=== PATIENT | female | born 1955 | race Caucasian/White ===

== ENCOUNTER → 2017-03-03 | Outpatient (CLI) | payer OTHER | LOC: BMCIMAGING 13:41 | PROVIDERS: ATTEND Family Medicine | DX: S22.41XA Multiple fractures of ribs, right side, initial encounter for closed fracture (principal) | CPT/HCPCS: 71101-PO ==

== ENCOUNTER → 2017-03-11 | Outpatient (CLI) | payer OTHER | LOC: FIMAGING 15:06 | PROVIDERS: ATTEND Physician Assistant | DX: M79.89 Other specified soft tissue disorders (principal) ==

== ENCOUNTER → 2017-11-10 | Outpatient (CLI) | payer OTHER ==
[~2017-11-10] MED LIST: GADOBUTROL 10 ML VIAL IVP ONE
== END ==
LOC: FIMAGING 15:07
PROVIDERS: ATTEND Psychiatry & Neurology Neurology
DX: D32.9 Benign neoplasm of meninges, unspecified (principal); G93.89 Other specified disorders of brain
CPT/HCPCS: A9585

== ENCOUNTER → 2017-12-03 | Outpatient (CLI) | payer OTHER | LOC: FIMAGING 07:10 | PROVIDERS: ATTEND Psychiatry & Neurology Neurology | DX: D32.9 Benign neoplasm of meninges, unspecified (principal); H57.12 Ocular pain, left eye; H53.8 Other visual disturbances; H05.20 Unspecified exophthalmos | CPT/HCPCS: A9585 ==

== ENCOUNTER 2017-12-15 08:48 | Inpatient (IN) | payer OTHER ==
--- NOTE | 2017-12-15 08:54 | EDPHY ---
HPI/HX/ROS/PE/MDM Narrative: CHIEF COMPLAINT: Right-sided weakness, stroke alert HPI: The patient is a 62 y/o female with a history of a hemorrhagic stroke in 2013 and complex migraines arriving via EMS as a stroke alert for worsened right -sided contractures and slurred speech. After her previous stroke, she was left with right-sided deficits but had some mobility and sensation and is continent. SHe has been experiencing stomach pain and abdominal weight gain (about 25 pounds) for a few weeks. She saw her PCP earlier this week and an abdominal ultrasound was schedules for Thursday. This morning, around 4:00 AM, 5 hours ago , she awoke with stomach pain. At that time it was noted that her right arm had reduced function. This had happened before and usually resolves. After about 20 minutes, her reports she fell asleep. Around 5:00 AM, the reduced right arm movement hadn't resolved and she had developed slurred speech and a slight facial droop. These symptoms are consistent with her complex migraines. She requested to go to the bathroom and her attempted to help her. He was unable to bend her right leg, a new symptom for her. She was incontinent of urine in bed. Her had her go back to sleep, which usually helps with her complex migraines. Around 8:00 AM, when she awoke, she still hadn't improved. At that time, her decided to call EMS for evaluation of her symptoms. REVIEW OF SYSTEMS: Aside from elements discussed in the HPI, a comprehensive 10-point review of systems was reviewed and is negative. PMH: Hemorrhagic stroke in 2013 with resulting right sided deficits, complex migraines with symptoms mimicking strokes SOCIAL HISTORY: Lives in [place], , retired PHYSICAL EXAM: General: Patient is alert, in no acute distress. ENT: Eyes are normal to inspection. Right-sided facial droop noted. Neck: Normal inspection. Full range of motion. Respiratory: No respiratory distress. Breath sounds normal bilaterally. Cardiovascular: Regular rate and rhythm. Strong peripheral pulses. Normal cap refill. Abdomen: The abdomen is nontender to palpation. There are no peritoneal signs. There are normal bowel sounds. Back: Normal to inspection. No tenderness to palpation. Skin: Normal color. No rash. Warm and dry. Extremities: Normal appearance. Full range of motion. Neuro: Right arm contracture, left had pill rolling tremor. Alert and responsive to commands. Slurred speech. ED Course: Study: CT of the head and neck Indication: Worsened right-sided weakness Results: CT scan of the head and neck was obtained. The results of the study are : negative for acute process The study was read by the radiologist, Dr. Trujillo. I viewed the images myself on the PACS system. Study: CTA of the head and neck Indication: Worsened right-sided weakness, normal CT Results: CTA scan of the head and neck was obtained. The results of the study are: negative for acute process The study was read by the radiologist, Dr. Trujillo. I viewed the images myself on the PACS system. Study: X-ray of the chest Indication: Abdominal pain, weight gain Results: X-ray of the chest was obtained. The results of the study are: possible fluid overload or bronchitis The study was read by the radiologist, Dr. Rueda. I viewed the images myself on the PACS system. Study: Ultrasound of the abdomen Indication: Abdominal pain and weight gain Results: Ultrasound of the abdomen was obtained. The results of the study are: negative for acute findings The study was read by the radiologist, Dr. Rueda. I viewed the images myself on the PACS system. The patient presents with worsened right-sided weakness, facial droop, and slurred speech. I met her in the [facility] on EMS arrival at 8:52. After EMS report I sent her straight to CT. 9:01 AM- I evaluated her non-contrast CT and did not find evidence of a bleed. I will contact [facility]. 9:06 AM- [facility] was reached. They advised a CTA for further imaging. Since this patient is not a candidate for TPA they will not evaluate this patient at this time. 9:32 AM- The patient has had her CTA. At this time her is at the bedside. I performed a complete evaluation and was informed of the history of complex migraines that mimic stroke symptoms and the abdominal weight gain and pain. If her CTA is not indicative of a clot, imaging for a stroke will be discontinued as the patient has a history of complex migraines with similar symptoms. If she does not return to near baseline, plan for admission for observation. 10:24 AM- I spoke with the hospitalist service regarding admission for this patient. Dr. Black will admit this patient. I paged neurology. Dr. Parham, neurology agrees to consult. 11:52 AM- Patient reports that "everything hurts." I have ordered Toradol. MDM: This patient presents as a stroke alert given acute onset of worsening of chronic weakness. Thankfully CTH and CTA are negative. We have been unable to obtain a urine specimen so far. The patient will need to be admitted for further observation and workup. Etiology of symptoms is currently unknown. I see no evidence of ACS, hyponatremia, hemorrhagic CVA, concussion or ARF. Her PCP has apparently been working her up for abdominal pain and her has requested an US of her abdomen which was ordered. - Data Points Imaging Results: Imaging Impressions Chest X-Ray 12/15/17 08:50 Impression: Hypoventilatory chest with mild peribronchial thickening that could be related to fluid overload or bronchitis. Head CT 12/15/17 08:50 Impression: 1. No acute intracranial hemorrhage or evidence of acute ischemia. 2. Extensive encephalomalacia and atrophy involving bilateral parietal, left frontal, and posterior left temporal lobes have not significantly changed. Findings discussed with Emergency Department physician, Ankush Dallas MD on at 9:10 a.m. Head CTA 12/15/17 09:08 Impression: 1. Normal intracranial arterial circulation. No evidence of embolic disease or aneurysm. 2. Small caliber sagittal sinus and numerous enlarged cortical draining veins are unchanged since 2012. Findings discussed with Emergency Department physician, Ankush Dallas MD, on 12/15/2017 at 9:50 a.m. Neck CTA 12/15/17 09:08 Impression: Widely patent carotid and vertebral arteries. No occlusion or dissection. Measurement of carotid stenosis is based on the residual internal carotid diameter with [place] Symptomatic Carotid Endarterectomy Trial (NASCET) based stenosis levels. Findings discussed with Emergency Department physician, Ankush Dallas MD on 12/15/2017 at 9:50 a.m. Abdomen Ultrasound 12/15/17 09:39 Impression: Limited abdominal ultrasound with no definite acute findings, with limited visibility of the gallbladder and liver and nonvisualization of the spleen. Findings discussed with Ankush Dallas MD on 12/15/2017 at 10:36 a.m. e:[id number] Laboratory Results: Laboratory Results 12/15/17 08:45 12/15/17 08:45 12/15/17 12/15/17 12/15/17 09:14 08:46 08:45 WBC RBC Hgb POC Hgb 14.6 gm/dL gm/dL (12.6-16.3) Hct POC Hct 43 % % (38-47) MCV MCH MCHC RDW Plt Count MPV Neut % (Auto) Lymph % (Auto) Gilchrist % (Auto) Eos % (Auto) Baso % (Auto) Nucleat RBC Rel Count Absolute Neuts (auto) Absolute Lymphs (auto) Absolute Monos (auto) Absolute Eos (auto) Absolute Basos (auto) Absolute Nucleated RBC Immature Gran % Immature Gran # PT 13.2 SEC SEC (12.0-15.0) INR 0.98 (0.83-1.16) POC Sodium 139 mEq/L mEq/L (135-145) Sodium 138 mEq/L mEq/L (135-145) POC Potassium 4.2 mEq/L mEq/L (3.3-5.0) Potassium 4.7 mEq/L mEq/L (3.5-5.2) POC Chloride 102 mEq/L mEq/L (97-110) Chloride 104 mEq/L mEq/L (97-110) Carbon Dioxide 23 mEq/l mEq/l (22-31) Anion Gap 11 mEq/L mEq/L (8-16) POC BUN 20 mg/dL mg/dL (7-23) BUN 19 mg/dL mg/dL (7-23) Creatinine 0.7 mg/dL mg/dL (0.6-1.0) POC Creatinine 0.8 mg/dL mg/dL (0.6-1.0) Estimated GFR > 60 Glucose 80 mg/dL mg/dL (70-100) POC Glucose 84 mg/dL mg/dL (70-100) Calcium 9.9 mg/dL mg/dL (8.5-10.4) 12/15/17 12/15/17 08:45 08:45 WBC 3.17 10^3/uL L 10^3/uL (3.80-9.50) RBC 4.52 10^6/uL 10^6/uL (4.18-5.33) Hgb 14.6 g/dL g/dL (12.6-16.3) POC Hgb Hct 42.9 % % (38.0-47.0) POC Hct MCV 94.9 fL fL (81.5-99.8) MCH 32.3 pg pg (27.9-34.1) MCHC 34.0 g/dL g/dL (32.4-36.7) RDW 13.0 % % (11.5-15.2) Plt Count 234 10^3/uL 10^3/uL (150-400) MPV 9.9 fL fL (8.7-11.7) Neut % (Auto) 52.4 % % (39.3-74.2) Lymph % (Auto) 34.1 % % (15.0-45.0) Gilchrist % (Auto) 11.0 % % (4.5-13.0) Eos % (Auto) 1.6 % % (0.6-7.6) Baso % (Auto) 0.6 % % (0.3-1.7) Nucleat RBC Rel Count 0.0 % % (0.0-0.2) Absolute Neuts (auto) 1.66 10^3/uL L 10^3/uL (1.70-6.50) Absolute Lymphs (auto) 1.08 10^3/uL 10^3/uL (1.00-3.00) Absolute Monos (auto) 0.35 10^3/uL 10^3/uL (0.30-0.80) Absolute Eos (auto) 0.05 10^3/uL 10^3/uL (0.03-0.40) Absolute Basos (auto) 0.02 10^3/uL 10^3/uL (0.02-0.10) Absolute Nucleated RBC 0.00 10^3/uL 10^3/uL (0-0.01) Immature Gran % 0.3 % % (0.0-1.1) Immature Gran # 0.01 10^3/uL 10^3/uL (0.00-0.10) PT REJ INR REJ POC Sodium Sodium POC Potassium Potassium POC Chloride Chloride Carbon Dioxide Anion Gap POC BUN BUN Creatinine POC Creatinine Estimated GFR Glucose POC Glucose Calcium Medications Given: Discontinued Medications Ketorolac Tromethamine (Toradol) 15 mg IVP EDNOW ONE Stop: 12/15/17 11:53 Last Admin: 12/15/17 11:56 Dose: 15 mg Point of Care Test Results: 12/15/17 08:46 POC Sodium 139 POC Potassium 4.2 POC Chloride 102 POC BUN 20 POC Creatinine 0.8 POC Glucose 84 General Initial Vital Signs: Initial Vital Signs Temperature (C) 37 C 12/15/17 08:48 Heart Rate 65 12/15/17 08:48 Respiratory Rate 16 12/15/17 08:48 Blood Pressure 131/86 H 12/15/17 08:48 O2 Sat (%) 92 12/15/17 08:48 O2 Delivery Mode Room Air Allergies/Adverse Reactions: No Allergies [NKA] Allergy (Verified 12/15/17 09:07) Home Medications: Medication Instructions Recorded Sertraline HCl [Zoloft 50mg (*)] 50 mg PO DAILY #30 tab 01/05/15 Baclofen [Baclofen 10 mg (*)] 15 mg PO BID@08,16 02/01/16 Baclofen [Baclofen 10 mg (*)] 20 mg PO HS 02/01/16 Carbidopa/Levodopa 25/100Mg 1 tab PO BID@,21 02/01/16 [Sinemet 25/100 MG (*)] Carbidopa/Levodopa 0.5 tab PO DAILY@16 02/01/16 [Carbidopa-Levodopa 25-100 Tab] levETIRAcetam [Keppra 500 mg (*)] 1,000 mg PO DAILY 02/01/16 levETIRAcetam [Keppra 500 mg (*)] 500 mg PO HS 02/01/16 Diazepam [Valium 5 MG (*)] 5 mg PO BID PRN 12/15/17 levETIRAcetam [Keppra 250 mg (*)] 250 mg PO DAILY 12/16/17 Departure - Departure Disposition: [facility] Inpatient Acute Clinical Impression: Altered mental status Qualifiers: Altered mental status type: unspecified Qualified Code(s): R41.82 - Altered mental status, unspecified Condition: Fair Report Scribed for: Ankush Dallas Report Scribed by: Daysi Li Date of Report: 12/15/17 Time of Report: 08:55 Physician Review and Approval Statement: Portions of this note were transcribed by an ED scribe. I personally performed the history, physical exam, and medical decision making; and confirm the accuracy of the information in the transcribed note.
[2017-12-15 09:04] LABS: PLATELET COUNT 234 10^3/uL (150-400)
--- NOTE | 2017-12-15 09:08 | CPEKG ---
Heart Rate: 63 RR Interval: 952 P-R Interval: 204 QRSD Interval: 92 QT Interval: 460 QTC Interval: 471 P [place]: 39 QRS [place]: -36 T Wave [place]: 54 EKG Severity - OTHERWISE NORMAL ECG - EKG Impression: SINUS RHYTHM EKG Impression: LEFT AXIS DEVIATION Electronically Signed By: Ankush Dallas 15-Dec-2017 13:34:30
[2017-12-15] MEDS ORDERED: IOPAMIDOL (ISOVUE 370) 100 ML BTL IV ONE (09:15)
[2017-12-15 09:30] LABS: INR 0.98 (0.83-1.16); PROTIME(PATIENT) 13.2 SEC (12.0-15.0)
[2017-12-15] MEDS ORDERED: KETOROLAC 15 MG/1 ML SDV IVP ONE (11:52)
[2017-12-15] MEDS ORDERED: ONDANSETRON DISINTEGRATING 4 MG TAB PO PRN (15:27)
[2017-12-15] MEDS ORDERED: ACETAMINOPHEN 325 MG TAB PO PRN (15:27)
[2017-12-15] MEDS ORDERED: oxyCODONE IR 5 MG TAB PO PRN (15:27)
[2017-12-15] MEDS ORDERED: ONDANSETRON 4 MG/2 ML VIAL IVP PRN (15:27)
[2017-12-15] MEDS ORDERED: NS 1,000 ML IV SCH (15:30)
[2017-12-15] MEDS: BACLOFEN 10 MG TAB PO SCH ×3 (15:49→22:07)
--- NOTE | 2017-12-15 15:59 | GHP ---
[f rep st] HISTORY AND PHYSICAL DATE OF ADMISSION: 12/15/2017 CHIEF COMPLAINT: Right-sided weakness. HISTORY OF PRESENT ILLNESS: This is a 62-year-old female with a history of meningioma that has been resected 4 times, as well as a hemorrhagic stroke resulting in chronic right-sided deficits and what appears to be complex migraines with worsening of those deficits, mimicking stroke symptoms in the [address]. These episodes usually cluster around every 6 months and occur several times within the month. They usually manifest as right-sided facial droop, some aphasia, stiffness in her right arm. Patient has not been feeling well for the last week and has had abdominal pain as well as weight gain , which has all been in her abdomen. She was actually scheduled for an abdominal ultrasound for this . This morning she woke again with the stomach pain and then had essentially symptoms similar to her complex migraine syndrome. However, symptoms seem to be worse in severity, and they are not clearin g as quickly as before. Currently, she is somewhat responsive to questions but somnolent and mildly aphasic. History is obtained from her . She has not been having any fevers or chills. She i s not having a headache now. Again, these symptoms are similar in nature to her previous complex jimenez luis miguel but are worse than normal. REVIEW OF SYSTEMS: Limited review of systems obtained secondary to patient's somnolence. PAST MEDICAL HISTORY: 1. Meningiomas with multiple resections. 2. Hemorrhagic stroke, which left her with the right arm and the right leg weakness. 3. 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 4. Complex migraines as above, mimicking stroke. 5. History of focal seizure disorder. 6. History of occipital condylar fracture. 7. Multiple orthopedic injuries. SOCIAL HISTORY: No smoking. Lives with her . FAMILY HISTORY: Reviewed, noncontributory. PHYSICAL EXAM: VITAL SIGNS: Afebrile. Blood pressure is 128/81, heart rate 63, oxygen saturation 9 7% on 2 L. GENERAL: Patient is well developed. No apparent distress. HEENT: Nonicteric sclerae. Moist mucous membranes. NECK: Supple. No thyromegaly. LUNGS: Good effort. Clear to auscultatio n bilaterally. CARDIOVASCULAR: Regular rate and rhythm. No murmurs or gallops. ABDOMEN: It is so mewhat distended but soft, nontender. EXTREMITIES: No clubbing, cyanosis, or edema. SKIN: Without rash. Warm, dry, intact. NEUROLOGIC: Mild right facial droop. Some expressive aphasia and somnol ence. Right arm is spastically contracted. LABORATORY DATA: White count is 3, hemoglobin 14. Chemistries normal. LFTs a few days ago showed j ust a minimal elevation of AST. IMAGING: CT scans of the head and CT scans of the neck showed extensive encephalomalacia, which is u nchanged. No evidence of any embolism or clot. Abdominal ultrasound was unable to really assess the gallbladder. ASSESSMENT: A 62-year-old female presenting with what seems to be complex migraine symptoms along wi th abdominal pain and abdominal distention. PLAN: 1. Probable complex migraine syndrome. The patient does have baseline deficits in the right side, a nd these seem to be worse and are exacerbated with what have been called complex migraines. She has presented with basically the same symptomatology, although it has been worse. Neurology has been con sulted and will see if there is any indication for some preventative medications. 2. Abdominal pain, weight gain, and abdominal distention. Will get a CAT scan of her abdomen and pe lvis. Would like to give her contrast, although she has received a lot of contrast with her CTAs. W ill hold off and get that in the morning. 3. History of encephalomalacia, meningiomas, previous bleed, with chronic right-sided weakness. 4. History of partial seizures. 5. History of spasms. Will continue the baclofen. /[id number]/MODL
--- NOTE | 2017-12-15 16:21 | NEUROPROG ---
Assessment: Pt seen and examined, note to come later today. Will obtain brain MRI w/o con as next step in evaluation. Objective: Vital Signs Temp Pulse Resp BP Pulse Ox 36.4 C 63 16 128/81 H 97 12/15/17 12:59 12/15/17 12:59 12/15/17 12:59 12/15/17 12:59 12/15/17 12:59 PT 13.2 SEC (12.0-15.0) 12/15/17 09:14 INR 0.98 (0.83-1.16) 12/15/17 09:14 Allergies/Adverse Reactions: No Allergies [NKA] Allergy (Verified 12/15/17 09:07)
--- NOTE | 2017-12-15 19:22 | NEUROPROG ---
Assessment: [id number] - Neurology Consult: - CC: Worsening right sided weakness - HPI: The patient was brought to [facility] ER on 12/15/17 for right sided weakness. She had a history of multiple brain surgeries to remove meningiomas, a hemorrhagic stroke in 2013, as well as complex migraines. After her 2013 stroke she was left with right sided weakness. She has been working with her PCM for stomach pain in the last week. This morning she awoke with stomach pain at 4 am but also noted worsened right-sided weakness. This had occurred before and usually resolves but by 5am the right arm was still weak and she was also noting some right facial droop and slurred speech. She has had complex migraines in the past with these symptoms. Her also noted right leg weakness and urinary incontinence. She fell back asleep but awoke at 8 am w/o improvement of symptoms so EMS was called. Head CT and CTA head/neck showed no new acute changes. Pt was admitted for further evaluation and neurology was consulted. I initially saw the patient on 12/15/17. Her neurologic exam showed right arm/ leg weakness with spasticity and she was somnolent and in pain (recently received narcotics). I was not sure what was causing her symptoms so I ordered a brain MRI w/o con. - PMHx: hemorrhagic stroke 2013 w/resulting right sided deficits, complex migraines, multiple meningiomas with surgical revision - SHx: lives in [place] FHx: grandparents - ROS: Pt denied acute fever, total vision loss, active severe chest pain, respiratory failure, total body severe rash, total bowel/bladder incontinence, psychosis, active seizures, or active bleeding - O: VS reviewed General: Somnolent Eyes: Fundoscopic exam not able to visualize optic disks CV: Heart RRR, no murmur, no carotid bruit Lungs: Clear to auscultation bilaterally, no rhonchi or rales Neuro: - Mental: . Oriented x person/place but not date . concentration appears reduced . speech fluency/comprehension reduced . memory appears reduced . fund of knowledge appear reduced - Cranial Nerves: . II: PERRL, VFFTC . III/IV/: EOMI, no nystagmus, normal smooth pursuits, no Ptosis . V: facial sensation intact to LT . VII: face symmetry difficult as patient in pain and will not relax . VIII: hearing intact to conversation . IX/X: pt will not participate in testing . XI: pt will not participate in testing . XII: pt will not participate in testing - Motor: . Tone: increased in right arm/leg . Strength: right arm and right leg appear weak and spastic but pt will not relax to allow full strength testing - Reflexes: left bic 2/4 - Sensory: all 4 extremity intact to light touch - Coord: pt will not participate in testing - Gait: deferred - Labs: 12/15/17- CBC WBC 3.17L, Chem wnl - Rads: 12/15/17- Head CT: no acute changes, Extensive encephalomalacia and atrophy involving bilateral parietal, left frontal, and posterior left temporal lobes have not significantly changed (I personally visualized the images on 12/15/17) 12/15/17- Head/neck CTA: no significant findings - Assessment: 1. Worsening right sided weakness in patient with previous hemorrhagic stroke in 2013 and multiple meningioma resections with residual right sided weakness: Her neurologic exam showed on 12/15/17 showed right arm/leg weakness with spasticity and she was somnolent and in pain (recently received narcotics). I suspect her recent stomach pain and associated stress has liked stressed her body and caused recrudescence of right sided weakness from previous stroke in 2013. She has been symptomatic for > 12 hours so I will obtain a brain MRI and if no acute stroke is seen I will conclude she is having recurrence of old stroke weakness. Treatment would then be supportive. - Plan: - Brain MRI w/o con to evaluate for new ischemic stroke - PT/OT/Speech consult - F/u 1-[address] Keenan (neurology) after discharge Objective: Vital Signs Temp Pulse Resp BP Pulse Ox 36.4 C 63 16 128/81 H 97 12/15/17 12:59 12/15/17 12:59 12/15/17 12:59 12/15/17 12:59 12/15/17 12:59 12/14/17 12/15/17 12/16/17 05:59 05:59 05:59 Intake Total 250 Balance 250 PT 13.2 SEC (12.0-15.0) 12/15/17 09:14 INR 0.98 (0.83-1.16) 12/15/17 09:14 Allergies/Adverse Reactions: No Allergies [NKA] Allergy (Verified 12/15/17 09:07)
[2017-12-15] MEDS: levETIRAcetam 500 MG TAB PO SCH (22:05)
[2017-12-16] MEDS: DIAZEPAM 5 MG TAB PO PRN (00:07)
[2017-12-16 05:46] LABS: PLATELET COUNT 197 10^3/uL (150-400)
[2017-12-16] MEDS: levETIRAcetam 500 MG TAB PO SCH ×2 (09:11→20:39)
[2017-12-16] MEDS: SERTRALINE HCL 50 MG TAB PO SCH (09:12)
[2017-12-16] MEDS: BACLOFEN 10 MG TAB PO SCH ×3 (09:22→20:39)
--- NOTE | 2017-12-16 09:46 | NEUROPROG ---
Assessment: [id number] - Neurology Consult: - CC: Worsening right sided weakness - Narrative Summary: The patient was brought to [facility] ER on 12/15/17 for right sided weakness. She had a history of multiple brain surgeries to remove meningiomas, a hemorrhagic stroke in 2013, as well as complex migraines. After her 2013 stroke she was left with right sided weakness. She has been working with her PCM for stomach pain in the last week. This morning she awoke with stomach pain at 4 am but also noted worsened right-sided weakness. This had occurred before and usually resolves but by 5am the right arm was still weak and she was also noting some right facial droop and slurred speech. She has had complex migraines in the past with these symptoms. Her also noted right leg weakness and urinary incontinence. She fell back asleep but awoke at 8 am w/o improvement of symptoms so EMS was called. Head CT and CTA head/neck showed no new acute changes. Pt was admitted for further evaluation and neurology was consulted. I initially saw the patient on 12/15/17. Her neurologic exam showed right arm/ leg weakness with spasticity and she was somnolent and in pain (recently received narcotics). I was not sure what was causing her symptoms so I ordered a brain MRI w/o con. - HPI: Inpatient f/u 12/16/17. Brain MRI pending. Pt more alert today. She denied new problems. - PMHx: hemorrhagic stroke 2013 w/resulting right sided deficits, complex migraines, multiple meningiomas with surgical revision - SHx: lives in [place] FHx: grandparents - ROS: Pt denied acute fever, total vision loss, active severe chest pain, respiratory failure, total body severe rash, total bowel/bladder incontinence, psychosis, active seizures, or active bleeding - Labs: 12/15/17- CBC WBC 3.17L, Chem wnl - Rads: 12/15/17- Head CT: no acute changes, Extensive encephalomalacia and atrophy involving bilateral parietal, left frontal, and posterior left temporal lobes have not significantly changed (I personally visualized the images on 12/15/17) 12/15/17- Head/neck CTA: no significant findings - Assessment: 1. Worsening right sided weakness in patient with previous hemorrhagic stroke in 2013 and multiple meningioma resections with residual right sided weakness: Her neurologic exam showed on 12/15/17 showed right arm/leg weakness with spasticity and she was somnolent and in pain (recently received narcotics). I suspect her recent stomach pain and associated stress has liked stressed her body and caused recrudescence of right sided weakness from previous stroke in 2013. She has been symptomatic for > 12 hours so I will obtain a brain MRI and if no acute stroke is seen I will conclude she is having recurrence of old stroke weakness. Treatment would then be supportive. - Plan: - Brain MRI w/o con to evaluate for new ischemic stroke - PT/OT/Speech consult - F/u 1-[address] Keenan (neurology) after discharge - 35 min spent with patient, her nurse, and the patients outpatient neurologist ( Dr. Keenan) counseling and coordinating care. Objective: Vital Signs Temp Pulse Resp BP Pulse Ox 36.4 C 66 12 97/75 L 93 12/16/17 08:00 12/16/17 08:00 12/16/17 08:00 12/16/17 08:00 12/16/17 08:00 Laboratory Results 12/16/17 05:36 12/16/17 05:36 12/15/17 12/16/17 12/17/17 05:59 05:59 05:59 Intake Total 250 620 Output Total 700 Balance -450 620 PT 13.2 SEC (12.0-15.0) 12/15/17 09:14 INR 0.98 (0.83-1.16) 12/15/17 09:14 Allergies/Adverse Reactions: No Allergies [NKA] Allergy (Verified 12/15/17 09:07)
--- NOTE | 2017-12-16 09:55 | PDMN ---
Medical Necessity Medical necessity: M185 Headache- complex migraine vs. Neuro consult pending pt with weakness R side, with hx of encephalomalacia, meningiomas, previous bleed chronic R sided wekness, Hx of partial SZ, spasms, Pt also presenting with abd pain, wt gain, distention. further eval, monitoring and tx needed
--- NOTE | 2017-12-16 10:13 | ASMTCASEMG ---
Living Arrangements What is your living Answers: With Spouse arrangement? Who do you live with? Type Of Residence What kind of residence do Answers: House you live in? Discharge Plan Comments Coordination Status Comments Notes: Pt is a 62 y/o female admitted for altered mental status and right sided weakness. Needs are TBD at this time. PT, OT, [employer] has been ordered and awaiting recommendations. Neurology has been consulted. CM to follow. Plan: TBD Date Signed: 12/16/2017 10:12 AM Electronically Signed By:SHAHID Haro
[2017-12-16] MEDS ORDERED: IOPAMIDOL (ISOVUE-300) 100 ML BTL ONE (10:47)
[2017-12-16] MEDS ORDERED: MAGNESIUM HYDROXIDE 30 ML UDCUP PO ONE (14:13)
--- NOTE | 2017-12-16 14:13 | HOSPPROG ---
Hospitalist Progress Note Assessment/Plan: * probable complex migraine * MRI does not show any new CVA * Is getting better but not strong enough to go home * Probably home tomorrow * abdominal pain and distention * CT scan shows only constipation * Will start laxatives * Follow up primary care * history of meningiomas * history of intracranial hemorrhage * history of seizure Subjective: Feels a lot better but not at baseline Objective: Vital Signs Temp Pulse Resp BP Pulse Ox 35.7 C L 66 14 128/84 H 94 12/16/17 12:00 12/16/17 12:00 12/16/17 12:00 12/16/17 12:00 12/16/17 12:00 Laboratory Results 12/16/17 05:36 12/16/17 05:36 12/15/17 12/16/17 12/17/17 05:59 05:59 05:59 Intake Total 250 620 Output Total 700 350 Balance -450 270 PT 13.2 SEC (12.0-15.0) 12/15/17 09:14 INR 0.98 (0.83-1.16) 12/15/17 09:14 - Physical Exam Constitutional: no apparent distress, appears nourished, not in pain Cardiovascular: regular rate and rhythym, no murmur, rub, or gallop Respiratory: no respiratory distress Gastrointestinal: normoactive bowel sounds, soft, non-tender abdomen Neurologic: AAOx3, weakness (Right-sided weakness with less spasticity), facial droop (Right), other (Slight aphasia) Psychiatric: interacting appropriately, not anxious, not encephalopathic ICD10 Worksheet Patient Problems: Problems Problem Status Onset Altered mental status Acute Concussion injury of brain Active Intracranial meningioma Active Migraine with aura Active Seizure disorder Active flatfoot Active Acute encephalopathy Acute Intracerebral hematoma Acute
[2017-12-16] MEDS: POLYETHYLENE GLYCOL 3350 17 GM PKT PO SCH ×2 (15:45→15:52)
[2017-12-16] MEDS: CARBIDOPA/LEVODOPA 25 MG/100 MG TAB PO SCH ×2 (15:46→20:38)
[2017-12-17] MEDS: DIAZEPAM 5 MG TAB PO PRN ×2 (00:09→21:00)
[2017-12-17] MEDS: BACLOFEN 10 MG TAB PO SCH ×3 (08:48→20:40)
[2017-12-17] MEDS: levETIRAcetam 500 MG TAB PO SCH ×2 (08:49→20:40)
[2017-12-17] MEDS: CARBIDOPA/LEVODOPA 25 MG/100 MG TAB PO SCH ×3 (08:49→20:40)
[2017-12-17] MEDS: SERTRALINE HCL 50 MG TAB PO SCH (08:49)
[2017-12-17] MEDS: POLYETHYLENE GLYCOL 3350 17 GM PKT PO SCH (08:50)
--- NOTE | 2017-12-17 09:51 | NEUROPROG ---
Assessment: [id number] - Neurology Consult: - CC: Worsening right sided weakness - Narrative Summary: The patient was brought to [facility] ER on 12/15/17 for right sided weakness. She had a history of multiple brain surgeries to remove meningiomas, a hemorrhagic stroke in 2013, as well as complex migraines. After her 2013 stroke she was left with right sided weakness. She has been working with her PCM for stomach pain in the last week. This morning she awoke with stomach pain at 4 am but also noted worsened right-sided weakness. This had occurred before and usually resolves but by 5am the right arm was still weak and she was also noting some right facial droop and slurred speech. She has had complex migraines in the past with these symptoms. Her also noted right leg weakness and urinary incontinence. She fell back asleep but awoke at 8 am w/o improvement of symptoms so EMS was called. Head CT and CTA head/neck showed no new acute changes. Pt was admitted for further evaluation and neurology was consulted. I initially saw the patient on 12/15/17. Her neurologic exam showed right arm/ leg weakness with spasticity and she was somnolent and in pain (recently received narcotics). I was not sure what was causing her symptoms so I ordered a brain MRI w/o con. - Inpatient f/u 12/16/17. Brain MRI pending. Pt more alert today. She denied new problems. - HPI: F/U 12/17/17. Brain MRI showed no acute stroke (results below) and pt doing much better today. I expect her worsening right sided weakness was recrudescence of old stroke symptoms. Treatment is supportive. No further inpatient w/u needed. - PMHx: hemorrhagic stroke 2014 w/resulting right sided deficits, complex migraines, multiple meningiomas with surgical revision - SHx: lives in [place] FHx: grandparents - ROS: Pt denied acute fever, total vision loss, active severe chest pain, respiratory failure, total body severe rash, total bowel/bladder incontinence, psychosis, active seizures, or active bleeding - Labs: 12/15/17- CBC WBC 3.17L, Chem wnl - Rads: 12/15/17- Head CT: no acute changes, Extensive encephalomalacia and atrophy involving bilateral parietal, left frontal, and posterior left temporal lobes have not significantly changed (I personally visualized the images on 12/15/17) 12/15/17- Head/neck CTA: no significant findings 12/16/17- Brain MRI w/o con: No acute ischemia or hemorrhage. Numerous meningiomas are unchanged since 2 weeks prior. The aggressive nature of the left frontal meningioma involving the left frontal bone and left frontal sinus is unchanged. No mass effect or shift. Extensive encephalomalacia and gliosis involving bilateral parietal lobes and left frontal and left temporal lobes is unchanged. - Assessment: 1. Worsening right sided weakness in patient with previous hemorrhagic stroke in 2014 and multiple meningioma resections with residual right sided weakness: Her neurologic exam showed on 12/15/17 showed right arm/leg weakness with spasticity and she was somnolent and in pain (recently received narcotics). I suspect her recent stomach pain and associated stress has liked stressed her body and caused recrudescence of right sided weakness from previous stroke in 2013. Brain MRI on 12/16/17 showed no acute changes. Treatment would then be supportive. - 2. Multiple meningiomas, Left frontal is invasive: Dr. Keenan is aware and is setting up outpatient treatment to address. - Plan: - No further inpatient w/u needed - F/u 1-[address] Keenan (neurology) or Santy Brennan after discharge - 35 min spent with patient and the patients outpatient neurologist (Dr. Keenan ) counseling and coordinating care to include discussing prognosis and treatment options. Objective: Vital Signs Temp Pulse Resp BP Pulse Ox 36.3 C 60 12 105/65 91 L 12/17/17 07:37 12/17/17 07:37 12/17/17 07:37 12/17/17 07:37 12/17/17 07:37 Laboratory Results 12/16/17 05:36 12/16/17 05:36 12/16/17 12/17/17 12/18/17 05:59 05:59 05:59 Intake Total 250 1160 Output Total 700 550 Balance -450 610 PT 13.2 SEC (12.0-15.0) 12/15/17 09:14 INR 0.98 (0.83-1.16) 12/15/17 09:14 Allergies/Adverse Reactions: No Allergies [NKA] Allergy (Verified 12/15/17 09:07)
--- NOTE | 2017-12-17 12:12 | PDIAF ---
- Diagnosis Diagnosis: migraine Code Status: Full Code - Medication Management Discharge Medications: Medications to Continue on Transfer Sertraline HCl [Zoloft 50mg (*)] 50 mg PO DAILY #30 tab 01/05/15 [Last Taken ] Baclofen [Baclofen 10 mg (*)] 15 mg PO BID@08,16 02/01/16 [Last Taken 12/14/17] Baclofen [Baclofen 10 mg (*)] 20 mg PO HS 02/01/16 [Last Taken 12/14/17] Carbidopa/Levodopa 25/100Mg [Sinemet 25/100 MG (*)] 1 tab PO BID@,02/01/16 [Last Taken 12/14/17] Carbidopa/Levodopa [Carbidopa-Levodopa 25-100 Tab] 0.5 tab PO DAILY@02/01/16 [Last Taken 12/14/17] levETIRAcetam [Keppra 500 mg (*)] 1,000 mg PO DAILY 02/01/16 [Last Taken ] levETIRAcetam [Keppra 500 mg (*)] 500 mg PO HS 02/01/16 [Last Taken 12/14/17] Diazepam [Valium 5 MG (*)] 5 mg PO BID PRN 12/15/17 [Last Taken Unknown] Acetaminophen [Tylenol 325mg (*)] 650 mg PO Q4HRS PRN tab 12/17/17 [Last Taken Unknown] Discharge Medications: Refer to the Discharge Home Medication list for PRN reason. PICC Care - Routine: N/A - Orders Services needed: Home Care, Physical Therapy, Occupational Therapy Home Care Face to Face: I certify that this patient was under my care and that I had the required [id number] encounter meeting the encounter requirements on the discharge day. My findings support the fact that the patient is homebound as defined in Home Care Face to Face Continued: CMS Chapter 7 Medicare Benefits Manual 30.1.1 , The condition of the patient is such that there exists a normal inability to leave home and consequently, leaving home would require a considerable and taxing effort. Isolation Type: None Diet Recommendation: no restrictions on diet Diet Texture: Regular Texture Diet, Thin Liquids, Meds Whole w/Liquids - Follow Up Care Current Providers and Referrals: Patient,NotPresent [Unknown] - As per Instructions
--- NOTE | 2017-12-17 14:22 | HOSPPROG ---
Hospitalist Progress Note Assessment/Plan: * probable complex migraine d/t other etiol w/ R hemiplegia * MRI does not show any new CVA * Is getting better but not strong enough to go home * Probably home tomorrow * abdominal pain and distention * CT scan shows only constipation * Will start laxatives * Follow up primary care * history of meningiomas * treatment per neurology * history of intracranial hemorrhage * none currently * history of seizure * no SZ during hospital stay * Dispo * unclear * will need 24 hour care * inpt rehab eval ordered * D/W CM Subjective: Up in chair. Feels well. Wants to go home. Objective: Vital Signs Temp Pulse Resp BP Pulse Ox 36.3 C 62 12 114/77 98 12/17/17 07:37 12/17/17 11:54 12/17/17 11:54 12/17/17 11:54 12/17/17 11:54 Laboratory Results 12/16/17 05:36 12/16/17 05:36 12/16/17 12/17/17 12/18/17 05:59 05:59 05:59 Intake Total 250 1160 Output Total 700 550 Balance -450 610 PT 13.2 SEC (12.0-15.0) 12/15/17 09:14 INR 0.98 (0.83-1.16) 12/15/17 09:14 - Physical Exam Constitutional: appears nourished, not in pain, chronically ill appearing Eyes: PERRL, anicteric sclera, EOMI Ears, Nose, Mouth, Throat: moist mucous membranes, hearing normal, ears appear normal Cardiovascular: regular rate and rhythym, No JVD, No edema Respiratory: no respiratory distress, no rales or rhonchi, reduced air movement Gastrointestinal: normoactive bowel sounds, No tenderness, No ascites Skin: warm, normal color, No erythema Musculoskeletal: no joint effusions, generalized weakness, No normal joint ROM Neurologic: AAOx3, weakness Psychiatric: interacting appropriately, not anxious, not encephalopathic, poor judgement, poor memory ICD10 Worksheet Patient Problems: Problems Problem Status Onset Altered mental status Acute Concussion injury of brain Active Intracranial meningioma Active Migraine with aura Active Seizure disorder Active flatfoot Active Acute encephalopathy Acute Intracerebral hematoma Acute
--- NOTE | 2017-12-17 15:46 | ASMTCMCOM ---
CM Note CM Note Notes: PT recommomding Inpt rehab vs home w/24hr supervision; OT recommending home w/24 hr supervision vs SNF. Pt was going to dc home with today with close to 24 hr care (she has caregiver from 9:30-4:30 and is home in evenings. ([phone]) and pt report there are a few hrs she is alone but she has friends she can call for help if she needs it. Pt required a 2 person assist today from PT/OT together and they did not feel it was safe for her to return home today with only 1 person assisting her to ambulate. I discussed this with who said this is not her baseline and that she is normally able to ambulate with one person assist. He was concerned about taking her home alone with these needs. Order for Inpt rehab put in by hospitalist and discussed w/Pilar. at inpt rehab who is evaluating and will submit for insurance auth. Pt's first choice is to dc home but she did not rule out inpt rehab if necessary. would like to consider inpt rehab but SNF is not an option. He will be here in AM to walk w/pt to see how far from baseline she is. Discussed w/hospitalist and RN. Pt will likely be ready for dc tomorrow whether home or inpt rehab. If home, pt will need HHC and would like to use [facility] (I notified them today). Current dc plan: home w/ and caregiver and [facility] vs. Inpt Rehab Date Signed: 12/17/2017 03:45 PM Electronically Signed By:Abbie Meyer RN
[2017-12-18 00:10] VITALS: RESP 16
[2017-12-18 07:47] VITALS: PULSE 63; TEMP 97.4
[2017-12-18 07:48] VITALS: BP 114/67
[2017-12-18] MEDS: CARBIDOPA/LEVODOPA 25 MG/100 MG TAB PO SCH ×2 (09:08→15:58)
[2017-12-18] MEDS: levETIRAcetam 500 MG TAB PO SCH (09:08)
[2017-12-18] MEDS: SERTRALINE HCL 50 MG TAB PO SCH (09:09)
[2017-12-18] MEDS: POLYETHYLENE GLYCOL 3350 17 GM PKT PO SCH (09:09)
[2017-12-18] MEDS: BACLOFEN 10 MG TAB PO SCH ×2 (09:09→15:58)
--- NOTE | 2017-12-18 14:57 | HOSPPROG ---
Hospitalist Progress Note Assessment/Plan: 62y female with weakness. * probable complex migraine d/t other etiol w/ R hemiplegia * MRI does not show any new CVA * is getting better but not strong enough to go home * needs further therapy * not at baseline * abdominal pain and distention * CT scan shows only constipation * resolved * Follow up primary care * history of meningiomas * treatment per neurology * fu outpt * history of intracranial hemorrhage * none currently * history of seizure * no SZ during hospital stay * Dispo * unclear * will need 24 hour care * inpt rehab eval ordered * D/W CM Subjective: Up in chair. Feels ok but still weak. Objective: Vital Signs Temp Pulse Resp BP Pulse Ox 36.3 C 63 16 114/67 92 12/18/17 07:44 12/18/17 07:44 12/18/17 07:44 12/18/17 07:44 12/18/17 07:44 Laboratory Results 12/16/17 05:36 12/16/17 05:36 12/17/17 12/18/17 12/19/17 05:59 05:59 05:59 Intake Total 1160 600 Output Total 550 1500 Balance 610 -900 PT 13.2 SEC (12.0-15.0) 12/15/17 09:14 INR 0.98 (0.83-1.16) 12/15/17 09:14 - Physical Exam Constitutional: appears nourished, not in pain, chronically ill appearing Eyes: PERRL, anicteric sclera, EOMI Ears, Nose, Mouth, Throat: moist mucous membranes, hearing normal, ears appear normal Cardiovascular: No JVD, No tachycardia, No edema Respiratory: no respiratory distress, no rales or rhonchi, reduced air movement Gastrointestinal: normoactive bowel sounds, No tenderness, No ascites Skin: warm, normal color, No erythema Musculoskeletal: no joint effusions, muscular tenderness, abnormal gait, generalized weakness, No normal joint ROM Neurologic: AAOx3, weakness Psychiatric: interacting appropriately, not anxious, not encephalopathic, poor judgement ICD10 Worksheet Patient Problems: Problems Problem Status Onset Migraine with aura Active Seizure disorder Active Concussion injury of brain Active Intracranial meningioma Active flatfoot Active Intracerebral hematoma Acute Acute encephalopathy Acute Altered mental status Acute
--- NOTE | 2017-12-18 15:35 | PDIAF ---
- Diagnosis Diagnosis: migraine Code Status: Full Code - Medication Management Discharge Medications: Medications to Continue on Transfer Sertraline HCl [Zoloft 50mg (*)] 50 mg PO DAILY #30 tab 01/05/15 [Last Taken ] Baclofen [Baclofen 10 mg (*)] 15 mg PO BID@08,16 02/01/16 [Last Taken 12/14/17] Baclofen [Baclofen 10 mg (*)] 20 mg PO HS 02/01/16 [Last Taken 12/14/17] Carbidopa/Levodopa 25/100Mg [Sinemet 25/100 MG (*)] 1 tab PO BID@,02/01/16 [Last Taken 12/14/17] Carbidopa/Levodopa [Carbidopa-Levodopa 25-100 Tab] 0.5 tab PO DAILY@16 02/01/16 [Last Taken 12/14/17] levETIRAcetam [Keppra 500 mg (*)] 1,000 mg PO DAILY 02/01/16 [Last Taken ] levETIRAcetam [Keppra 500 mg (*)] 500 mg PO HS 02/01/16 [Last Taken 12/14/17] Diazepam [Valium 5 MG (*)] 5 mg PO BID PRN 12/15/17 [Last Taken Unknown] Acetaminophen [Tylenol 325mg (*)] 650 mg PO Q4HRS PRN tab 12/17/17 [Last Taken Unknown] Discharge Medications: Refer to the Discharge Home Medication list for PRN reason. PICC Care - Routine: N/A - Orders Services needed: Home Care, Physical Therapy, Occupational Therapy Home Care Face to Face: I certify that this patient was under my care and that I had the required [id number] encounter meeting the encounter requirements on the discharge day. My findings support the fact that the patient is homebound as defined in Home Care Face to Face Continued: CMS Chapter 7 Medicare Benefits Manual 30.1.1 , The condition of the patient is such that there exists a normal inability to leave home and consequently, leaving home would require a considerable and taxing effort. Isolation Type: None Diet Recommendation: no restrictions on diet Diet Texture: Regular Texture Diet, Thin Liquids, Meds Whole w/Liquids - Follow Up Care Current Providers and Referrals: Lisa Lee MD [Primary Care Provider] - Patient,NotPresent [Unknown] - As per Instructions Yoandy Keenan MD [Medical Doctor] -
[2017-12-18 16:20] VITALS: O2SAT 93
--- NOTE | 2017-12-18 16:23 | ASMTCMCOM ---
CM Note CM Note Notes: Pt medically stable for d/c. Pt denied by [facility] for [facility] inpatient rehab today. Pt delfin Colton ([phone]) has worked w [facility] inpatient rehab staff and made calls to insurance himself to try to get denial reversed. Colton is adamant pt will not d/c to SNF. By the afternoon when it seems to Colton the insurance will not authorize inpatient rehab he decides pt will d/c home w [facility] OT/PT, private pay caregivers from 09:30a-04:30p and delfin supervision in pm. Date Signed: 12/18/2017 04:23 PM Electronically Signed By:EDDIE Sepulveda
--- NOTE | 2017-12-18 16:24 | ASDISCHSUM ---
Discharge Information Plan Status:Home with Home Health Medically Cleared to Leave: Discharge Date:12/18/2017 04:17 PM CM D/C Disposition:Home Health Service ADT D/C Disposition:Home Health Service Projected Discharge Date:12/18/2017 11:00 AM Transportation at D/C:Family Discharge Delay Reason: Follow-Up Date:12/18/2017 11:00 AM Discharge Slot: Final Diagnosis: Placement Information Referral Type:*Home Health Care Services Referral ID:[id number] Provider Name:[facility] Address 1:[address] Address 2: City:[place] Selection Factors: State:[place] Patient Contact Information Contact Name:RAZA Relationship: Address:[address] City:[place] Alternate Phone: State/Zip Code:[place] [address] Email: Financial Information Financial Class:[facility] Primary Plan Desc:[facility] Primary Plan Number:[id number] Secondary Plan Desc: Secondary Plan Number: Assessment Information [facility] Initial CM Assessment Living Arrangements What is your living Answers: With Spouse arrangement? Who do you live with? Type Of Residence What kind of residence do Answers: House you live in? Discharge Plan Comments Coordination Status Comments Notes: Pt is a 62 y/o female admitted for altered mental status and right sided weakness. Needs are TBD at this time. PT, OT, [employer] has been ordered and awaiting recommendations. Neurology has been consulted. CM to follow. Plan: TBD Date Signed: 12/16/2017 10:12 AM Electronically Signed By:SHAHID Haro [facility] CM Progress Note CM Note CM Note Notes: PT recommomding Inpt rehab vs home w/24hr supervision; OT recommending home w/24 hr supervision vs SNF. Pt was going to dc home with today with close to 24 hr care (she has caregiver from 9:30-4:30 and is home in evenings. ([phone]) and pt report there are a few hrs she is alone but she has friends she can call for help if she needs it. Pt required a 2 person assist today from PT/OT together and they did not feel it was safe for her to return home today with only 1 person assisting her to ambulate. I discussed this with who said this is not her baseline and that she is normally able to ambulate with one person assist. He was concerned about taking her home alone with these needs. Order for Inpt rehab put in by hospitalist and discussed w/Pilar. at inpt rehab who is evaluating and will submit for insurance auth. Pt's first choice is to dc home but she did not rule out inpt rehab if necessary. would like to consider inpt rehab but SNF is not an option. He will be here in AM to walk w/pt to see how far from baseline she is. Discussed w/hospitalist and RN. Pt will likely be ready for dc tomorrow whether home or inpt rehab. If home, pt will need HHC and would like to use [facility] (I notified them today). Current dc plan: home w/ and caregiver and [facility] vs. Inpt Rehab Date Signed: 12/17/2017 03:45 PM Electronically Signed By:Abbie Meyer RN [facility] CM Progress Note CM Note CM Note Notes: Pt medically stable for d/c. Pt denied by [facility] for [facility] inpatient rehab today. Pt delfin Colton ([phone]) has worked w [facility] inpatient rehab staff and made calls to insurance himself to try to get denial reversed. Colton is adamant pt will not d/c to SNF. By the afternoon when it seems to Colton the insurance will not authorize inpatient rehab he decides pt will d/c home w [facility] OT/PT, private pay caregivers from 09:30a-04:30p and delfin supervision in pm. Date Signed: 12/18/2017 04:23 PM Electronically Signed By:EDDIE Sepulveda Intervention Information Intervention Type:*Incorrect Registration Date of Service:12/16/2017 09:44 AM Patient Type:Observation Staff Member:SMITA Wolfe, Analia Hours: Discipline: Severity: Comment:
--- NOTE | 2017-12-18 17:12 | GDS ---
[f rep st] DISCHARGE SUMMARY DISCHARGE DIAGNOSES: 1. Acute onset of weakness. 2. Complex migraine with right hemiplegia. 3. Abdominal pain and distention. 4. History of meningiomas. 5. History of intracranial hemorrhage. 6. History of seizure. CONSULTATIONS: Neurology. STUDIES AND PROCEDURES DONE: 1. CT angio of the head and neck. 2. Abdominal ultrasound. 3. CT of the abdomen. 4. MRI of the brain. HOSPITAL COURSE: The patient is a 62-year-old female who presented to the emergency room with compla ints of weakness. She was evaluated and diagnosed with: 1. Acute onset of weakness. The etiology of this continues to remain unclear. Her weakness is impr oving. She does require continued physical therapy as well as occupational therapy. She has not ret urned to her baseline yet. The patient was evaluated for inpatient rehab, however, her insurance has denied. She has been offered [facility], but the patient and her have denied kvng t. She will go home with home health care. 2. Probable complex migraine with right hemiplegia. She did receive a consultation from Neurology d twylaing this hospital course. This condition has resolved and she will follow up with Neurology in the outpatient setting. 3. Abdominal pain and distention. A CT scan demonstrated constipation. The patient has had bowel t herapy during this hospitalization. This has resolved. 4. History of meningiomas. Treatment per Neurology. These appear to be stable. 5. History of intracranial hemorrhage. No evidence of this during this hospitalization. DISPOSITION: The patient will be discharged home with 24-hour care and home health care. [facility] and [facility] by the patient's insurance company. Skilled Nurs ing Facility has been offered, but the patient and her are refusing at this time. She will g o home with her and 24-hour care as well as home care including physical therapy and occupati onal therapy. DISCHARGE MEDICATIONS: Please refer to EMR form. I have not adjusted the patient's previously presc ribed home medications to the best of my knowledge. FOLLOWUP: Will be with her primary care physician, Dr. Lisa Lee, as well as Dr. Yoandy Keenan of Neurology. I have reviewed the patient's disposition with Case Management. I spent greater than 35 minutes in t he care, coordination, and management of the patient's disposition. /[id number]/MODL
== END 2017-12-18 16:17 | disposition home health service (06) | DRG 103 ==
LOC: EDBD → EDUNIT# → OBSVTOIN 10:25 → F3N 12:52
PROVIDERS: ADMIT Internal Medicine; ATTEND Internal Medicine
DX: G43.809 Other migraine, not intractable, without status migrainosus (principal); I69.351 Hemiplegia and hemiparesis following cerebral infarction affecting right dominant side; I69.398 Other sequelae of cerebral infarction; R26.1 Paralytic gait; R10.84 Generalized abdominal pain; R63.5 Abnormal weight gain; G93.89 Other specified disorders of brain; Z86.011 Personal history of benign neoplasm of the brain; Z87.81 Personal history of (healed) traumatic fracture
CPT/HCPCS: 82947-QW; 92523-GN; 92610-GN; 96374; 97112-GP; 97116-GP; 97162-GP; 97167-GO; 97530-GO; 97535-GO; J1885; Q9967

== ENCOUNTER 2018-01-04 11:59 | Emergency (ER) | payer OTHER ==
[2018-01-04 12:14] LABS: PLATELET COUNT 233 10^3/uL (150-400)
--- NOTE | 2018-01-04 12:14 | EDPHY ---
HPI/HX/ROS/PE/MDM Narrative: CHIEF COMPLAINT: Lethargy, AMS HISTORY OF PRESENT ILLNESS: The patient is a 62 y/o female arriving via EMS at the referral of her neurologist for head CT due to increasing lethargy and altered mentation this morning. She has a complex medical history including prior hemorrhagic CVA with right-sided deficits, meningioma with multiple resections status-post radiation that is currently inoperable and expanding, ataxia with frequent falls and multiple fractures, and frequent states of altered mental status. Her noticed significantly increasing lethargy and altered mentation this morning. She was last seen at baseline around 22:30 last night, about 13.5 hours ago. EMS reported left-sided weakness on their assessment. Patient is non-verbal and unable to contribute to history, but she is able to follow some commands. Per neurologist, she is generally quiet but is capable of conversing. Unknown if recent illness, trauma, or any other symptoms. Additional history from after his arrival: over the last 2-3 weeks she has had episodes of right arm contracture that is new for her. Left eye proptosis has also been worsening. REVIEW OF SYSTEMS: Limited by presentation. PAST MEDICAL HISTORY: 1. Meningioma with 4 resections and radiation and 2 subsequent left eye orbital reconstructions 2. Hemorrhagic CVA 2012 with baseline right-sided deficits 3. 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 4. Multiple TIAs and complex migraines mimicking stroke 5. L4/L5 spinal fusions 6. History of focal seizure disorder - Keppra 7. Occipital condylar fracture and multiple orthopedic injuries SOCIAL HISTORY: . Lives in [place]. Neurologist: Dr. Yoandy Keenan. Prior medical records reviewed including admission 12/15/17 for right-sided weakness and complex migraine. VITAL SIGNS: Reviewed by me GENERAL: Well-developed, well-nourished, right side tonic with hyperflexion of right arm, in no respiratory distress. HEENT: Atraumatic. Eyes: No icterus, left conjunctiva is injected. Proptosis left eye. Mouth: moist mucous membranes. No erythema or lesions. Neck: supple with no adenopathy. LUNGS: Clear to auscultation bilaterally, no wheezes, rhonchi or rales. CARDIAC: Regular rate and rhythm, no rubs, murmurs or gallops. ABDOMEN: Soft, nontender, nondistended, bowel sounds normal. BACK: No CVA tenderness. EXTREMITIES: No trauma. No edema. Range of motion is normal throughout. NEURO: Nonverbal, following commands. Contraction in right upper extremity, stiff in right lower extremity, left lower extremity with slight weakness, left upper extremity slightly weak. Possible left gaze preference. SKIN: Warm and dry, no rash. PSYCHIATRIC: Normal mentation, no agitation. Portions of this note were transcribed by a medical receptionist. I personally performed a history, physical exam, medical decision making, and confirmed accuracy of information the transcribed note. ED Course: This is a 62 y/o female with a complex neurologic history including hemorrhagic CVA with right-sided deficits and complex migraines mimicking stroke who presents with increasing lethargy and AMS this morning. She was last seen at baseline by her about 13.5 hours ago. She is nonverbal, but able follow some commands, has right-sided tonus, and baseline strength in her left extremities. Plan for IV, labs, EKG, and stat head CT. The 12 lead EKG was interpreted by myself. Sinus rhythm rate 60. See hard copy and/or "tracemaster" electronic copy for interpretation. Patient received Ativan as to the possible tonic seizure activity. Head CT is stable from previous; specifically no hemorrhage. Neurology paged. Long conversation held between myself and the . describes that the right side is typically week and has typical increased tone but not as stiff as today. In addition, the patient is typically verbal and in fact had gone to see a manager universal several days ago for concerns regarding glucose. On my examination is the significant change. Neurology was paged again. I believe the patient needs an EEG with potential continuous EEG monitoring. 1430: Consulted with Dr. Montalvo, neurology. He will evaluate patient in the ED. Dr. Montalvo recommends transfer to [facility] for ongoing evaluation and potential continuous EEG monitoring. This was discussed with [facility]. Patient will be transferred to the neuro ICU at [facility], accepting physician Dr. Yan. Patient received 1 g of Keppra prior to transfer. 4:45 p.m.: We are continuing to await ambulance arrival for transfer. Due to weather conditions transfer has been delayed. MDM: After the history was obtained and physical exam performed, the following differential for the patient's presenting complaint was considered included but was not limited to hypoglycemia, electrolyte disturbances, intracranial hemorrhage, seizure, status epilepticus, tumor, stroke, or TIA. - Data Points Imaging Results: Imaging Impressions Head CT 01/04/18 12:08 Impression: Stable x3 weeks. Message was left for Dr. Marr at 1:16 PM General information for patients regarding this examination can be found at [email or web address]. If you have questions or comments about this report, please contact me at (hospital) or [phone] ([facility]). Chest X-Ray 01/04/18 13:31 Impression: Diminished lung volumes, otherwise negative. Imaging: Discussed imaging studies w/ call center dispatcher Radiologist, I viewed and interpreted images myself Laboratory Results: Laboratory Results 01/04/18 11:59 01/04/18 11:59 01/04/18 01/04/18 01/04/18 14:37 11:59 11:59 WBC RBC Hgb Hct MCV MCH MCHC RDW Plt Count MPV Neut % (Auto) Lymph % (Auto) [place]he % (Auto) Eos % (Auto) Baso % (Auto) Nucleat RBC Rel Count Absolute Neuts (auto) Absolute Lymphs (auto) Absolute Monos (auto) Absolute Eos (auto) Absolute Basos (auto) Absolute Nucleated RBC Immature Gran % Immature Gran # Sodium 140 mEq/L mEq/L (135-145) Potassium 4.6 mEq/L mEq/L (3.5-5.2) Chloride 102 mEq/L mEq/L (97-110) Carbon Dioxide 27 mEq/l mEq/l (22-31) Anion Gap 11 mEq/L mEq/L (8-16) BUN 26 mg/dL H mg/dL (7-23) Creatinine 0.8 mg/dL mg/dL (0.6-1.0) Estimated GFR > 60 Glucose 83 mg/dL mg/dL (70-100) Calcium 10.1 mg/dL mg/dL (8.5-10.4) Troponin I < 0.012 ng/mL ng/mL (0.000-0.034) Urine Color YELLOW Urine Appearance HAZY Urine pH 6.0 (5.0-7.5) Ur Specific [place] 1.014 (1.002-1.030) Urine Protein NEGATIVE (NEGATIVE) Urine Ketones NEGATIVE (NEGATIVE) Urine Blood NEGATIVE (NEGATIVE) Urine Nitrate NEGATIVE (NEGATIVE) Urine Bilirubin NEGATIVE (NEGATIVE) Urine Urobilinogen NEGATIVE EU EU (0.2-1.0) Ur Leukocyte Esterase NEGATIVE (NEGATIVE) Urine RBC 1-3 /hpf /hpf (0-3) Urine WBC 1-3 /hpf /hpf (0-3) Ur Epithelial Cells NONE SEEN /lpf /lpf (NONE-1+) Urine Mucus TRACE /lpf /lpf (NONE-1+) Urine Glucose NEGATIVE (NEGATIVE) 01/04/18 11:59 WBC 2.96 10^3/uL L 10^3/uL (3.80-9.50) RBC 4.70 10^6/uL 10^6/uL (4.18-5.33) Hgb 14.9 g/dL g/dL (12.6-16.3) Hct 43.8 % % (38.0-47.0) MCV 93.2 fL fL (81.5-99.8) MCH 31.7 pg pg (27.9-34.1) MCHC 34.0 g/dL g/dL (32.4-36.7) RDW 13.0 % % (11.5-15.2) Plt Count 233 10^3/uL 10^3/uL (150-400) MPV 9.5 fL fL (8.7-11.7) Neut % (Auto) 56.8 % % (39.3-74.2) Lymph % (Auto) 31.4 % % (15.0-45.0) Ashe % (Auto) 10.1 % % (4.5-13.0) Eos % (Auto) 1.0 % % (0.6-7.6) Baso % (Auto) 0.7 % % (0.3-1.7) Nucleat RBC Rel Count 0.0 % % (0.0-0.2) Absolute Neuts (auto) 1.68 10^3/uL L 10^3/uL (1.70-6.50) Absolute Lymphs (auto) 0.93 10^3/uL L 10^3/uL (1.00-3.00) Absolute Monos (auto) 0.30 10^3/uL 10^3/uL (0.30-0.80) Absolute Eos (auto) 0.03 10^3/uL 10^3/uL (0.03-0.40) Absolute Basos (auto) 0.02 10^3/uL 10^3/uL (0.02-0.10) Absolute Nucleated RBC 0.00 10^3/uL 10^3/uL (0-0.01) Immature Gran % 0.0 % % (0.0-1.1) Immature Gran # 0.00 10^3/uL 10^3/uL (0.00-0.10) Sodium Potassium Chloride Carbon Dioxide Anion Gap BUN Creatinine Estimated GFR Glucose Calcium Troponin I Urine Color Urine Appearance Urine pH Ur Specific [place] Urine Protein Urine Ketones Urine Blood Urine Nitrate Urine Bilirubin Urine Urobilinogen Ur Leukocyte Esterase Urine RBC Urine WBC Ur Epithelial Cells Urine Mucus Urine Glucose Medications Given: Discontinued Medications Levetiracetam (Keppra (Premix)) 100 mls @ 400 mls/hr IV EDNOW ONE Stop: 01/04/18 15:38 Last Admin: 01/04/18 15:53 Dose: 100 mls Lorazepam (Ativan Injection) 1 mg IVP EDNOW ONE Stop: 01/04/18 12:28 Last Admin: 01/04/18 12:31 Dose: 1 mg Lorazepam (Ativan Injection) 1 mg IVP EDNOW ONE Stop: 01/04/18 13:31 Last Admin: 01/04/18 13:38 Dose: 1 mg General Initial Vital Signs: Initial Vital Signs Temperature (C) 36.5 C 01/04/18 11:59 Heart Rate 64 01/04/18 11:59 Respiratory Rate 12 01/04/18 11:59 Blood Pressure 127/80 H 01/04/18 11:59 O2 Sat (%) 96 01/04/18 11:59 O2 Delivery Mode Room Air O2 (L/minute) 2 Allergies/Adverse Reactions: No Allergies [NKA] Allergy (Verified 12/15/17 09:07) No Allergies Allergy (Unknown, Uncoded 12/17/17 15:28) Home Medications: Medication Instructions Recorded Sertraline HCl [Zoloft 50mg (*)] 50 mg PO DAILY #30 tab 01/05/15 Baclofen [Baclofen 10 mg (*)] 15 mg PO BID@08,16 02/01/16 Baclofen [Baclofen 10 mg (*)] 20 mg PO HS 02/01/16 Carbidopa/Levodopa 25/100Mg 1 tab PO BID@09,21 02/01/16 [Sinemet 25/100 MG (*)] Carbidopa/Levodopa 0.5 tab PO DAILY@16 02/01/16 [Carbidopa-Levodopa 25-100 Tab] levETIRAcetam [Keppra 500 mg (*)] 1,000 mg PO DAILY 02/01/16 levETIRAcetam [Keppra 500 mg (*)] 500 mg PO HS 02/01/16 Departure - Departure Disposition: [facility] Clinical Impression: Left arm weakness, potential status epilepticus Altered mental status Qualifiers: Altered mental status type: unspecified Qualified Code(s): R41.82 - Altered mental status, unspecified Condition: Fair Referrals: Lisa Lee MD [Primary Care Provider] - As per Instructions Report Scribed for: Fátima Marr Report Scribed by: Naa Christianson Date of Report: 01/04/18 Time of Report: 12:14
--- NOTE | 2018-01-04 12:23 | CPEKG ---
Heart Rate: 60 RR Interval: 1000 P-R Interval: 184 QRSD Interval: 98 QT Interval: 440 QTC Interval: 440 P Swink: 9 QRS Swink: -23 T Wave Swink: 69 EKG Severity - OTHERWISE NORMAL ECG - EKG Impression: SINUS RHYTHM EKG Impression: BORDERLINE LEFT AXIS DEVIATION Electronically Signed By: Fátima Marr 04-Jan-2018 17:19:13
[2018-01-04] MEDS ORDERED: LORazepam 2 MG/ML INJ IVP ONE ×2 (12:27→13:30)
[2018-01-04] MEDS ORDERED: levETIRAcetam 1000MG/NACL 100 ML IV ONE (15:24)
[2018-01-04 16:00] VITALS: TEMP 96.8
--- NOTE | 2018-01-04 16:28 | GCON ---
[f rep st] CONSULTATION REFERRING PHYSICIAN: Fátima Marr MD CHIEF COMPLAINT: Acute mental status change with hypermotor activity. HISTORY OF PRESENT ILLNESS: The patient is a very pleasant 62-year-old lady who has had an unfortunate history of multiple meningiomas necessitating resection and radiation with complications of hemorrhagic stroke, symptomatic migraines, and focal seizures potentially. The patient had been in her normal state yesterday in which she was awake and alert, ambulatory with a gait aid and verbal, when she had a sudden change in mental status last night at around 10:30, and it has worsened over the last 12- 15 hours with progressive unresponsiveness and increased right-sided motor activity with unusual eye movements, according to the team. PAST MEDICAL, SOCIAL HISTORY, FAMILY HISTORY, HOME MEDICATIONS: Please see the emergency department note. The patient is on Keppra 1000 mg twice daily at baseline. PHYSICAL EXAMINATION: VITAL SIGNS: She is vitally stable with a blood pressure 127/80, O2 saturations at 96%, temperature 36.5. GENERAL: The patient is unresponsive in terms of higher mental function. EYES: Closed, and she does not respond to voice, tactile stimulation or pain. When I retracted her eyelids she has intermittent nystagmoid eye movements, both to the left and right. She has severe spasticity or tonic type activity in the right leg and right arm. I was unable to passively relax her flexed arm and extend the right lower extremity. According to her , this is significantly a change in baseline. She does have baseline right-sided weakness with spasticity, but it is much less significant than the increased tone present today. She did not have any generalized convulsions in my presence. IMPRESSION AND PLAN: 1. Multiple meningiomas, previous resections. 2. Previous hemorrhagic infarct. 3. Symptomatic migraines. 4. Symptomatic seizures. This patient has had a sudden change in mental status characterized by lack of responsiveness and increased motor activity on the right side, manifested by increased tone. She also has some intermittent nystagmoid eye movements visible with retraction of the eyelids. She has been given benzodiazepine without response in the emergency department. The differential diagnosis includes nonconvulsive status epilepticus, some type of catatonic/freezing episode in the setting of vascular parkinsonism or other encephalopathy. I discussed the differential diagnosis at length with the patient's and the emergency department staff. Essentially, I recommend transfer to higher level care for continuous EEG monitoring to exclude ongoing nonconvulsive status epilepticus. The patient's and emergency department team are in agreement with the plan. We contacted [facility], and they requested we give her an additional loading dose of Keppra 1 g intravenously. This has been ordered and transfer is being arranged now. We will look forward to getting her records from [facility], as her outpatient provider is Dr. Keenan. He is aware that she came into the emergency department today. Thank you for this consultation. TIME: 60 total minutes of critical care time in the emergency department, acutely evaluating the patient and possible nonconvulsive status epilepticus, participating in treatment decisions, and coordination of care. /[id number]/MODL MTDD
--- NOTE | 2018-01-04 16:38 | GHP ---
[f rep st] HISTORY AND PHYSICAL DATE OF ADMISSION: 01/04/2018 CHIEF COMPLAINT: Unresponsiveness. HISTORY OF PRESENT ILLNESS: The patient is a 62-year-old female with a history of meningioma status post multiple attempts at resection as well as prior hemorrhagic stroke and history of seizures, who presents to the emergency department with her from home when he found her in a lethargic, non responsive state. She was admitted 3 weeks ago with a similar presentation, though her unresponsiven ess seems more dense in presentation today. During her last hospitalization it was thought she may b e having a complex migraine with right hemiplegia. She does have a chronic right hemiplegia related to her meningioma and prior hemorrhagic stroke. He states she normally ambulates with a walker and m inimal assist and talks and eats independently. She had a brief episode of unresponsiveness yesterda y which resolved. However, this morning he was unable to awaken her and she was brought to the emerg ency department. In the ER she was found to have increased flexion contractures of her right upper e xtremity, which is worse from her baseline which is more flaccid. She had previously not complained of any headaches, vision changes, nausea, vomiting, diarrhea, chest pain, shortness of breath, or abd ominal pain. In the emergency department there was concern for seizure and she was given 2 doses of 1 mg IV Ativan with no change in her status. Neurology consult was obtained due to concern for statu s epilepticus. Ultimately, it is decided she will transfer to [facility] for continuous EEG mo nitoring. PAST MEDICAL HISTORY: 1. History of meningioma, status post multiple attempts at resection. 2. History of hemorrhagic stroke with right-sided hemiplegia in 2013. 3. History of seizure. 4. Complex migraines. 5. Chronic spasticity with gait instability. 6. History of occipital condylar fracture. 7. Multiple orthopedic injuries. MEDICATIONS: Please see [facility] for completed outpatient medication list. ALLERGIES: She has no known drug allergies. SOCIAL HISTORY: Patient lives independently with her . She has home health services. There is no history of tobacco or alcohol use. FAMILY HISTORY: Reviewed and noncontributory. REVIEW OF SYSTEMS: A 10-point review of systems was performed and is negative as per HPI. OBJECTIVE: VITAL SIGNS: Temperature is 36.7, blood pressure 123/88, heart rate 59, respiratory rate 16, she is 95% on room air. GENERAL: The patient is unresponsive, though awakens to painful stimul i with firm sternal rub. HEENT: Head is atraumatic, normocephalic. Pupils are 3 mm and reactive. S he does not track. I note intermittent medial right eye gaze deviation. NECK: Supple. There is no JVD. HEART: Regular rate and rhythm. LUNGS: Clear to auscultation bilaterally. ABDOMEN: Soft, nondistended, nontender. Normoactive bowel sounds. EXTREMITIES: Without cyanosis, clubbing, or gerson a. NEUROLOGIC: Her right upper extremity is in a severe flexed contracture with no movement of her right lower extremity. She is unresponsive with gaze deviation as described above. LABORATORY DATA: 1. CBC reveals a white blood cell count of 2.96, is otherwise normal. Basic metabolic panel shows n ormal electrolytes. BUN slightly elevated at 26, creatinine 0.8. Troponin is negative. Urinalysis is negative. 2. CT of the brain shows encephalomalacia in the left hemisphere and bilateral posterior parietal lo be with stable left frontal meningioma. Overall, this is stable from her recent imaging 3 weeks ago. 3. Chest x-ray shows diminished lung volumes, otherwise clear. ASSESSMENT AND PLAN: The patient is a 62-year-old female with history of meningioma, a previous hemo rrhagic stroke and prior seizure presents to the emergency department in an unresponsive state with c oncern for subclinical status epilepticus. 1. Unresponsiveness. I discussed the case with Neurology. There is concern she may be in subclinic al status. She is loaded with Keppra. The emergency department is arranging for her to transfer to [facility] for continuing EEG monitoring and further management at their direction. /[id number]/MODL
[2018-01-04 18:21] VITALS: BP 129/88; PULSE 63; RESP 20; O2SAT 97
== END 2018-01-04 18:21 | disposition short-term general hospital (02) ==
LOC: EDUNIT# → UNDOADMIN 14:41
DX: R41.82 Altered mental status, unspecified (principal); G40.901 Epilepsy, unspecified, not intractable, with status epilepticus; M62.81 Muscle weakness (generalized); Z86.73 Personal history of transient ischemic attack (TIA), and cerebral infarction without residual deficits
CPT/HCPCS: 96365; J1953; J2060

== ENCOUNTER 2018-01-08 14:41 | Inpatient (IN) | payer OTHER ==
[2018-01-08] MEDS ORDERED: POLYETHYLENE GLYCOL 3350 17 GM PKT PO PRN (16:50)
[2018-01-08] MEDS ORDERED: BISACODYL 10 MG SUPP PR PRN (16:51)
--- NOTE | 2018-01-08 17:46 | GHP ---
[f rep st] HISTORY AND PHYSICAL POST ADMISSION PHYSICIAN EVALUATION AND REHABILITATION TREATMENT PLAN DATE OF ADMISSION: 01/08/2018 DATE OF EVALUATION: 01/08/2018. TIME OF EVALUATION: 1610. REFERRING FACILITY: [facility]. REFERRING PHYSICIAN: Dr. Sahni IMPAIRMENT GROUP: 3.9. DATE OF ONSET: 01/04/2018. CONSULTING PHYSICIAN: She was in the ICU and she was seen by Neurology. REHABILITATION DIAGNOSIS: Debility, status post nonconvulsive status epilepticus. ETIOLOGIC DIAGNOSIS: Other neurologic conditions. HISTORY OF PRESENT ILLNESS: This patient has had several weeks of declining function with intermittent altered mental status. She was seen in the emergency department at [facility] on 01/04/2018, and there was strong suspicion for nonconvulsive status epilepticus or recurrent subclinical seizures, so she was sent to [facility] for continuous EEG monitoring. Her levetiracetam was also increased. She had 2 days of continuous EEG monitoring, and no epileptiform activity was noted. However, her clinical history was consistent with recurrent, subclinical, nonconvulsive seizures, and it was thought that these were not detected due to the increase in her levetiracetam. She was otherwise medically stable and appropriate for admission to inpatient rehabilitation. One of her recent neurologic changes that prompted presentation was increased spasticity and contractures of the right upper extremity, and so her baclofen dose was increased while she was at [facility] ([place], [place]) as well. STUDIES AND LABS: She had MR imaging. I do not have the report, but there was no stroke and no other new neurologic abnormalities. She had lab studies with CBCs and basic metabolic profile drawn several times with no significant abnormalities other than developing mild anemia during her stay. PRECAUTIONS: She is a fall risk. She has aspiration precautions. She has seizure precautions. ACTIVE COMORBIDITIES: She has no active tier 1, tier 2 or tier 3 comorbidities. PAST MEDICAL HISTORY: 1. Recurrent meningiomas. 2. Hemorrhagic stroke October 2013 with right-sided deficits. 3. 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 4. Multiple TIAs and complex migraines in the past. 5. Seizure disorder. 6. Occipital condylar fracture. 7. Multiple orthopedic injuries. PAST SURGICAL HISTORY: 1. She has had 4 meningioma resections as well as radiation. 2. Subsequent left eye orbital reconstruction. 3. Multiple orthopedic surgeries. PRE-HOSPITAL MEDICATIONS: 1. Sertraline 15 mg p.o. q. day. 2. Baclofen 15 mg p.o. b.i.d. and 20 mg p.o. q.h.s. 3. Sinemet 25/100 one tablet p.o. b.i.d. 4. Sinemet 25/100, 1/2 tablet p.o. q. day at 4 p.m. 5. Levetiracetam 1500 mg p.o. q. day and 500 mg p.o. q.h.s. Admission medications: 1. Baclofen 25 mg p.o. b.i.d. and 20 mg q. day at noon. 2. Sinemet 25/100 one tablet p.o. b.i.d. 3. Levetiracetam 1500 mg p.o. b.i.d. 4. Sertraline 50 mg p.o. q. day. ALLERGIES: There are no known drug allergies. PSYCHOSOCIAL HISTORY: She is . She lives with her . She is disabled. She is a nonsmoker and nondrinker. FAMILY HISTORY: Noncontributory. REVIEW OF SYSTEMS: Limited. She denies pain. She has fatigue after her drive with her from [facility] to [place]. She needed assistance of her and nurses to get into his car and to get out of his car at the [place] end. She is not in pain. She sleeps well, and otherwise to the extent that it could be conducted a 10-point review of systems was negative. PHYSICAL EXAMINATION: VITAL SIGNS: Not yet available in the chart. GENERAL: This is an overweight-appearing woman, dressed in street clothes, lying in bed, alert, cooperative, and in no acute distress. HEENT: She has mild proptosis of the right eye. Extraocular movements are intact. Her right pupil is somewhat larger than her left pupil. Both pupils are round and reactive to light. Mucous membranes are moist. Dentition is in good condition. She has an uncrowded airway, Mallampati class 2. NECK: Supple. HEART: There is a regular rate and rhythm with no murmurs, rubs, or gallops. LUNGS: Clear to auscultation bilaterally. ABDOMEN: Soft, nontender, nondistended with normoactive bowel sounds, and no hepatosplenomegaly. EXTREMITIES: There is no cyanosis, clubbing, or edema. There is a well-healed surgical scar on the right medial foot. Radial and dorsalis pedis pulses are 2+ bilaterally. NEUROLOGIC: She is alert. Orientation was not checked. She can follow simple commands. She is unable to answer open-ended questions. She can initiate an answer, but loses track before she completes a sentence. Cranial nerves 2-12 are grossly intact. She has good strength in the left upper extremity and bilaterally in the lower extremities. She has flexion contractures of the right upper extremity. She is able to lift her arm against gravity. She is able to extend and contract at the right elbow. There is a flexion contracture of the right wrist and the right fingers. Plantar reflexes are upgoing on the left and downgoing on the right. Deep tendon reflexes are 2+ bilaterally at the biceps, patella, and left Achilles tendon, and plantar reflex is absent at the right Achilles tendon. Sensation is intact to light touch. CURRENT LEVEL OF FUNCTION: Per the pre-admission screen. Regarding diet, feeding, and swallowing, she was on a regular texture with thin liquids. She required supervision and head of bed at 90 degrees, and she had aspiration precautions. Grooming required maximal assistance. Bathing required maximal assistance. Dressing required maximal assistance. She was dependent for toileting. Bed mobility required moderate assistance, though today she can arise to seated from supine independently, though she was not asked to swing her legs over the bed and sit up on the edge of the bed. [id number] required moderate assistance, and [id number] required maximal assistance. For transfers she needed assistance. Her endurance was poor. Regarding gait, she needed assistance. There are no significant changes in her current level of function from the pre- admission screen. IMPRESSION: This is a 62-year-old woman with a complex neurologic history, including meningioma surgeries x4 and radiation, need for orbital reconstruction , a hemorrhagic stroke in 2013 with right-sided deficits, seizure disorder with likely recent subclinical seizures versus nonconvulsive status epilepticus, and history of transient ischemic attacks and migraines that mimic seizures. She had an acute decline in her level of function related to these seizures. Her levetiracetam has been increased. She additionally has developed flexion contractures for which baclofen has been increased. At baseline, she was able to ambulate with assistance with a front-wheeled walker and a gait belt, and was home with a caregiver while her worked. She is appropriate for inpatient rehabilitation with a goal of achieving minimal assist to contact guard level with functional needs. She will need to be seizure free. A new medication management regimen may need to be established, and there will be education for the patient and her . Her goal is to go home with her and home health care as well as private pay assistance. She will have therapy with physical therapy, occupational therapy, and speech and language pathology for 60 minutes per day for each discipline on 5-7 days of the week. Her expected duration of stay is 12 days. It is anticipated that upon discharge she will continue to benefit from home health services, including speech and language pathology, occupational therapy, and physical therapy. PLAN: 1. Debility, status post nonconvulsive status epilepticus versus subclinical seizures with new flexion contractures. PT and OT to optimize mobility and activities of daily living towards home at the minimal assist to contact guard assist level. 2. Aspiration risk and cognitive impairment to be assessed and treated per Speech and Language Pathology. 3. Flexion contractures with increased dose of baclofen. She will be evaluated regarding whether these contractures interfere with her mobility and activities of daily living, and she will have specific attention by PT and OT. If she has spasticity that interferes, consideration will be given to increasing her dose of baclofen. 4. Movement disorder consistent with parkinsonism. reports that she has been evaluated at the Movement Disorder Clinic at [facility] in [place], and there she was started on Sinemet. Sinemet will be continued, and her gait and movements will be evaluated further regarding whether dose needs to be adjusted. 5. History of depression. Continue sertraline. 6. DVT prophylaxis. Given her immobility, she will be treated with prophylactic dose of enoxaparin. As her mobility improves, it is hoped that the enoxaparin can be discontinued. /[id number]/MODL MTDD
--- NOTE | 2018-01-08 17:57 | PDOREHIP ---
Admission [facility] - Admission - 3 Day Assessment Period Admission Date/Day 1: 01/08/18 Day 2: 01/09/18 Day 3: 01/10/18 - Active Diagnoses Comorbidities and Co-existing Conditions at Admission: 57477. None of the Above - Skin Conditions Unhealed Pressure Ulcer (1 or more/Stage 1 or >)-Admission: 1. Yes # Unstageable Pressure Ulcers (Deep Tissue Injury)-Admission: 1 (Left heel)
[2018-01-08] MEDS: BACLOFEN 10 MG TAB PO SCH (20:44)
[2018-01-08] MEDS: levETIRAcetam 500 MG TAB PO SCH (20:45)
[2018-01-08] MEDS: ACETAMINOPHEN 325 MG TAB PO PRN (21:30)
[2018-01-08] MEDS ORDERED: CARBIDOPA/LEVODOPA 25 MG/100 MG TAB PO ONE (22:00)
[2018-01-08] MEDS: CARBIDOPA/LEVODOPA 25 MG/100 MG TAB PO SCH (22:15)
[2018-01-09] MEDS: levETIRAcetam 500 MG TAB PO SCH ×2 (09:03→20:29)
[2018-01-09] MEDS: ENOXAPARIN 40 MG/0.4 ML SYR SC SCH (09:04)
[2018-01-09] MEDS: SERTRALINE HCL 50 MG TAB PO SCH (09:04)
[2018-01-09] MEDS: CARBIDOPA/LEVODOPA 25 MG/100 MG TAB PO SCH ×2 (09:04→20:29)
[2018-01-09] MEDS: BACLOFEN 10 MG TAB PO SCH ×3 (09:11→20:29)
--- NOTE | 2018-01-09 11:03 | SOAPPROG ---
SOAP Progress Note Assessment/Plan: A/P: Ms. Alamo is a 62 y/o female admitted to the acute rehab floor for worsening weakness. 1. Debility, status post nonconvulsive status epilepticus versus subclinical seizures with new flexion contractures. PT and OT to optimize mobility and activities of daily living towards home at the minimal assist to contact guard assist level. 2. Aspiration risk and cognitive impairment to be assessed and treated per Speech and Language Pathology. 3. Flexion contractures with increased dose of baclofen. She will be evaluated regarding whether these contractures interfere with her mobility and activities of daily living, and she will have specific attention by PT and OT. If she has spasticity that interferes, consideration will be given to increasing her dose of baclofen. 4. Movement disorder consistent with parkinsonism. reports that she has been evaluated at the Movement Disorder Clinic at [facility] in [place], and there she was started on Sinemet. Sinemet will be continued, and her gait and movements will be evaluated further regarding whether dose needs to be adjusted. 5. History of depression. Continue sertraline. 6. DVT prophylaxis. Given her immobility, she will be treated with prophylactic dose of enoxaparin. As her mobility improves, it is hoped that the enoxaparin can be discontinued. Today's Plan Pt will trial taking her full dose of sinemet (25/100) and then monitor the effects. Had said one time when at [facility] it made her a littler "spacey". They have also increased her baclofen. Will trial and if continues to make her a little spacey will trial a decrease of baclofen and monitor tone. Her was providing great support and information. Will place order for PVR's to evaluate her bladder management. Also will add brace order for the right wrist- RN's to watch skin closely . 01/09/18 10:59 Subjective: Feels pretty good this mornign. Feeling happy to be in rehab. present with us in the room. Feeling rested this morning. Having some trouble with voiding/timing urgency. NO fevers/chills reporting that seeing improvement - no new concerns. Objective: Vital Signs Temp Pulse Resp BP Pulse Ox 34.3 C L 50 L 14 121/74 H 93 01/09/18 05:46 01/09/18 05:46 01/09/18 05:46 01/09/18 05:46 01/09/18 05:46 01/08/18 01/09/18 01/10/18 05:59 05:59 05:59 Intake Total 240 Balance 240 Physical Exam - Physical Exam General Appearance: WD/WN, alert Respiratory: lungs clear Cardiac/Chest: other (Regular rythm. Slightly bradycardic) Abdomen: non-tender, soft Neuro/Psych: alert, other (Aphasic- Has tone more affecting the right UE/LE. Some contractures associated) ICD10 Worksheet Patient Problems: Problems Problem Status Onset Concussion injury of brain Active Intracranial meningioma Active Migraine with aura Active Seizure disorder Active flatfoot Active Acute encephalopathy Acute Intracerebral hematoma Acute
[2018-01-09] MEDS: ACETAMINOPHEN 325 MG TAB PO PRN (14:30)
[2018-01-10] MEDS: CARBIDOPA/LEVODOPA 25 MG/100 MG TAB PO SCH ×2 (08:13→20:02)
[2018-01-10] MEDS: SERTRALINE HCL 50 MG TAB PO SCH (08:13)
[2018-01-10] MEDS: BACLOFEN 10 MG TAB PO SCH ×3 (08:13→20:28)
[2018-01-10] MEDS: levETIRAcetam 500 MG TAB PO SCH ×2 (08:13→20:03)
[2018-01-10] MEDS: ENOXAPARIN 40 MG/0.4 ML SYR SC SCH (08:14)
--- NOTE | 2018-01-10 10:00 | SOAPPROG ---
KRIS Progress Note Assessment/Plan: A/P: Ms. Alamo is a 62 y/o female admitted to the acute rehab floor for worsening weakness. 1. Debility, status post nonconvulsive status epilepticus versus subclinical seizures with new flexion contractures. PT and OT to optimize mobility and activities of daily living towards home at the minimal assist to contact guard assist level. 2. Aspiration risk and cognitive impairment to be assessed and treated per Speech and Language Pathology. 3. Flexion contractures- Increased dose of baclofen. She will be evaluated regarding whether these contractures interfere with her mobility and activities of daily living, and she will have specific attention by PT and OT. If she has spasticity that interferes, consideration will be given to increasing her dose of baclofen vs more focal support such as botox injections 4. Movement disorder consistent with parkinsonism. reports that she has been evaluated at the Movement Disorder Clinic at [facility] in [place], and there she was started on Sinemet. Sinemet will be continued, and her gait and movements will be evaluated further regarding whether dose needs to be adjusted. 5. History of depression. Continue sertraline. 6. DVT prophylaxis. Given her immobility, she will be treated with prophylactic dose of enoxaparin. As her mobility improves, it is hoped that the enoxaparin can be discontinued. Today's Plan Pt did well with her dosing yesterday of sinemet and recently increased baclofen - didn't feel as "spacey" as had. Would have caution about continual increase of the baclofen. Pt will benefit from focal management with botox in the wrist/finger flexors to help improve motion to be able to use a walker. Have ordered a brace and OT will be managing - Needs to also be assess by PT for a Right foot brace. Slept well 01/10/18 09:57 Subjective: Feels pretty well this morning. Tolerating her medications better now that she has slept well. Still having trouble with the right wrist and the ankle with regards to tone management. improved bladder incontinence Objective: Vital Signs Temp Pulse Resp BP Pulse Ox 34.3 C L 50 L 16 118/76 93 01/09/18 05:46 01/10/18 07:36 01/10/18 07:36 01/10/18 07:36 01/10/18 07:36 01/09/18 01/10/18 01/11/18 05:59 05:59 05:59 Intake Total 1100 Balance 1100 Physical Exam - Physical Exam General Appearance: no apparent distress Respiratory: normal breath sounds Cardiac/Chest: regular rate, rhythm Abdomen: non-tender, soft Neuro/Psych: alert, normal mood/affect ICD10 Worksheet Patient Problems: Problems Problem Status Onset Concussion injury of brain Active Intracranial meningioma Active Migraine with aura Active Seizure disorder Active flatfoot Active Acute encephalopathy Acute Intracerebral hematoma Acute
[2018-01-11] MEDS: ENOXAPARIN 40 MG/0.4 ML SYR SC SCH (09:07)
[2018-01-11] MEDS: levETIRAcetam 500 MG TAB PO SCH ×2 (09:09→20:35)
[2018-01-11] MEDS: CARBIDOPA/LEVODOPA 25 MG/100 MG TAB PO SCH ×2 (09:09→20:35)
[2018-01-11] MEDS: SERTRALINE HCL 50 MG TAB PO SCH (09:10)
--- NOTE | 2018-01-11 09:11 | SOAPPROG ---
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 * Needs 2-person assist for walking. * PT and OT to optimize mobility and activities of daily living towards home at the minimal assist to contact guard assist level. * Aspiration risk and cognitive impairment to be assessed and treated per Speech and Language Pathology. * Flexion contractures with increased dose of baclofen. * Unlikely to benefit from further increase in baclofen. * Continue efforts of PT and OT. * May need Botox injections. * Insomnia. Consider trazodone at HS; consider melatonin; will discuss with . * Urinary incontinence. * Postvoid residual was not significant. * Initiate rehabilitation bladder program with scheduled toileting q.2 hours while awake. * Check UA. * Movement disorder consistent with parkinsonism. reports that she has been evaluated at the Movement Disorder Clinic at [facility] in [place], and there she was started on Sinemet. Sinemet will be continued, and her gait and movements will be evaluated further regarding whether dose needs to be adjusted. * History of depression. Continue sertraline. * DVT prophylaxis. Given her immobility, she will be treated with prophylactic dose of enoxaparin. As her mobility improves, it is hoped that the enoxaparin can be discontinued. 01/11/18 12:39 Subjective: Complains of pain all over. Reports urinary incontinence overnight or this morning. Had poor sleep; reports it is difficult to attain sleep and when she wakens at night it is difficult to retain sleep. Objective: Vital Signs Temp Pulse Resp BP Pulse Ox 36.4 C 51 L 12 120/73 92 01/10/18 20:40 01/11/18 08:00 01/11/18 08:00 01/11/18 08:00 01/11/18 08:00 01/10/18 01/11/18 01/12/18 05:59 05:59 05:59 Intake Total 1100 200 Output Total 125 Balance 1100 75 Physical Exam - Physical Exam General Appearance: WD/WN, alert, no apparent distress Respiratory: normal breath sounds, No crackles, No rhonchi, No wheezing Cardiac/Chest: regular rate, rhythm, No edema Skin: normal color, warm/dry Neuro/Psych: alert, normal mood/affect, aphasia (Limited expansion, word- finding difficulties, unable to respond open-ended questions. Respond consistently to yes or no questions.), motor weakness (Right upper extremity flexion contracture) ICD10 Worksheet Patient Problems: Problems Problem Status Onset Concussion injury of brain Active Intracranial meningioma Active Migraine with aura Active Seizure disorder Active flatfoot Active Acute encephalopathy Acute Intracerebral hematoma Acute
[2018-01-11] MEDS: BACLOFEN 10 MG TAB PO SCH ×3 (09:31→20:36)
[2018-01-11] MEDS ORDERED: CARBOXYMETHYLCELLULOSE 0.5% 0.4 ML DROPERETTE EACHEYE PRN (16:12)
[2018-01-11] MEDS: NITROFURANTOIN MACROBID 100 MG CAP PO SCH (20:35)
[2018-01-11] MEDS ORDERED: MELATONIN 3 MG TAB PO SCH (21:00)
[2018-01-12] MEDS: ENOXAPARIN 40 MG/0.4 ML SYR SC SCH (07:37)
[2018-01-12] MEDS: BACLOFEN 10 MG TAB PO SCH ×3 (08:38→20:36)
[2018-01-12] MEDS: CARBIDOPA/LEVODOPA 25 MG/100 MG TAB PO SCH ×2 (08:39→20:36)
[2018-01-12] MEDS: NITROFURANTOIN MACROBID 100 MG CAP PO SCH ×2 (08:40→20:36)
[2018-01-12] MEDS: SERTRALINE HCL 50 MG TAB PO SCH (08:41)
[2018-01-12] MEDS: levETIRAcetam 500 MG TAB PO SCH ×2 (08:41→20:36)
[2018-01-12] MEDS: CARBOXYMETHYLCELLULOSE 0.5% 0.4 ML DROPERETTE EACHEYE PRN ×2 (10:15→20:37)
--- NOTE | 2018-01-12 13:55 | SOAPPROG ---
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 * Needs 2-person assist for walking; improving. * PT and OT to optimize mobility and activities of daily living towards home at the minimal assist to contact guard assist level. * Aspiration risk and cognitive impairment to be assessed and treated per Speech and Language Pathology. * Flexion contractures with increased dose of baclofen. * Unlikely to benefit from further increase in baclofen. * Continue efforts of PT and OT. * May need Botox injections. * Freezing episodes vs reduced function due to fatigue. Has parkinsonism and was stared on carbidopa/levodopa at the Movement Disorder Clinic at [facility] in [place]. * Add mid-day carbidopa/levodopa 1/2 tab. reports she had a mid-day dose at home. * Insomnia. * Continue PRN melatonin. Advised patient that she needs to ask for it. Husbands impression is that she's sleeping well. * Urinary incontinence. * Postvoid residual was not significant. * Initiate rehabilitation bladder program with scheduled toileting q.2 hours while awake. UTI, likely, with positive UA * Initiated nitrofurantoin 01/11/2018. * Initial culture with 2 colony types E. coli. Await sensitivities. * History of depression. Continue sertraline. * DVT prophylaxis. Given her immobility, she will be treated with prophylactic dose of enoxaparin. As her mobility improves, it is hoped that the enoxaparin can be discontinued. 01/12/18 13:43 Subjective: Burning with urination has resolved. She had difficulty attaining sleep again last night. PT notes episodes of freezing where she is unable to initiate a step. Happened yesterday afternoon and again today in the afternoon. Objective: Vital Signs Temp Pulse Resp BP Pulse Ox 36.4 C 52 L 14 118/77 95 01/12/18 07:45 01/12/18 07:45 01/12/18 07:45 01/12/18 07:45 01/12/18 07:45 0201/12/18 01/13/18 05:59 05:59 05:59 Intake Total 200 600 851 Output Total 125 300 500 Balance 75 300 351 Physical Exam - Physical Exam General Appearance: WD/WN, alert, no apparent distress Respiratory: normal breath sounds, No crackles, No rhonchi, No wheezing Cardiac/Chest: No edema, No diastolic murmur, No systolic murmur Skin: normal color, warm/dry Neuro/Psych: alert, normal mood/affect, abnormal gait (With front wheeled walker and contact guard assist per PT. Right upper extremity spasticity; therapist helps to open hand and place on walker. Has scissoring gait left leg in front of right leg. Gait is slow and ataxic. No tremor.) ICD10 Worksheet Patient Problems: Problems Problem Status Onset Concussion injury of brain Active Intracranial meningioma Active Migraine with aura Active Seizure disorder Active flatfoot Active Acute encephalopathy Acute Intracerebral hematoma Acute
--- NOTE | 2018-01-12 15:05 | WOCRNPDOC ---
WOCRN Advanced Assessment Note - Skin Integrity Problem, Advanced Assess Left Heel Dressing Type: Abdominal Pads Dressing Description: Clean/Dry, Intact Exudate Amount: None Exudate Characteristic(s): None Integumentary Issue Intervention: Visualized Under Dressing Katrina Wound Tissue: Blanching, Intact, Calloused Katrina Wound Swelling: None Wound Bed Color: Red Wound Bed Constitution: Red/[place] - Non Granular Tissue Wound Edges: Epithelizing Site Odor: None Site Measurement - Head-to-Toe Length X Width X Depth (cm): 0.2cmx0.3cmx0.1cm Pressure Injury Stage: Stage 2 Pressure Injury Present on Admit: Yes (Physician notified) Skin Integrity Problem Comment: Pinpoint area of partial-thickness tissue loss noted to L posterior heel, appearance and location consistent w/ stage 2 pressure injury. There is calloused tissue periwound, and the wound may have been deeper at one point. No significant scar tissue observed. Will have nursing continue w/ bordered foam dressing q2 days, and off-loading heel boot at night. Right Heel Dressing Type: [place] Life Dressing Description: Intact Exudate Amount: None Exudate Characteristic(s): None Integumentary Issue Intervention: Visualized Under Dressing Katrina Wound Tissue: Calloused Katrina Wound Swelling: None Skin Integrity Problem Comment: Calloused tissue and loose scab noted over R posterior heel. I lifted the latter and found epithelialized tissue underneath. Potentially a healed pressure injury, though uncertain of staging due to epithelialization. Lack of scar tissue indicative of partial-thickness injury only. Will have nursing continue w/ bordered foam dressing to protect. Patient has AFO brace and contracture boot for this foot; latter does not apply direct pressure over the heel, and poses no problem for ongoing healing/protection of site.
[2018-01-12] MEDS: MELATONIN 3 MG TAB PO PRN (20:36)
[2018-01-13] MEDS: levETIRAcetam 500 MG TAB PO SCH ×2 (08:01→20:42)
[2018-01-13] MEDS: CARBIDOPA/LEVODOPA 25 MG/100 MG TAB PO SCH ×2 (08:02→12:18)
[2018-01-13] MEDS: SERTRALINE HCL 50 MG TAB PO SCH (08:02)
[2018-01-13] MEDS: NITROFURANTOIN MACROBID 100 MG CAP PO SCH ×2 (08:03→20:42)
[2018-01-13] MEDS: BACLOFEN 10 MG TAB PO SCH ×3 (08:03→20:41)
[2018-01-13] MEDS: ENOXAPARIN 40 MG/0.4 ML SYR SC SCH (08:06)
--- NOTE | 2018-01-13 09:49 | SOAPPROG ---
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 * Initial functional independence measure 57. Minimal to moderate assistance required for [id number] transfer. Minimal assist for bed mobility. Ambulated 25 to 40 ft front wheeled walker, right AFO, wheelchair following bed minimal assistance for upper body dressing, moderate assistance for lower body dressing. Bathing required minimal assist, bath transfer required maximal assist. * PT and OT to optimize mobility and activities of daily living towards home at the minimal assist to contact guard assist level. * Cognitive impairment . * Expressive aphasia; able to express needs if given extra time. * Continue Speech and Language Pathology. * right upper extremity spasticity status post increased dose of baclofen. * Unlikely to benefit from further increase in baclofen. * Continue efforts of PT and OT. * May need Botox injections. * Freezing episodes vs reduced function due to fatigue. Has parkinsonism and was stared on carbidopa/levodopa at the [facility] Clinic at [facility] in [place]. * Add mid-day carbidopa/levodopa 1/2 tab. reports she had a mid-day dose at home. * Insomnia. * Slept well after p.r.n. melatonin at [facility] 01/12/2018. * Urinary incontinence. * Postvoid residual was not significant. * Initiate rehabilitation bladder program with scheduled toileting q.2 hours while awake. UTI, likely, with positive UA * Initiated nitrofurantoin 01/11/2018. * Initial culture with 2 colony types E. coli. Continue nitrofurantoin. Not resistant. * Decubitus ulcers on heels. * Continue offloading at night; continue foam dressings. * History of depression. Continue sertraline. * DVT prophylaxis. Given her immobility, she will be treated with prophylactic dose of enoxaparin. As her mobility improves, it is hoped that the enoxaparin can be discontinued. Attended staffing, 15 min. Discussed with case management, dietitian, to, PT, OT, QUALITATIVE RESEARCHER. 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 To 4:30 p.m. 5 days a week; leaves work is 7:30 a.m. And returns at 6. Needs to achieve 1 person minimal to moderate assist level for discharge home. Set discharge date for 01/22/2018. 01/13/18 11:43 01/13/18 11:48 Subjective: Complains of left heel pain. Otherwise without complaints. Sleeping well. Urinary symptoms have resolved. Objective: Vital Signs Temp Pulse Resp BP Pulse Ox 36.6 C 54 L 14 117/79 90 L 01/13/18 08:00 01/13/18 08:00 01/13/18 08:00 01/13/18 08:00 01/12/18 20:00 Microbiology 01/11/18 13:21 Urine Culture - Final Urine,Clean Catch Escherichia Coli Two Rogers Types 01/12/18 01/13/18 01/14/18 05:59 05:59 05:59 Intake Total 600 1201 Output Total 300 1050 400 Balance 300 151 -400 - Time Spent With Patient Time Spent With Patient: Greater than 35 min floor time today, including more than 50% of time in coordination of care during staffing meeting, and counseling patient. Physical Exam - Physical Exam General Appearance: WD/WN, alert, no apparent distress Respiratory: No respiratory distress, No accessory muscle use Skin: normal color, warm/dry, decubitus (Left heel with small stage II ulcer, epithelializing. Right heel with callus, the skin around callus is blanchable.) Neuro/Psych: alert, normal mood/affect, abnormal gait (In hernández working with PT standing at 4 wheeled walker. Able to advance left leg independently; needs cues and some physical assistance to advance right leg.) ICD10 Worksheet Patient Problems: Problems Problem Status Onset Concussion injury of brain Active Intracranial meningioma Active Migraine with aura Active Seizure disorder Active flatfoot Active Acute encephalopathy Acute Intracerebral hematoma Acute
[2018-01-13] MEDS ORDERED: ONDANSETRON DISINTEGRATING 4 MG TAB PO PRN (12:00)
[2018-01-14] MEDS: MELATONIN 3 MG TAB PO PRN (01:08)
[2018-01-14] MEDS: levETIRAcetam 500 MG TAB PO SCH ×2 (08:39→20:40)
[2018-01-14] MEDS: BACLOFEN 10 MG TAB PO SCH ×3 (08:41→20:39)
[2018-01-14] MEDS: NITROFURANTOIN MACROBID 100 MG CAP PO SCH ×2 (08:42→20:40)
[2018-01-14] MEDS: SERTRALINE HCL 50 MG TAB PO SCH (08:42)
[2018-01-14] MEDS: ENOXAPARIN 40 MG/0.4 ML SYR SC SCH (09:08)
[2018-01-14] MEDS: CARBIDOPA/LEVODOPA 25 MG/100 MG TAB PO SCH (12:13)
--- NOTE | 2018-01-14 13:28 | SOAPPROG ---
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 * Initial functional independence measure 57. Minimal to moderate assistance required for [id number] transfer. Minimal assist for bed mobility. Ambulated 25 to 40 ft front wheeled walker, right AFO, wheelchair following bed minimal assistance for upper body dressing, moderate assistance for lower body dressing. Bathing required minimal assist, bath transfer required maximal assist. * PT and OT to optimize mobility and activities of daily living towards home at the minimal assist to contact guard assist level. * Cognitive impairment . * Expressive aphasia; able to express needs if given extra time. * Continue Speech and Language Pathology. * Right upper extremity spasticity status post increased dose of baclofen. * Consider increasing baclofen; currently at 65 mg total per day. * Continue efforts of PT and OT. * May need Botox injections. * Freezing episodes vs reduced function due to fatigue. Has parkinsonism and was staretd on carbidopa/levodopa at the [facility] at [facility] in [place]. * Add mid-day carbidopa/levodopa / tab starting 01/13/2018. reports she had a mid-day dose at home. * Insomnia. * Sleeping well with p.r.n. melatonin. * Urinary incontinence. * Postvoid residual was not significant. * Improved with rehabilitation bladder program with scheduled toileting q.2 hours while awake. UTI, likely, with positive UA * Initiated nitrofurantoin 01/11/2018. * Initial culture with 2 colony types E. coli. Continue nitrofurantoin. Not resistant. * Decubitus ulcers on heels. * Continue offloading at night; continue foam dressings. * History of depression. Continue sertraline. * DVT prophylaxis. Given her immobility, she will be treated with prophylactic dose of enoxaparin. As her mobility improves, it is hoped that the enoxaparin can be discontinued. Has relationship consultant care from 9:00 a.m. To 4:30 p.m. 5 days a week; leaves work is 7:30 a.m. And returns at 6. Needs to achieve 1 person minimal to moderate assist level for discharge home. Set discharge date for 01/22/2018. 01/14/18 13:30 Subjective: No complaints. Sleeping well. She thinks she had more freezing episodes yesterday afternoon even after initiating mid day levodopa/carbidopa. Discussed with therapy staff who did not note freezing episodes yesterday afternoon but physical therapist is concerned about right upper extremity spasticity and tendency to towards lateral truncal flexion. She is able to voluntarily straighten her trunk but then flexion returns with activities. Objective: Vital Signs Temp Pulse Resp BP Pulse Ox 36.6 C 49 L 16 106/65 94 01/13/18 08:00 01/14/18 06:25 01/14/18 06:25 01/14/18 06:25 01/14/18 06:25 Microbiology 01/11/18 13:21 Urine Culture - Final Urine,Clean Catch Escherichia Coli Two Dahlgren Types 01/13/18 01/14/18 01/15/18 05:59 05:59 05:59 Intake Total 1201 250 360 Output Total 1050 400 250 Balance 151 -150 110 Physical Exam - Physical Exam General Appearance: WD/WN, alert, no apparent distress Respiratory: normal breath sounds, No crackles, No rhonchi, No wheezing Cardiac/Chest: regular rate, rhythm, No diastolic murmur, No systolic murmur Skin: normal color, warm/dry Neuro/Psych: alert, normal mood/affect, oriented x 3, motor weakness (Hyper tonicity to right upper extremity flexion and extension at elbow, wrist, fingers. No cogwheeling.) ICD10 Worksheet Patient Problems: Problems Problem Status Onset Concussion injury of brain Active Intracranial meningioma Active Migraine with aura Active Seizure disorder Active flatfoot Active Acute encephalopathy Acute Intracerebral hematoma Acute
[2018-01-14] MEDS: CARBOXYMETHYLCELLULOSE 0.5% 0.4 ML DROPERETTE EACHEYE PRN (15:53)
[2018-01-15] MEDS: MELATONIN 3 MG TAB PO PRN ×2 (01:27→20:27)
[2018-01-15] MEDS: BACLOFEN 10 MG TAB PO SCH ×3 (08:15→20:27)
[2018-01-15] MEDS: NITROFURANTOIN MACROBID 100 MG CAP PO SCH ×2 (08:16→20:27)
[2018-01-15] MEDS: levETIRAcetam 500 MG TAB PO SCH ×2 (08:16→20:27)
[2018-01-15] MEDS: ENOXAPARIN 40 MG/0.4 ML SYR SC SCH (08:17)
[2018-01-15] MEDS: SERTRALINE HCL 50 MG TAB PO SCH (08:17)
[2018-01-15] MEDS: CARBIDOPA/LEVODOPA 25 MG/100 MG TAB PO SCH (11:49)
--- NOTE | 2018-01-15 14:11 | SOAPPROG ---
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 * Initial functional independence measure 57. Minimal to moderate assistance required for [id number] transfer. Minimal assist for bed mobility. Ambulated 25 to 40 ft front wheeled walker, right AFO, wheelchair following bed minimal assistance for upper body dressing, moderate assistance for lower body dressing. Bathing required minimal assist, bath transfer required maximal assist. * PT and OT to optimize mobility and activities of daily living towards home at the minimal assist to contact guard assist level. * Cognitive impairment . * Expressive aphasia; able to express needs if given extra time. * Continue Speech and Language Pathology. * Right upper extremity spasticity status post increased dose of baclofen. * MM WILL CHANGE BACLOFEN TO FOUR TIMES DAILY DOSAGE FOLLOWS 25 MG, 20 MG, 25 MG, 20 MG * Continue efforts of PT and OT. * May need Botox injections. DISCUSSED WITH PATIENT AND HER TODAY THAT BOTOX INJECTIONS TO ADDRESS RIGHT WRIST AND FINGER FLEXOR SPASTICITY MAY BE BEST OPTION * Freezing episodes vs reduced function due to fatigue. Has parkinsonism and was started on carbidopa/levodopa at the Movement Disorder Clinic at [facility] in [place]. * Add mid-day carbidopa/levodopa / tab starting 01/13/2018. reports she had a mid-day dose at home. * Insomnia. * Sleeping well with p.r.n. melatonin. * Urinary incontinence. * Postvoid residual was not significant. * Improved with rehabilitation bladder program with scheduled toileting q.2 hours while awake. * Decubitus ulcers on heels. * Continue offloading at night; continue foam dressings. * History of depression. Continue sertraline. * DVT prophylaxis. Given her immobility, she will be treated with prophylactic dose of enoxaparin. As her mobility improves, it is hoped that the enoxaparin can be discontinued. 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 To 4:30 p.m. 5 days a week; leaves work is 7:30 a.m. And returns at 6. Needs to achieve 1 person minimal to moderate assist level for discharge home. Set discharge date for 01/22/2018. Plan: 01/15/18 14:13 Subjective: HER VERBALIZES SHE HAS DIFFICULTY GRASPING WALKER DUE TO INCREASED RIGHT UPPER EXTREMITY TONE ESPECIALLY INCREASED TONE OF THE RIGHT WRIST AND FINGER FLEXORS. SHE DENIES HEADACHE OR DIPLOPIA. SHE DOES REPORT SOME BLURRED VISION BEHIND THE LEFT EYE. Objective: Vital Signs Temp Pulse Resp BP Pulse Ox 36.6 C 52 L 16 116/71 96 01/13/18 08:00 01/15/18 06:34 01/15/18 06:34 01/15/18 06:34 01/15/18 06:34 01/14/18 01/15/18 01/16/18 05:59 05:59 05:59 Intake Total 250 828 690 Output Total 400 450 Balance -150 378 690 Physical Exam - Physical Exam General Appearance: WD/WN, alert, no apparent distress EENT: other (LEFT EYE SLIGHTLY MORE PROTUBERANT THAN RIGHT. TRACKS ACROSS ALL VISUAL BRAUN. NO NYSTAGMUS.) Neck: supple Respiratory: lungs clear, normal breath sounds Abdomen: non-tender, soft Extremities: No normal range of motion (PRONOUNCED AND RIGHT UPPER EXTREMITY SPASTICITY WITH ELBOW FLEXED 45, PRONOUNCED RIGHT WRIST AND FINGER FLEXION. INCREASED RIGHT LOWER EXTREMITY TONE.) Neuro/Psych: motor weakness, cognition abnormalities, speech abnormalities ICD10 Worksheet Patient Problems: Problems Problem Status Onset Concussion injury of brain Active Intracranial meningioma Active Migraine with aura Active Seizure disorder Active flatfoot Active Acute encephalopathy Acute Intracerebral hematoma Acute
[2018-01-15] MEDS: BACLOFEN 20 MG TAB PO SCH ×2 (15:29→20:27)
[2018-01-16] MEDS: BACLOFEN 20 MG TAB PO SCH ×4 (06:11→20:00)
[2018-01-16] MEDS: SERTRALINE HCL 50 MG TAB PO SCH (08:37)
[2018-01-16] MEDS: NITROFURANTOIN MACROBID 100 MG CAP PO SCH ×2 (08:37→20:00)
[2018-01-16] MEDS: levETIRAcetam 500 MG TAB PO SCH ×2 (08:37→20:00)
[2018-01-16] MEDS: ENOXAPARIN 40 MG/0.4 ML SYR SC SCH (08:38)
[2018-01-16] MEDS ORDERED: MAGNESIUM CITRATE 300 ML BOTTLE PO PRN (11:21)
--- NOTE | 2018-01-16 11:53 | SOAPPROG ---
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 * Initial functional independence measure 57. Minimal to moderate assistance required for [id number] transfer. Minimal assist for bed mobility. Ambulated 25 to 40 ft front wheeled walker, right AFO, wheelchair following bed minimal assistance for upper body dressing, moderate assistance for lower body dressing. Bathing required minimal assist, bath transfer required maximal assist. * PT and OT to optimize mobility and activities of daily living towards home at the minimal assist to contact guard assist level. * Cognitive impairment . * Expressive aphasia; able to express needs if given extra time. * Continue Speech and Language Pathology. * Right upper extremity spasticity status post increased dose of baclofen. * MM WILL CHANGE BACLOFEN TO FOUR TIMES DAILY DOSAGE FOLLOWS 25 MG, 20 MG, 25 MG, 20 MG * Continue efforts of PT and OT. * May need Botox injections. DISCUSSED WITH PATIENT AND HER TODAY THAT BOTOX INJECTIONS TO ADDRESS RIGHT WRIST AND FINGER FLEXOR SPASTICITY MAY BE BEST OPTION * Freezing episodes vs reduced function due to fatigue. Has parkinsonism and was started on carbidopa/levodopa at the Movement Disorder Clinic at [facility] in [place]. * Add mid-day carbidopa/levodopa / tab starting 01/13/2018. reports she had a mid-day dose at home. * Insomnia. * Sleeping well with p.r.n. melatonin. * Urinary incontinence. * Postvoid residual was not significant. * Improved with rehabilitation bladder program with scheduled toileting q.2 hours while awake. * Decubitus ulcers on heels. * Continue offloading at night; continue foam dressings. * History of depression. Continue sertraline. * DVT prophylaxis. Given her immobility, she will be treated with prophylactic dose of enoxaparin. As her mobility improves, it is hoped that the enoxaparin can be discontinued. Has soda drier feeder care from 9:00 a.m. To 4:30 p.m. 5 days a week; leaves work is 7:30 a.m. And returns at 6. Needs to achieve 1 person minimal to moderate assist level for discharge home. Set discharge date for 01/22/2018. Plan: 01/16/18 11:53 Subjective: feeling a little more tired. some dysuria but not like before Objective: Vital Signs Temp Pulse Resp BP Pulse Ox 36.3 C 52 L 15 123/52 H 93 01/16/18 08:00 01/16/18 08:00 01/16/18 08:00 01/16/18 08:00 01/16/18 08:00 01/15/18 01/16/18 01/17/18 05:59 05:59 05:59 Intake Total 828 990 60 Output Total 450 Balance 378 990 60 Physical Exam - Physical Exam General Appearance: WD/WN, alert, no apparent distress Neck: supple Respiratory: lungs clear, No respiratory distress Cardiac/Chest: regular rate, rhythm Abdomen: normal bowel sounds, non-tender, soft Skin: normal color Neuro/Psych: alert, normal mood/affect, oriented x 3 ICD10 Worksheet Patient Problems: Problems Problem Status Onset Concussion injury of brain Active Intracranial meningioma Active Migraine with aura Active Seizure disorder Active flatfoot Active Acute encephalopathy Acute Intracerebral hematoma Acute
[2018-01-16] MEDS: CARBIDOPA/LEVODOPA 25 MG/100 MG TAB PO SCH (12:11)
[2018-01-16] MEDS: BACLOFEN 10 MG TAB PO SCH ×2 (12:12→20:00)
[2018-01-16] MEDS: MELATONIN 3 MG TAB PO PRN (20:00)
[2018-01-17] MEDS: BACLOFEN 20 MG TAB PO SCH ×4 (05:15→20:32)
[2018-01-17] MEDS: NITROFURANTOIN MACROBID 100 MG CAP PO SCH (08:44)
[2018-01-17] MEDS: levETIRAcetam 500 MG TAB PO SCH ×2 (08:44→20:31)
[2018-01-17] MEDS: ENOXAPARIN 40 MG/0.4 ML SYR SC SCH (08:44)
[2018-01-17] MEDS: SERTRALINE HCL 50 MG TAB PO SCH (08:44)
[2018-01-17] MEDS: CARBIDOPA/LEVODOPA 25 MG/100 MG TAB PO SCH (12:39)
[2018-01-17] MEDS: BACLOFEN 10 MG TAB PO SCH ×2 (12:39→20:32)
--- NOTE | 2018-01-17 19:28 | SOAPPROG ---
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 * Initial functional independence measure 57. Minimal to moderate assistance required for [id number]-[id number] transfer. Minimal assist for bed mobility. Ambulated 25 to 40 ft front wheeled walker, right AFO, wheelchair following bed minimal assistance for upper body dressing, moderate assistance for lower body dressing. Bathing required minimal assist, bath transfer required maximal assist. * PT and OT to optimize mobility and activities of daily living towards home at the minimal assist to contact guard assist level. * fatigue * Uncertain cause. Could be medications. No sign of infection * urinary tract infection * Macrobid * Cognitive impairment . * Expressive aphasia; able to express needs if given extra time. * Continue Speech and Language Pathology. * Right upper extremity spasticity status post increased dose of baclofen. * MM WILL CHANGE BACLOFEN TO FOUR TIMES DAILY DOSAGE FOLLOWS 25 MG, 20 MG, 25 MG, 20 MG * Continue efforts of PT and OT. * May need Botox injections. DISCUSSED WITH PATIENT AND HER TODAY THAT BOTOX INJECTIONS TO ADDRESS RIGHT WRIST AND FINGER FLEXOR SPASTICITY MAY BE BEST OPTION * Freezing episodes vs reduced function due to fatigue. Has parkinsonism and was started on carbidopa/levodopa at the Movement Disorder Clinic at [facility] in [place]. * Add mid-day carbidopa/levodopa / tab starting 01/13/2018. reports she had a mid-day dose at home. * Insomnia. * Sleeping well with p.r.n. melatonin. * Urinary incontinence. * Postvoid residual was not significant. * Improved with rehabilitation bladder program with scheduled toileting q.2 hours while awake. * Decubitus ulcers on heels. * Continue offloading at night; continue foam dressings. * History of depression. Continue sertraline. * DVT prophylaxis. Given her immobility, she will be treated with prophylactic dose of enoxaparin. As her mobility improves, it is hoped that the enoxaparin can be discontinued. Has mexican food machine tender care from 9:00 a.m. To 4:30 p.m. 5 days a week; leaves work is 7:30 a.m. And returns at 6. Needs to achieve 1 person minimal to moderate assist level for discharge home. Set discharge date for 01/22/2018. Plan: 01/16/18 11:53 01/17/18 19:27 Subjective: Feeling a little bit better today. Still tired Objective: Vital Signs Temp Pulse Resp BP Pulse Ox 36.5 C 59 L 16 125/72 H 92 01/17/18 06:32 01/17/18 06:32 01/17/18 06:32 01/17/18 06:32 01/17/18 06:32 01/16/18 01/17/18 01/18/18 05:59 05:59 05:59 Intake Total 990 1450 540 Output Total 550 Balance 990 900 540 Physical Exam - Physical Exam General Appearance: WD/WN, alert, no apparent distress Respiratory: lungs clear, normal breath sounds Abdomen: non-tender, soft Skin: warm/dry Neuro/Psych: alert, normal mood/affect ICD10 Worksheet Patient Problems: Problems Problem Status Onset Concussion injury of brain Active Intracranial meningioma Active Migraine with aura Active Seizure disorder Active flatfoot Active Acute encephalopathy Acute Intracerebral hematoma Acute
[2018-01-18] MEDS: BACLOFEN 20 MG TAB PO SCH ×4 (05:40→20:13)
[2018-01-18] MEDS: ENOXAPARIN 40 MG/0.4 ML SYR SC SCH (08:32)
[2018-01-18] MEDS: SERTRALINE HCL 50 MG TAB PO SCH (09:24)
[2018-01-18] MEDS: levETIRAcetam 500 MG TAB PO SCH ×2 (09:24→20:12)
--- NOTE | 2018-01-18 11:39 | SOAPPROG ---
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 * Initial functional independence measure 57. Minimal to moderate assistance required for [id number] transfer. Minimal assist for bed mobility. Ambulated 25 to 40 ft front wheeled walker, right AFO, wheelchair following bed minimal assistance for upper body dressing, moderate assistance for lower body dressing. Bathing required minimal assist, bath transfer required maximal assist. * PT and OT to optimize mobility and activities of daily living towards home at the minimal assist to contact guard assist level. WILL CHECK WITH PHYSICAL THERAPY TO SEE IF PATIENT IS AMBULATING ENOUGH TO DISCONTINUE THE ENOXAPARIN. * Cognitive impairment . INTERMITTENT CONFUSION NOTED YESTERDAY EVENING AND EARLIER THIS MORNING WHICH IS SUBSEQUENTLY CLEARED. HOWEVER, WILL OBTAIN URINE FOR UA AND CASH ROOM CLERK TO RULE OUT URINARY TRACT INFECTION WHICH MAY CAUSE ALTERED MENTAL STATUS. * Expressive aphasia; able to express needs if given extra time. * Continue Speech and Language Pathology. * Right upper extremity spasticity status post increased dose of baclofen. * MM WILL CHANGE BACLOFEN TO FOUR TIMES DAILY DOSAGE FOLLOWS 25 MG, 20 MG, 25 MG, 20 MG * Continue efforts of PT and OT. * May need Botox injections. DISCUSSED WITH PATIENT AND HER TODAY THAT BOTOX INJECTIONS TO ADDRESS RIGHT WRIST AND FINGER FLEXOR SPASTICITY MAY BE BEST OPTION * Freezing episodes vs reduced function due to fatigue. Has parkinsonism and was started on carbidopa/levodopa at the Movement Disorder Clinic at [facility] in [place]. * Add mid-day carbidopa/levodopa /2 tab starting 01/13/2018. reports she had a mid-day dose at home. * Insomnia. * Sleeping well with p.r.n. melatonin. * Urinary incontinence. * Postvoid residual was not significant. * Improved with rehabilitation bladder program with scheduled toileting q.2 hours while awake. * Decubitus ulcers on heels. * Continue offloading at night; continue foam dressings. * History of depression. Continue sertraline. * DVT prophylaxis. Given her immobility, she will be treated with prophylactic dose of enoxaparin. As her mobility improves, it is hoped that the enoxaparin can be discontinued. AGAIN, WE WILL CHECK WITH HER PHYSICAL THERAPIST TO SEE IF SHE IS AMBULATING ENOUGH THAT THE ENOXAPARIN CAN BE DISCONTINUED. 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 To 4:30 p.m. 5 days a week; leaves work is 7:30 a.m. And returns at 6. Needs to achieve 1 person minimal to moderate assist level for discharge home. Set discharge date for 01/22/2018. Plan: 01/15/18 14:13 01/18/18 11:39 Subjective: Nursing report that she was little confused yesterday evening and then again earlier this morning but this has cleared according to the morning nurse. She does not have any complaints of back pain or dysuria. Objective: Vital Signs Temp Pulse Resp BP Pulse Ox 36.3 C 56 L 14 111/68 96 01/18/18 06:15 01/18/18 06:15 01/18/18 06:15 01/18/18 06:15 01/18/18 06:15 01/17/18 01/18/18 01/19/18 05:59 05:59 05:59 Intake Total 1450 840 450 Output Total 550 500 Balance 900 840 -50 Physical Exam - Physical Exam General Appearance: WD/WN, alert, no apparent distress Respiratory: lungs clear, normal breath sounds Cardiac/Chest: No edema Abdomen: non-tender, soft, other (No suprapubic tenderness) Back: No CVA tenderness Skin: normal color, warm/dry Neuro/Psych: alert, cognition abnormalities (Expressive aphasia) ICD10 Worksheet Patient Problems: Problems Problem Status Onset Concussion injury of brain Active Intracranial meningioma Active Migraine with aura Active Seizure disorder Active flatfoot Active Acute encephalopathy Acute Intracerebral hematoma Acute
[2018-01-18] MEDS: CARBIDOPA/LEVODOPA 25 MG/100 MG TAB PO SCH (12:01)
[2018-01-18] MEDS: BACLOFEN 10 MG TAB PO SCH ×2 (12:02→20:13)
[2018-01-18 17:59] LABS: PLATELET COUNT 238 10^3/uL (150-400)
[2018-01-18] MEDS: MELATONIN 3 MG TAB PO PRN (20:13)
[2018-01-19] MEDS: BACLOFEN 20 MG TAB PO SCH ×5 (05:58→20:01)
[2018-01-19] MEDS: ENOXAPARIN 40 MG/0.4 ML SYR SC SCH (10:00)
[2018-01-19] MEDS: levETIRAcetam 500 MG TAB PO SCH ×2 (10:00→20:01)
[2018-01-19] MEDS: SERTRALINE HCL 50 MG TAB PO SCH (10:00)
--- NOTE | 2018-01-19 12:02 | SOAPPROG ---
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 * Initial functional independence measure 57. Minimal to moderate assistance required for [id number] transfer. Minimal assist for bed mobility. Ambulated 25 to 40 ft front wheeled walker, right AFO, wheelchair following bed minimal assistance for upper body dressing, moderate assistance for lower body dressing. Bathing required minimal assist, bath transfer required maximal assist. * PT and OT to optimize mobility and activities of daily living towards home at the minimal assist to contact guard assist level. * Cognitive impairment . She had another episode of possible altered mental status where she was difficult to arouse early this morning. Because of at least 2 episodes yesterday where nurses reported that she did not seem her normal self, she was sent to the ER for head CT in further workup. Head CT did not show any acute changes and therefore she was returned back to inpatient rehab. Altered mental status may be due to subclinical seizures. Will check Keppra level. Order placed as lab still has red top available to draw sample. Will also ask pharmacy to review medications to make sure that I have been missed a medication interaction that could cause altered mental status. * Right upper extremity spasticity status post increased dose of baclofen. * On BACLOFEN TO FOUR TIMES DAILY DOSAGE FOLLOWS 25 MG, 20 MG, 25 MG, 20 MG * Continue efforts of PT and OT. * Freezing episodes vs reduced function due to fatigue. Has parkinsonism and was started on carbidopa/levodopa at the [facility] at [facility] in [place]. * Add mid-day carbidopa/levodopa 1/2 tab starting 01/13/2018. reports she had a mid-day dose at home. * Insomnia. * Sleeping well with p.r.n. melatonin. * Urinary incontinence. * Postvoid residual was not significant. * Improved with rehabilitation bladder program with scheduled toileting q.2 hours while awake. * Decubitus ulcers on heels. * Continue offloading at night; continue foam dressings. * History of depression. Continue sertraline. * DVT prophylaxis. Given her immobility, she will be treated with prophylactic dose of enoxaparin. As her mobility improves, it is hoped that the enoxaparin can be discontinued. AGAIN, WE WILL CHECK WITH HER PHYSICAL THERAPIST TO SEE IF SHE IS AMBULATING ENOUGH THAT THE ENOXAPARIN CAN BE DISCONTINUED. 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 To 4:30 p.m. 5 days a week; leaves work is 7:30 a.m. And returns at 6. Needs to achieve 1 person minimal to moderate assist level for discharge home. Set discharge date for 01/22/2018. Plan: 01/15/18 14:13 01/18/18 11:39 01/19/18 12:04 Subjective: Called by nursing at 12:06 a.m. 2 1 this morning with reports that patient was hard to arouse. Therefore decided to send patient by ambulance to [facility] for emergent head CT. Results of head CT and workup were discussed with emergency department physician who stated that there was no evidence of acute bleed or hydrocephalus. The patient had returned back to baseline, according to her who had accompanied her to the emergency department therefore was decided to return patient back to inpatient rehab. On morning rounds, the patient does not verbalize complaints of headache or visual disturbance. When asked, she describes some possible intermittent right upper extremity disassociation, however it is difficult to ascertain whether there is re- relationship between this and episodes where she is less responsive. Objective: Vital Signs Temp Pulse Resp BP Pulse Ox 36.0 C 52 L 16 110/71 96 01/19/18 08:00 01/19/18 08:00 01/19/18 08:00 01/19/18 08:00 01/19/18 08:00 Laboratory Results 01/18/18 16:45 01/18/18 01/19/18 01/20/18 05:59 05:59 05:59 Intake Total 840 1255 Output Total 950 Balance 840 305 Physical Exam - Physical Exam General Appearance: WD/WN, alert, no apparent distress EENT: other (Mild exophthalmos left eye.) Neck: full range of motion, supple Respiratory: lungs clear, normal breath sounds Abdomen: non-tender Skin: normal color, warm/dry Neuro/Psych: oriented x 3, speech abnormalities (Expressive aphasia.), other ( Increased tone right upper extremity unchanged from previous exam) ICD10 Worksheet Patient Problems: Problems Problem Status Onset Concussion injury of brain Active Migraine with aura Active Seizure disorder Active flatfoot Active Acute encephalopathy Acute Altered mental status Acute Intracerebral hematoma Acute Intracranial meningioma Acute
[2018-01-19] MEDS: BACLOFEN 10 MG TAB PO SCH ×2 (12:11→20:01)
[2018-01-19] MEDS: CARBIDOPA/LEVODOPA 25 MG/100 MG TAB PO SCH (12:11)
[2018-01-19] MEDS: MELATONIN 3 MG TAB PO PRN (20:01)
[2018-01-20] MEDS: BACLOFEN 20 MG TAB PO SCH ×4 (05:40→21:20)
[2018-01-20 06:50] VITALS: TEMP 97.3
[2018-01-20] MEDS: SERTRALINE HCL 50 MG TAB PO SCH (08:16)
[2018-01-20] MEDS: ENOXAPARIN 40 MG/0.4 ML SYR SC SCH (08:16)
[2018-01-20] MEDS: levETIRAcetam 500 MG TAB PO SCH ×2 (08:16→21:19)
--- NOTE | 2018-01-20 12:16 | SOAPPROG ---
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 * Initial functional independence measure 57. PHYSICAL THERAPY REPORTS BED MOBILITY MINUTE ASSIST WITH RIGHT LOWER EXTREMITY. INCONSISTENT PERFORMANCE THROUGHOUT DAY. MIN TO MODERATE ASSIST SIT TO STAND WITH FWB W. PATIENT"FREEZES "DURING PIVOT TRANSFERS. SHE IS AMBULATING 15-20 FEET WITH EF WD WM MIN TO MOD ASSIST. ON LEFT LOWER EXTREMITY SCISSORS OVER RIGHT LOWER EXTREMITY AND PATIENT TENDS TO HOLD RIGHT LOWER EXTREMITY IN EXTENSION. OCCUPATIONAL THERAPY REPORTS SUPERVISION WITH ADLS WHEN SEATED AT SINK. UPPER EXTREMITY DRESSING MIN ASSIST LOWER EXTREMITY DRESSING MAX TO MODERATE ASSIST BATHING MID TO MODERATE ASSIST WITH DROPPED DOWN SLIDING BOARD. TOILETING REQUIRES MODERATE ASSIST X1. SHE HAS POSTURAL SCOLIOSIS SECONDARY TO INCREASED TONE. SPEECH THERAPY REPORTS NO CHANGE FROM PREVIOUS ADMISSION AND WITH THERAPIST IS FOCUSING ON HOME PROGRAM. * Cognitive impairment . She had another episode of possible altered mental status where she was difficult to arouse early this morning. Because of at least 2 episodes yesterday where nurses reported that she did not seem her normal self, she was sent to the ER for head CT in further workup. Head CT did not show any acute changes and therefore she was returned back to inpatient rehab. Altered mental status may be due to subclinical seizures. Will check Keppra level. Order placed as lab still has red top available to draw sample. Will also ask pharmacy to review medications to make sure that I have been missed a medication interaction that could cause altered mental status. * Right upper extremity spasticity status post increased dose of baclofen. * On BACLOFEN TO FOUR TIMES DAILY DOSAGE FOLLOWS 25 MG, 20 MG, 25 MG, 20 MG * Continue efforts of PT and OT. * Freezing episodes vs reduced function due to fatigue. Has parkinsonism and was started on carbidopa/levodopa at the [facility] at [facility] in [place]. * Add mid-day carbidopa/levodopa / tab starting 01/13/2018. reports she had a mid-day dose at home. * Insomnia. * Sleeping well with p.r.n. melatonin. * Urinary incontinence. * Postvoid residual was not significant. * Improved with rehabilitation bladder program with scheduled toileting q.2 hours while awake. * SPASTICITY-WILL ASK IF HE IS IN AGREEMENT WITH INCREASING HER NIGHTTIME DOSE OF BACLOFEN TO 20 MG. * Decubitus ulcers on heels. * Continue offloading at night; continue foam dressings. * History of depression. Continue sertraline. * DVT prophylaxis. Given her immobility, she will be treated with prophylactic dose of enoxaparin. 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 To 4:30 p.m. 5 days a week; leaves work is 7:30 a.m. And returns at 6. Needs to achieve 1 person minimal to moderate assist level for discharge home. Set discharge date for 01/22/2018. Plan: 01/15/18 14:13 01/18/18 11:39 01/19/18 12:04 01/20/18 12:16 Subjective: SHE HAS NO COMPLAINTS THIS MORNING. SHE DENIES HEADACHE, RIGHT UPPER OR LOWER EXTREMITY PAIN. NURSING REPORTS EPISODE OF BOWEL INCONTINENCE ON 01/19, BLADDER INCONTINENCE ON 01/17. NO OTHER PROBLEMS REPORTED BY NURSING REHAB STAFF. Objective: Vital Signs Temp Pulse Resp BP Pulse Ox 36.3 C 53 L 16 107/64 94 01/20/18 06:47 01/20/18 06:47 01/20/18 06:47 01/20/18 06:47 01/20/18 06:47 Laboratory Results 01/18/18 16:45 01/19/18 01/20/18 01/21/18 05:59 05:59 05:59 Intake Total 1255 450 Output Total 950 300 Balance 305 150 Physical Exam - Physical Exam General Appearance: WD/WN, alert, no apparent distress Respiratory: lungs clear, normal breath sounds Extremities: No swelling, No Soraida's sign Neuro/Psych: alert, speech abnormalities (EXPRESSIVE APHASIA. INCREASED TONE RIGHT UPPER EXTREMITY PREDOMINANTLY IN WRIST AND FINGER FLEXORS. PASSIVELY SHE CAN BE EXTENDED TO NEUTRAL POSITION WITHOUT MUCH DIFFICULTY. SHE HAS LESS THAN 1 GRADE OF ACTIVE WRIST DORSIFLEXION. SLIGHT INCREASED TONE OF THE RIGHT LOWER EXTREMITY. INCREASED TRUNK TONE RESULTING IN RIGHT LATERAL TRUNK FLEXION.) ICD10 Worksheet Patient Problems: Problems Problem Status Onset Concussion injury of brain Active Migraine with aura Active Seizure disorder Active flatfoot Active Acute encephalopathy Acute Intracerebral hematoma Acute
[2018-01-20] MEDS: CARBIDOPA/LEVODOPA 25 MG/100 MG TAB PO SCH (13:48)
[2018-01-20] MEDS: BACLOFEN 10 MG TAB PO SCH ×2 (13:49→21:20)
[2018-01-20] MEDS: MELATONIN 3 MG TAB PO PRN (21:20)
[2018-01-21] MEDS: BACLOFEN 20 MG TAB PO SCH ×4 (04:56→20:07)
[2018-01-21] MEDS: levETIRAcetam 500 MG TAB PO SCH (08:31)
[2018-01-21] MEDS: SERTRALINE HCL 50 MG TAB PO SCH (08:31)
[2018-01-21] MEDS: ENOXAPARIN 40 MG/0.4 ML SYR SC SCH (10:03)
--- NOTE | 2018-01-21 10:47 | SOAPPROG ---
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 * Initial functional independence measure 57. TEAM MEETING YESTERDAY. PHYSICAL THERAPY REPORTS BED MOBILITY MINUTE ASSIST WITH RIGHT LOWER EXTREMITY. INCONSISTENT PERFORMANCE THROUGHOUT DAY. MIN TO MODERATE ASSIST SIT TO STAND WITH FWB W. PATIENT"FREEZES"DURING PIVOT TRANSFERS. SHE IS AMBULATING 15-20 FEET WITH EF WD WM MIN TO MOD ASSIST. ON LEFT LOWER EXTREMITY SCISSORS OVER RIGHT LOWER EXTREMITY AND PATIENT TENDS TO HOLD RIGHT LOWER EXTREMITY IN EXTENSION. OCCUPATIONAL THERAPY REPORTS SUPERVISION WITH ADLS WHEN SEATED AT SINK. UPPER EXTREMITY DRESSING MIN ASSIST LOWER EXTREMITY DRESSING MAX TO MODERATE ASSIST BATHING MID TO MODERATE ASSIST WITH DROPPED DOWN SLIDING BOARD. TOILETING REQUIRES MODERATE ASSIST X1. SHE HAS POSTURAL SCOLIOSIS SECONDARY TO INCREASED TONE. SPEECH THERAPY REPORTS NO CHANGE FROM PREVIOUS ADMISSION AND WITH THERAPIST IS FOCUSING ON HOME PROGRAM. * Cognitive impairment . KEPPRA LEVEL FROM YESTERDAY 49.5 CONSIDERED HIGH ABOVE 46. THEREFORE WILL HOLD AT LEAST 1 DOSE OF KEPPRA AND WILL DISCUSS WITH PHARMACY THEIR RECOMMENDATION FOR HAVE ANY DOSES NEED TO BE HELD. She had another episode of possible altered mental status where she was difficult to arouse early this morning. Because of at least 2 episodes yesterday where nurses reported that she did not seem her normal self, she was sent to the ER for head CT in further workup. Head CT did not show any acute changes and therefore she was returned back to inpatient rehab. Altered mental status may be due to subclinical seizures. Will check Keppra level. Order placed as lab still has red top available to draw sample. Will also ask pharmacy to review medications to make sure that I have been missed a medication interaction that could cause altered mental status. * Right upper extremity spasticity status post increased dose of baclofen. * On BACLOFEN TO FOUR TIMES DAILY DOSAGE FOLLOWS 25 MG, 20 MG, 25 MG, 20 MG * Continue efforts of PT and OT. * Freezing episodes vs reduced function due to fatigue. Has parkinsonism and was started on carbidopa/levodopa at the [facility] at [facility] in [place]. * Add mid-day carbidopa/levodopa / tab starting 01/13/2018. reports she had a mid-day dose at home. * Insomnia. * Sleeping well with p.r.n. melatonin. * Urinary incontinence. * Postvoid residual was not significant. * Improved with rehabilitation bladder program with scheduled toileting q.2 hours while awake. * SPASTICITY-WILL ASK IF HE IS IN AGREEMENT WITH INCREASING HER NIGHTTIME DOSE OF BACLOFEN TO 20 MG. * Decubitus ulcers on heels. * Continue offloading at night; continue foam dressings. * History of depression. Continue sertraline. * DVT prophylaxis. Given her immobility, she will be treated with prophylactic dose of enoxaparin. MOST LIKELY WILL NOT BE DISCHARGED WITH ENOXAPARIN BUT WILL CONSIDER 81 MG ASA. WILL CHECK ADMISSION H&P TO SEE IF SHE WAS ON ANTICOAGULATION MEDICATION AT THE TIME OF ADMISSION. 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 To 4:30 p.m. 5 days a week; leaves work is 7:30 a.m. And returns at 6. Needs to achieve 1 person minimal to moderate assist level for discharge home. Set discharge date for 01/22/2018. TENTATIVELY, HER DISCHARGE IS FOR TOMORROW, ON ALL DISCHARGE PAPERWORK IS BEING PREPARED. HER COMMERCIAL SALES DIRECTOR IS WORKING UP ON FOLLOW-UP APPOINTMENTS AND HOME CARE. Plan: 01/15/18 14:13 01/18/18 11:39 01/19/18 12:04 01/20/18 12:16 01/21/18 10:54 Subjective: SHE HAS NO COMPLAINTS THIS MORNING. SHE DOES NOT WISH FOR HER BACLOFEN DOSAGE TO BE INCREASED AT THIS TIME. SHE HAS AN ANTICIPATED DISCHARGE DATE OF TOMORROW. APPARENTLY HER COMMERCIAL SALES DIRECTOR IS STILL WORKING ON THIS. Objective: Vital Signs Temp Pulse Resp BP Pulse Ox 36.3 C 54 L 16 110/66 90 L 01/20/18 06:47 01/21/18 06:29 01/21/18 06:29 01/21/18 06:29 01/21/18 06:29 Laboratory Results 01/18/18 16:45 01/20/18 01/21/18 01/22/18 05:59 05:59 05:59 Intake Total 450 758 300 Output Total 300 Balance 150 758 300 Physical Exam - Physical Exam General Appearance: WD/WN, alert, no apparent distress Respiratory: chest non-tender, lungs clear Cardiac/Chest: No edema Abdomen: non-tender, soft Neuro/Psych: motor weakness, speech abnormalities, No cognition abnormalities ( INCREASED TONE AND RIGHT UPPER EXTREMITY PARTICULARLY WRIST AND FINGER FLEXORS. UNCHANGED FROM PREVIOUS EXAM.) ICD10 Worksheet Patient Problems: Problems Problem Status Onset Concussion injury of brain Active Migraine with aura Active Seizure disorder Active flatfoot Active Acute encephalopathy Acute Intracerebral hematoma Acute
[2018-01-21] MEDS: CARBIDOPA/LEVODOPA 25 MG/100 MG TAB PO SCH (12:15)
[2018-01-21] MEDS: BACLOFEN 10 MG TAB PO SCH ×2 (12:16→20:07)
--- NOTE | 2018-01-21 12:55 | PDOREHIP ---
Admission [facility] - Admission - 3 Day Assessment Period Admission Date/Day 1: 01/08/18 Day 2: 01/09/18 Day 3: 01/10/18 - Active Diagnoses Comorbidities and Co-existing Conditions at Admission: 89472. None of the Above - Skin Conditions # Stage 1 Pressure Ulcers-Admission: 0 # Stage 2 Pressure Ulcers-Admission: 0 # Stage 3 Pressure Ulcers-Admission: 0 # Stage 4 Pressure Ulcers-Admission: 0 # Unstageable Pressure Ulcers (Non-remove Dress)-Admission: 0 # Unstageable Pressure Ulcers (Slough/Eschar)-Admission: 0 # Unstageable Pressure Ulcers (Deep Tissue Injury)-Admission: 0 Discharge [facility] - Discharge - 3 Day Assessment Period 2 Days Prior to Anticipated Discharge Date: 01/20/18 1 Day Prior to Anticipated Discharge Date: 01/21/18 Anticipated Discharge Date: 01/22/18
[2018-01-21 18:40] VITALS: O2SAT 95
--- NOTE | 2018-01-21 18:55 | GDS ---
[f rep st] DISCHARGE SUMMARY TIME OF DICTATION: 2:32 p.m. on 01/21/2018. HISTORY OF PRESENT ILLNESS: Patient was admitted to the inpatient rehabilitation unit at 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 She was initially evaluated at [facility] for continuous EEG monitoring. At that time, her Keppra was also increased. During this time, no epileptiform activity was noted, but her clinical history was felt to be consistent with subclinical nonconvulsive seizures. She also had presented at that time with increased right upper extremity spasticity and contractures. Her baclofen dose was increased while at [facility]. MRI imaging showed no new cerebral bleed or other neurological abnormalities. Workup including CBC and basic metabolic profile did not show any significant abnormalities. At the time of admission to the rehab unit, she was tolerating a regular diet with thin liquids with aspiration precautions. She was maximum assist with her grooming and bathing. Dressing required maximal assistance. She was dependent for toileting. Bed mobility required moderate assistance. [id number] required moderate assistance and stand to sit required maximal assistance. Her baclofen dose was increased to 90 mg daily with little change in right upper extremity spasticity. Insomnia was treated with trazodone at night. Her postvoid residuals were not felt to be significant. 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 She received physical occupational and speech therapy on during her rehab stay. Mid day carbidopa/levodopa was added on 01/03/2018, dosage of 1/2 a tablet. She reported that she was sleeping well with melatonin as needed. No significant improvement was made with Speech Therapy who was addressing expressive aphasia. At the time of discharge, Physical Therapy reported bed mobility as minimal assist with right lower extremity. She was noted to have inconsistent performance throughout the day. Minimal to moderate assist sit-to- stand with FWW. Patient was noted to have freezing episodes during pivoting transfers. She was ambulating 15-20 feet using the FWW with moderate assist. Her physical therapist reported that her left lower extremity was scissoring over her right lower extremity, and patient tends to hold right lower extremity in extension. Occupational Therapy reported supervision with ADLs when seated at sink. Upper extremity dressing was min assist, lower extremity dressing max to moderate assist. DISCHARGE PHYSICAL EXAMINATION: GENERAL: Seated in wheelchair. Appears comfortable. NEUROLOGICAL: Expressive aphasia. Slight exophthalmos of the left eye. Increased tone. MUSCULOSKELETAL: Right upper extremity with wrist and finger flexion which could be reduced to neutral position with prolonged passive movement. Right elbow is held in flexion, right upper extremity slightly internally rotated. Range of motion of left upper and both lower extremities was within functional limits with some mild increased tone in the right lower extremity. No ankle clonus. LUNGS: Clear to auscultation. CARDIAC: Regular rate and rhythm. No lower extremity edema. No calf tenderness. SKIN: No lesions or breakdown. LABS: Keppra level was slightly elevated at 49.5, DISCHARGE MEDICATIONS: Acetaminophen 650 p.o. q.6 hours. Baclofen 20, 25, 20, 25 per day, a total of 90. Carbidopa levodopa 0.5 mg p.o. daily. Keppra 1500 mg b.i.d. of note, prior to discharge, her Keppra level was slightly elevated at 49.5. THIS WAS DISCUSSED WITH PHARMACY WHO RECOMMENDED TO HOLD 3 DOSES. Therefore, the p.m. dose was held on January 21 and will be held on Thursday the day of discharge to resume Thursday. Melatonin 3 mg p.o. q.h.s. p.r.n. insomnia. Zofran 4 mg p.o. q.h.s., Zoloft 50 mg p.o. daily. DISCHARGE DISPOSITION: To home with . She has some clean up helper banquet that will be helping her . She will receive in-home physical and occupational therapy along with home care. She was discharged in stable condition. /[id number]/MODL MTDD
[2018-01-21] MEDS: MELATONIN 3 MG TAB PO PRN (20:07)
[2018-01-22] MEDS: BACLOFEN 20 MG TAB PO SCH ×3 (08:04→15:57)
[2018-01-22] MEDS: ENOXAPARIN 40 MG/0.4 ML SYR SC SCH (09:30)
[2018-01-22] MEDS: SERTRALINE HCL 50 MG TAB PO SCH (09:30)
[2018-01-22 09:50] VITALS: BP 120/62; PULSE 52; RESP 16
[2018-01-22] MEDS: CARBIDOPA/LEVODOPA 25 MG/100 MG TAB PO SCH (12:25)
[2018-01-22] MEDS: BACLOFEN 10 MG TAB PO SCH (12:25)
== END 2018-01-22 17:15 | disposition home health service (06) | DRG 101 ==
LOC: BREH 14:41
PROVIDERS: ADMIT Internal Medicine; ATTEND Physical Medicine & Rehabilitation
PROC: F07Z9FZ Gait Training/Functional Ambulation Treatment using Assistive, Adaptive, Supportive or Protective Equipment (ICD-10-PCS; principal; 2018-01-08)
PROC: F08Z1FZ Dressing Techniques Treatment using Assistive, Adaptive, Supportive or Protective Equipment (ICD-10-PCS; principal; 2018-01-08)
PROC: F08Z0FZ Bathing/Showering Techniques Treatment using Assistive, Adaptive, Supportive or Protective Equipment (ICD-10-PCS; principal; 2018-01-08)
PROC: F08Z2FZ Grooming/Personal Hygiene Treatment using Assistive, Adaptive, Supportive or Protective Equipment (ICD-10-PCS; principal; 2018-01-08)
PROC: F06Z1ZZ Speech-Language Pathology and Related Disorders Counseling Treatment (ICD-10-PCS; principal; 2018-01-08)
PROC: F07Z8FZ Transfer Training Treatment using Assistive, Adaptive, Supportive or Protective Equipment (ICD-10-PCS; principal; 2018-01-08)
PROC: F07Z5FZ Bed Mobility Treatment using Assistive, Adaptive, Supportive or Protective Equipment (ICD-10-PCS; principal; 2018-01-08)
DX: G40.401 Other generalized epilepsy and epileptic syndromes, not intractable, with status epilepticus (principal); G20 Parkinson's disease; I69.351 Hemiplegia and hemiparesis following cerebral infarction affecting right dominant side; I69.398 Other sequelae of cerebral infarction; G93.89 Other specified disorders of brain; G43.909 Migraine, unspecified, not intractable, without status migrainosus; G40.101 Localization-related (focal) (partial) symptomatic epilepsy and epileptic syndromes with simple partial seizures, not intractable, with status epilepticus; M24.531 Contracture, right wrist; M24.541 Contracture, right hand; F32.9 Major depressive disorder, single episode, unspecified; Z86.011 Personal history of benign neoplasm of the brain; Z87.81 Personal history of (healed) traumatic fracture; Z91.81 History of falling; G47.00 Insomnia, unspecified; N39.0 Urinary tract infection, site not specified; R33.9 Retention of urine, unspecified; L89.619 Pressure ulcer of right heel, unspecified stage; L89.629 Pressure ulcer of left heel, unspecified stage
CPT/HCPCS: 80177-90; 92507-GN; 92522-GN; 92610-GN; 97110-GO; 97110-GP; 97112-GO; 97112-GP; 97116-GP; 97162-GP; 97166-GO; 97530-GO; 97530-GP; 97535-GO; 97542-GP; J1650

== ENCOUNTER 2018-01-19 06:56 | Emergency (ER) | payer OTHER ==
[2018-01-19 07:12] LABS: PLATELET COUNT 219 10^3/uL (150-400)
--- NOTE | 2018-01-19 07:50 | EDPHY ---
H & P Time Seen by Provider: 01/19/18 07:31 HPI/ROS: CHIEF COMPLAINT: Excessive sleepiness, altered mental status HISTORY OF PRESENT ILLNESS: The patient has a history of multiple meningiomas. She was recently admitted to [facility] for possible status epilepticus. During that hospitalization the observed no seizure activity on continuous EEG monitoring. The patient ultimately discharged on increased dosed of Keppra and Bactrim. She has been at the inpatient rehab facility here at [facility] for the past 10 days. The patient reportedly had an episode this morning where she was difficult to arouse prompting her visit to the emergency department. In talking with her , this event has been occurring with some increasing frequency prior to her past hospitalization. There is not a clear association between the development of the symptoms and the initiation of a new medication. The patient has not had a history of fall or trauma. The patient denies any acute numbness or weakness. The patient reports that she is starting to feel more awake and at baseline. REVIEW OF SYSTEMS: A comprehensive 10 point review of systems is otherwise negative aside from elements mentioned in the history of present illness. Source: Patient, Family - Personal History Tetanus Vaccine Date: Unsure - Medical/Surgical History Hx Asthma: No Hx Chronic Respiratory Disease: No Hx Diabetes: No Hx Cardiac Disease: No Hx Renal Disease: No Hx Cirrhosis: No Hx Alcoholism: No Hx HIV/AIDS: No Hx Splenectomy or Spleen Trauma: No Other PMH: Complex migraines, meningiomas, CVA with right sided weakness with occasional expressive aphasia , spinal fusion [id number], radiation with menigiomas 1993, left foot crush injury decreasing pt.'s balance, seizure - Social History Smoking Status: Never smoked - Physical Exam Exam: General Appearance: Alert, no acute distress Eyes: Pupils equal and round no pallor or injection ENT, Mouth: Dry mucous membranes Respiratory: There are no retractions, lungs are clear to auscultation Cardiovascular: Regular rate and rhythm Gastrointestinal: Abdomen is soft and nontender, no masses, bowel sounds normal Neurological: 5/5 strength all 4 extremities, slow speech pattern, cranial nerves 2-12 intact Skin: Warm and dry, no rashes Musculoskeletal: Neck is supple nontender Extremities: symmetrical, full range of motion Allergies/Adverse Reactions: No Allergies [NKA] Allergy (Verified 12/15/17 09:07) No Allergies Allergy (Unknown, Uncoded 12/17/17 15:28) Home Medications: Medication Instructions Recorded Sertraline HCl [Zoloft 50mg (*)] 50 mg PO DAILY #30 tab 01/05/15 Baclofen [Baclofen 10 mg (*)] 20 mg PO DAILY@12 02/01/16 Baclofen [Baclofen 10 mg (*)] 25 mg PO BID 02/01/16 Carbidopa/Levodopa 25/100Mg 1 tab PO BID 02/01/16 [Sinemet 25/100 MG (*)] levETIRAcetam [Keppra 500 mg (*)] 1,500 mg PO BID 02/01/16 Medical Decision Making ED Course/Re-evaluation: I reviewed the patient's past medical records. She was taken for CT scan of the brain which demonstrates no evidence of an acute intracranial process. I re -evaluated the patient with her . He reports that she is back at baseline. At this point time the etiology of her symptoms are somewhat uncertain. It is certainly possible day of the result of subclinical seizures, medication side effect or complex migraines. None the less I do feel the patient can be discharged back to the rehab facility here [facility]. I spoke with Dr. Weber from rehab and reviewed the patient's workup. At this point time the etiology of her symptoms are somewhat confusing. None the less, the patient is well-appearing at this point time. She has no evidence of an acute stroke, acute neurologic deficit or vital sign abnormality. She will be transferred back to the rehab facility for further care. Differential Diagnosis: Differential diagnosis considered includes intracranial hemorrhage, dehydration , metabolic abnormality, renal failure, medication side effect, seizure - Data Points Laboratory Results: Laboratory Results 01/19/18 07:00 01/19/18 07:00 01/19/18 01/19/18 07:00 07:00 WBC 3.51 10^3/uL L 10^3/uL (3.80-9.50) RBC 4.54 10^6/uL 10^6/uL (4.18-5.33) Hgb 14.2 g/dL g/dL (12.6-16.3) Hct 42.4 % % (38.0-47.0) MCV 93.4 fL fL (81.5-99.8) MCH 31.3 pg pg (27.9-34.1) MCHC 33.5 g/dL g/dL (32.4-36.7) RDW 13.2 % % (11.5-15.2) Plt Count 219 10^3/uL 10^3/uL (150-400) MPV 9.5 fL fL (8.7-11.7) Neut % (Auto) 54.7 % % (39.3-74.2) Lymph % (Auto) 28.5 % % (15.0-45.0) Perry % (Auto) 13.4 % H % (4.5-13.0) Eos % (Auto) 1.7 % % (0.6-7.6) Baso % (Auto) 1.1 % % (0.3-1.7) Nucleat RBC Rel Count 0.0 % % (0.0-0.2) Absolute Neuts (auto) 1.92 10^3/uL 10^3/uL (1.70-6.50) Absolute Lymphs (auto) 1.00 10^3/uL 10^3/uL (1.00-3.00) Absolute Monos (auto) 0.47 10^3/uL 10^3/uL (0.30-0.80) Absolute Eos (auto) 0.06 10^3/uL 10^3/uL (0.03-0.40) Absolute Basos (auto) 0.04 10^3/uL 10^3/uL (0.02-0.10) Absolute Nucleated RBC 0.00 10^3/uL 10^3/uL (0-0.01) Immature Gran % 0.6 % % (0.0-1.1) Immature Gran # 0.02 10^3/uL 10^3/uL (0.00-0.10) Sodium 139 mEq/L mEq/L (135-145) Potassium 5.1 mEq/L mEq/L (3.5-5.2) Chloride 103 mEq/L mEq/L (97-110) Carbon Dioxide 26 mEq/l mEq/l (22-31) Anion Gap 10 mEq/L mEq/L (8-16) BUN 19 mg/dL mg/dL (7-23) Creatinine 0.6 mg/dL mg/dL (0.6-1.0) Estimated GFR > 60 Glucose 81 mg/dL mg/dL (70-100) Calcium 9.2 mg/dL mg/dL (8.5-10.4) Specimen Hemolysis 131 Departure - Departure Disposition: Home, Routine, Self-Care Clinical Impression: Intracranial meningioma, Altered mental status Condition: Good Instructions: Meningioma (ED)
[2018-01-19 09:20] VITALS: RESP 16; O2SAT 98
[2018-01-19 09:26] VITALS: BP 126/77; PULSE 58; TEMP 98.2
== END 2018-01-19 09:15 | disposition home or self-care (01) ==
LOC: EDUNIT#
DX: R41.82 Altered mental status, unspecified (principal); D32.0 Benign neoplasm of cerebral meninges; Z86.73 Personal history of transient ischemic attack (TIA), and cerebral infarction without residual deficits

== ENCOUNTER 2018-01-23 15:04 | Inpatient (IN) | payer OTHER ==
--- NOTE | 2018-01-23 15:14 | EDPHY ---
HPI/HX/ROS/PE/MDM Narrative: CHIEF COMPLAINT: Altered mental status/ stoke alert HISTORY OF PRESENT ILLNESS: The patient is a 62 y/o female arriving via EMS as a stroke alert for altered mental status. She is currently non-verbal. Information obtained through medical records reveals a history of a hemorrhagic stroke with right side deficits. EMS reports she fell this morning in the bathtub and complained of neck pain. She then went to sleep around 10AM and was last seen normal then. She awoke around 2:30 PM with significantly right side deficits. Our records indicate that she was seen for a about a month ago for possible status epilepticus and sent to [facility] for continuos EEG. She then was seen in the ED 4 days ago from inpatient rehab for altered mental status and no clear etiology (possibly thought to be related to medications) was discharged back to rehab. EMS reports she was home with her today. Her arrived and provided more information. According to him patient was not felt to be in status epilepticus but was felt to be having seizures. [facility] had recommended increasing the patient's Keppra. Patient was discharged to our rehab facility after her acute evaluation at [facility]. Her Keppra level was elevated recently per the and it was determined that she shouldn't take anymore until today, so she has not had Keppra is several days. Today, after the fall she was baseline but over time she became less responsive, reported neck pain and tingling in her hands, and had significant decrease in her mentation. denies fever, chills, chest pain, shortness of breath, palpitations, vomiting, diarrhea, urinary complaints, headache, lightheadedness. REVIEW OF SYSTEMS: Review of systems is unobtainable from this patient because of altered mentation. PAST MEDICAL HISTORY: 1. Meningioma with 4 resections and 2 left orbital reconstructions and radiation 2. Hemorrhagic CVA in 2013 with baseline right-sided deficits 3. 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 TIAs and migraines mimicking stroke symptoms 5. L4-L5 spinal fusion 6. Seizure disorder 7. Occipital condylar fracture SOCIAL HISTORY: , at bedside, Neurologist: Shlomo VITAL SIGNS: Reviewed by me GENERAL: Follows commands intermittently, non-verbal HEENT: Dried blood in mouth, scrape on chin. Eyes: Initial left side gaze preference with nystagmus. Resolved after Ativan. Mouth: Dried blood in and around mouth and teeth. No evidence of tongue trauma. Moist mucous membranes. No erythema or lesions. Neck: In a cervical collar. LUNGS: Clear to auscultation bilaterally, no wheezes, rhonchi or rales. CARDIAC: Regular rate and rhythm, no rubs, murmurs or gallops. ABDOMEN: Soft, nontender, nondistended, bowel sounds normal. BACK: No CVA tenderness. EXTREMITIES: Contracted, flexed, rigid right arm. Tonic contracted right leg. Questionable weakness in the left arm and left leg. NEURO: Non-verbal. Follows commands intermittently SKIN: Warm and dry, no rash. PSYCHIATRIC: Unable to assess. ED Course: 12-LEAD EKG: Please see the full report in [facility]. My interpretation: Normal sinus rhythm with left axis deviation The patient has been seen several times for deviations from baseline, believed to be cause by seizures. I met her on arrival as a stroke alert. She is non- verbal at time of arrival. Her right arm and leg are tonically contracted. Favoring left gaze with left gaze nystagmus. I believed she may be seizing and ordered Ativan to be administered as she went to CT. 3:25 PM- CT was negative for signs of intracranial bleeding or other brain injury. She does have several facial fractures, see report for more details. I reexamined her and found her left gaze deviation had improved and nystagmus resolved. Her exam indicated blood in and around her mouth due to trauma. 3:45 PM- arrived and provided information detailed in the HPI. Since she has not had Keppra in several days I am more confident this may be due to seizure. Patient received Keppra 1000 mg IV Patient's course discussed with Dr. Errol Estes. He will evaluate the patient as she presented with a traumatic complaint in addition to possible stroke. 5:30 PM- I spoke to the hospitalist service regarding admission. They agree to admit. She is currently more alert and answering simple questions. reports she is closer to her baseline. MDM: After the history was obtained and physical exam performed, the following differential for the patient's altered mental status was considered included but was not limited to seizure, stroke, intracranial hemorrhage, status epilepticus, occult infection. - Data Points Imaging Results: Imaging Impressions Cervical Spine CT 01/23/18 15:08 Impression: 1. No acute intracranial abnormality seen. 2. Isodense meningioma is once again seen left frontal as well as left posterior frontal to parietal regions. 3. Stable encephalomalacia related to previous intracranial surgical procedures as detailed above. 4. No acute abnormality seen associated with the cervical spine. 5. Nondisplaced fractures left inferior nasal bone near the nasal spine as well as nondepressed fractures of the anterior wall of each maxillary sinus with associated air-fluid levels in the maxillary sinuses. Findings discussed with Fátima Marr MD at 15:42 hour, 01/23/2018. If symptoms worsen, additional imaging may be necessary. Head CT 01/23/18 15:08 Impression: 1. No acute intracranial abnormality seen. 2. Isodense meningioma is once again seen left frontal as well as left posterior frontal to parietal regions. 3. Stable encephalomalacia related to previous intracranial surgical procedures as detailed above. 4. No acute abnormality seen associated with the cervical spine. 5. Nondisplaced fractures left inferior nasal bone near the nasal spine as well as nondepressed fractures of the anterior wall of each maxillary sinus with associated air-fluid levels in the maxillary sinuses. Findings discussed with Fátima Marr MD at 15:42 hour, 01/23/2018. If symptoms worsen, additional imaging may be necessary. Imaging: Discussed imaging studies w/ global upstream marketing manager Radiologist Laboratory Results: Laboratory Results 01/23/18 16:00 01/23/18 15:11 01/23/18 01/23/18 01/23/18 16:00 15:30 15:30 WBC 7.41 10^3/uL 10^3/uL (3.80-9.50) RBC 4.31 10^6/uL 10^6/uL (4.18-5.33) Hgb 13.6 g/dL g/dL (12.6-16.3) Hct 39.7 % % (38.0-47.0) MCV 92.1 fL fL (81.5-99.8) MCH 31.6 pg pg (27.9-34.1) MCHC 34.3 g/dL g/dL (32.4-36.7) RDW 13.1 % % (11.5-15.2) Plt Count 203 10^3/uL 10^3/uL (150-400) MPV 9.5 fL fL (8.7-11.7) Neut % (Auto) 81.2 % H % (39.3-74.2) Lymph % (Auto) 8.2 % L % (15.0-45.0) Duval % (Auto) 9.4 % % (4.5-13.0) Eos % (Auto) 0.4 % L % (0.6-7.6) Baso % (Auto) 0.4 % % (0.3-1.7) Nucleat RBC Rel Count 0.0 % % (0.0-0.2) Absolute Neuts (auto) 6.01 10^3/uL 10^3/uL (1.70-6.50) Absolute Lymphs (auto) 0.61 10^3/uL L 10^3/uL (1.00-3.00) Absolute Monos (auto) 0.70 10^3/uL 10^3/uL (0.30-0.80) Absolute Eos (auto) 0.03 10^3/uL 10^3/uL (0.03-0.40) Absolute Basos (auto) 0.03 10^3/uL 10^3/uL (0.02-0.10) Absolute Nucleated RBC 0.00 10^3/uL 10^3/uL (0-0.01) Immature Gran % 0.4 % % (0.0-1.1) Immature Gran # 0.03 10^3/uL 10^3/uL (0.00-0.10) Sodium Potassium Chloride Carbon Dioxide Anion Gap BUN Creatinine Estimated GFR Glucose Calcium Troponin I Prolactin 69.4 ng/mL H ng/mL (3.0-18.6) Levetiracetam Pending 01/23/18 15:11 WBC RBC Hgb Hct MCV MCH MCHC RDW Plt Count MPV Neut % (Auto) Lymph % (Auto) Duval % (Auto) Eos % (Auto) Baso % (Auto) Nucleat RBC Rel Count Absolute Neuts (auto) Absolute Lymphs (auto) Absolute Monos (auto) Absolute Eos (auto) Absolute Basos (auto) Absolute Nucleated RBC Immature Gran % Immature Gran # Sodium 141 mEq/L mEq/L (135-145) Potassium 4.0 mEq/L mEq/L (3.5-5.2) Chloride 105 mEq/L mEq/L (97-110) Carbon Dioxide 26 mEq/l mEq/l (22-31) Anion Gap 10 mEq/L mEq/L (8-16) BUN 22 mg/dL mg/dL (7-23) Creatinine 0.6 mg/dL mg/dL (0.6-1.0) Estimated GFR > 60 Glucose 89 mg/dL mg/dL (70-100) Calcium 9.5 mg/dL mg/dL (8.5-10.4) Troponin I < 0.012 ng/mL ng/mL (0.000-0.034) Prolactin Levetiracetam Medications Given: Discontinued Medications Levetiracetam (Keppra (Premix)) 100 mls @ 400 mls/hr IV EDNOW ONE Stop: 01/23/18 17:01 Last Admin: 01/23/18 17:39 Dose: 100 mls Sodium Chloride (Ns) 1,000 mls @ 0 mls/hr IV ONCE ONE; Wide Open PRN Reason: Protocol Stop: 01/23/18 16:51 Last Admin: 01/23/18 16:54 Dose: Not Given Levetiracetam (Keppra) 1,000 mg PO EDNOW ONE Stop: 01/23/18 16:33 Last Admin: 01/23/18 16:47 Dose: Not Given General Time Seen by Provider: 01/23/18 15:09 Initial Vital Signs: Initial Vital Signs Temperature (C) 36.9 C 01/23/18 15:04 Heart Rate 74 01/23/18 15:04 Respiratory Rate 16 01/23/18 15:04 Blood Pressure 100/79 01/23/18 15:04 O2 Sat (%) 93 01/23/18 15:04 O2 Delivery Mode Nasal Cannula O2 (L/minute) 2 Allergies/Adverse Reactions: No Allergies [NKA] Allergy (Verified 12/15/17 09:07) Home Medications: Medication Instructions Recorded Carbidopa/Levodopa 25/100Mg 1 tab PO BID 30 Days tab 01/21/18 [Sinemet 25/100 MG (*)] Carboxymethylcellulose 0.5% 1 melissa EACHEYE Q2HRS PRN 30 Days 01/21/18 [Refresh Plus Drops 0.5%] droperette Melatonin [Melatonin 3 MG (*)] 3 mg PO HS PRN 30 Days tab 01/21/18 Sertraline HCl [Zoloft 50mg (*)] 50 mg PO DAILY #30 tab 01/21/18 levETIRAcetam [Keppra 500 mg (*)] 1,500 mg PO BID 30 Days tab 01/21/18 Baclofen [Baclofen 10 mg (*)] 20 mg PO QID 01/23/18 Carbidopa/Levodopa 25/100Mg 0.5 tab PO DAILY@12 01/23/18 [Sinemet 25/100 MG (*)] Departure - Departure Disposition: [facility] Inpatient Acute Clinical Impression: possible seizure Altered mental status Qualifiers: Altered mental status type: unspecified Qualified Code(s): R41.82 - Altered mental status, unspecified Condition: Fair Report Scribed for: Fátima Marr Report Scribed by: Daysi Li Date of Report: 01/23/18 Time of Report: 17:35 Physician Review and Approval Statement: Portions of this note were transcribed by a biomedical manager. I personally performed a history, physical exam, medical decision making, and confirmed accuracy of information the transcribed note.
[2018-01-23 15:35] VITALS: RESP 16
--- NOTE | 2018-01-23 15:50 | CPEKG ---
Heart Rate: 57 RR Interval: 1053 P-R Interval: 208 QRSD Interval: 94 QT Interval: 464 QTC Interval: 452 P [place]: 41 QRS [place]: -35 T Wave [place]: 65 EKG Severity - OTHERWISE NORMAL ECG - EKG Impression: SINUS RHYTHM EKG Impression: LEFT AXIS DEVIATION Electronically Signed By: Fátima Marr 23-Jan-2018 23:02:23
[2018-01-23 16:17] LABS: PLATELET COUNT 203 10^3/uL (150-400)
[2018-01-23] MEDS ORDERED: levETIRAcetam 500 MG TAB PO ONE (16:32)
[2018-01-23] MEDS ORDERED: levETIRAcetam 1000MG/NACL 100 ML IV ONE (16:47)
[2018-01-23] MEDS ORDERED: NS 1,000 ML IV ONE (16:50)
--- NOTE | 2018-01-23 17:04 | ASMTCMCOM ---
CM Note CM Note Notes: Pt presented to the Emergency Department as a stroke alert, via EMS, following a fall this morning. Pt lives at home with her . Per prior provider notes, pt was discharged from [facility] yesterday, Thursday01/22/18. Pt was at inpt rehab for recurrent subclinical seizures. Prior to rehab, the pt was evaluated at [facility] for continuous EEG monitoring and medication adjustments. The pt had been set up with home care (PT/OT) and some private duty assistance. Attempted to meet w/ pt's without success. Pt currently w/ aphasia; unable to provide additional information at this time. Pt to be admitted for further evaluation and treatment. CM will continue to follow. Date Signed: 01/23/2018 05:03 PM Electronically Signed By:Georgette De Leon RN
[2018-01-23] MEDS ORDERED: ONDANSETRON 4 MG/2 ML VIAL IVP PRN (18:59)
[2018-01-23] MEDS ORDERED: ONDANSETRON DISINTEGRATING 4 MG TAB PO PRN (18:59)
[2018-01-23] MEDS ORDERED: NS 1,000 ML IV SCH (19:00)
--- NOTE | 2018-01-23 20:02 | GHP ---
[f rep st] HISTORY AND PHYSICAL DATE OF ADMISSION: 01/23/2018 CHIEF COMPLAINT: Fall with altered mental status. HISTORY OF PRESENT ILLNESS: This is a 62-year-old female with a very complicated past medical histor y including recurrent meningioma and a hemorrhagic stroke with significant right-sided deficits, who was released from inpatient rehabilitation at [facility] yesterday to home with care providers and home physical therapy, occupational therapy. Patient, reported through the , lori sotomayor at her 1-person assist baseline when she returned home last night, had a normal dinner, and slept n ormally. She alvaro this morning and was assisted into the seated bench of their shower, where she lennie hardik could clean and shower herself without supervision. During the shower, we believe toward the end, as the patient was attempting to turn the water off reached beyond her scope, fell forward and h it her head on the faucet of the bathtub. Patient's came into the bathroom and found her on the floor of the shower bleeding from her nose and her mouth and not responding appropriately. He cl eaned the patient up, assisted her to bed, where she commenced to take a nap. When she woke, was men tating more clearly but feeling quite tired. Then developed what sounded to be rhythmic motions of h er left extended arm as well as then confusion and somnolence. Patient's mental status did not impro ve after this event and therefore the called for EMS assist and evaluation in the emergency d epartment. Upon her 1st evaluation in the ED by ED staff, the patient was not responding appropriate ly to questions and was not conversant. By the time I evaluated, the patient was more alert and atte mpting to answer questions, although did have some aphasia and complications with her answers. The p atient no longer had the strength dissymmetry that the had seen, also at home with weakness o f her good extremity on the left. The patient was denying any chest pain, any shortness of breath, a ny abdominal discomfort, was reporting hunger. denied any changes recently in her bowel habi ts. She is denying dysuria, hematuria. Patient did report some discomfort of her head. The patient had been seen recently at [facility] for what was suspected to be status epilepticus, was initiat ed on antiseizure treatment with Keppra, which was up titrated to 1500 mg twice a day. While the pat michaelle was at rehabilitation, was noted to be lethargic and had a mildly supratherapeutic Keppra level. She had her Keppra then held. The is unclear for how many days and the family had been ins tructed to reinitiate the medication today at home at the 1500 mg twice a day dose. The patient had her fall and episode prior to getting this Keppra. PAST MEDICAL HISTORY: 1. Recurrent meningioma, status post 4 resections as well as radiation. 2. Hemorrhagic stroke October 2013 with significant right-sided deficits. 3. 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 4. Multiple TIAs. 5. Complex migraines. 6. Seizure disorder. 7. Occipital condylar fracture. SOCIAL HISTORY: Negative for tobacco, alcohol, or illicit drugs. FAMILY HISTORY: Negative for strokes. ADVANCED DIRECTIVES: Patient is full cor, full tube. Her would be her medical decision make r. REVIEW OF SYSTEMS: A 10-point review of systems is negative with the exception of that reported in t he HPI. PHYSICAL EXAMINATION: VITAL SIGNS: Blood pressure is 118/79, heart rate 59, respiratory rate 16, sa turating 97% on 2 L, temperature 36.9. GENERAL: This is a comorbidly ill-appearing female lying flat in bed. HEENT: Exam is notable for dissymmetry of her eyes with eyelid droop more prominent on the right, consistent with her previous stroke. Mouth exam is notable for dried blood in both the nares and her mouth. CARDIAC: Regular. PULMONARY: Good respiratory effort. Clear to auscultation bila terally. GASTROINTESTINAL: The patient has positive bowel sounds. Soft and nontender in all 4 quad rants. MUSCULOSKELETAL: Negative for any lower extremity edema. SKIN: Negative for any rashes. N EUROLOGIC: The patient's attention is waxing and waning. She periodically can appropriately answer a question. She has significant deficits on the right side of her body. Strength is 4/5 of the left upper. Left lower extremity is medially rotated. She cannot cooperate with her lower extremity exa m. PSYCHIATRIC: Patient has a waxing, waning attention span. DATA: White count 7.4, hematocrit 39.7, platelets of 203. Troponin less than 0.012. Sodium 141. N oncontrast CT of the head, which I personally reviewed and interpreted, shows no acute intracranial p rocess. Radiology does comment on a left inferior nasal bone fracture. Cervical spine CT, which I p ersonally reviewed and interpreted, shows no acute fractures. ASSESSMENT AND PLAN: This is a 62-year-old female presenting status post fall with facial trauma and changes in mentation. 1. Suspected acute seizure. Based on the time course of the patient's seizure medications as well a s the description of the event provided by the , I suspect patient likely did have an acute se izure after she fell in the shower. It is possible this was provoked by the incident and made worse by potential myriam in her Keppra levels as that medication had been held for an uncertain amount of t deo recently. We will admit the patient. She has received IV Keppra in the emergency department. W e will send a Keppra level from her initial admission labs as well as send a prolactin level. Neurol ogy will be consulted to assist in decisions related to ongoing seizure management as it is clear it has been difficult to titrate her medications related to somnolence and seizure prevention. Patient will be admitted to [address] [place] [address] for neurologic monitoring and seizure assessments. 2. Acute facial trauma secondary to fall. These are nonoperative fractures. Have asked that the [facility] surgeons be consulted from the emergency department. 3. CT of the spine is negative for fracture. Continue to monitor. 4. History of a hemorrhagic stroke. Patient has persistent deficits. We will have PT, OT see her. I am going to avoid blood thinners for prophylaxis overnight and instead use SCDs to avoid any compl icating factors with a recent facial trauma and her history of hemorrhagic stroke. 5. Recurrent meningioma as imaging does not show any new meningioma. We will continue to support [facility] PT, OT, and speech therapy. 6. Gait disturbance from spasticity. We will continue patient's home meds once reconciled. Again, will consult therapies and work on good disposition plan home. 7. Prophylaxis with SCDs. 8. Diet regular if she is protecting her airway and remaining alert. 9. Acute encephalopathy thought secondary to seizure and postictal state. Will avoid sedating medic ations for this patient overnight. She has already received a dose of Keppra. We will monitor her c losely until neurologic evaluation tomorrow. I will not order additional imaging of her brain this e vening and again wait for neurologic colleagues to evaluate. DISPOSITION: I expect greater than 2 midnights as the patient is quite complicated and will need mul tiple assessments for safe disposition including neurologic consultation. I have discussed the case with the emergency room physician. Patient will be triaged to the medical-surgical floor for care. /[id number]/MODL
[2018-01-23] MEDS ORDERED: CARBOXYMETHYLCELLULOSE 0.5% 0.4 ML DROPERETTE EACHEYE PRN (20:22)
[2018-01-23] MEDS: BACLOFEN 10 MG TAB PO SCH (21:21)
[2018-01-23] MEDS: CARBIDOPA/LEVODOPA 25 MG/100 MG TAB PO SCH (21:22)
[2018-01-23] MEDS: ACETAMINOPHEN 325 MG TAB PO PRN (21:22)
[2018-01-24 05:15] LABS: PLATELET COUNT 195 10^3/uL (150-400)
[2018-01-24] MEDS: BACLOFEN 10 MG TAB PO SCH ×4 (06:02→21:10)
--- NOTE | 2018-01-24 06:15 | PDMN ---
Medical Necessity Medical necessity: C/M review: Patient meets INPT crtieria under [facility] [id number] Seizure: Acute - suspected seizure, facial trauma secondary to fall ( nonoperative), encephalopathy econdary to seizure and postictal state requiring planned Neurology consult, ongoing IV Keppra BID, IV NS 100 ml/hr., frequent neuro checks, acute inpt PT/OT/ST, comorbid fall in shower prior to this admission, history of inpatient rehab admission 01/08/2018-01/22/2018, recurrent meningioma S/P 4 resections and radiation, hemorrhagic stroke (10/2013) with significant right sided deficits, gait disturbance from spasticity, multiple TIAs, complex migraines, seizure disorder, occipital condylar fracture. MD anticipates > 2 MN LOS for ongoing med nec for eval and TX of above.
--- NOTE | 2018-01-24 06:25 | GCON ---
[f rep st] CONSULTATION DATE OF CONSULTATION: 01/23/2018 HISTORY OF PRESENT ILLNESS: The patient is a 62-year-old female with history of hemorrhagic stroke a nd meningiomas which have been removed as well as a residual meningioma. She has spastic right hemip aresis and complicated medical story. She apparently fell in the shower banging her nose and face. Then took a nap, but awoke with what appeared to be a seizure and then appeared to be postictal. She was brought to the emergency room at which time she improved. Her head and neck CT scans were negat arabella for any major new trauma. She does have significant cerebral atrophy but no fractures or mass le sions or bleeds. She was admitted for observation. I was consulted on a trauma basis. A CT scan in the ER did reveal nondisplaced bilateral maxilla fractures and a nondisplaced nasal fracture. She h as no other complaints and no other evidence of trauma at the moment. PAST MEDICAL HISTORY: Includes the hemorrhagic stroke, meningioma resection, spastic hemiparesis, mi graine headaches, a history of seizures, history of an occipital fracture. REVIEW OF SYSTEMS: Difficult to obtain, but is negative for any major other medical problems except related to the HPI and past history. Specifically, she does not smoke. PHYSICAL EXAMINATION: GENERAL: Reveals a responsive 62-year-old female who is obviously status post a stroke. HEAD AND NECK: Reveals a minor abrasion on her lip. No active bleeding. TMs are clear. Pupils are normal. Occlusion is normal. Neck is supple and nontender. CHEST: Clear and symmetri c without palpable fractures or clavicle fractures. CARDIAC: Reveals a regular rhythm. ABDOMEN: S oft and nontender. She is somewhat distended and tympanitic. EXTREMITIES: Reveal spastic hemipares is on the right side with full pulses and full range of motion on the left. SKIN: Reveals no major evidence of trauma or rashes. BACK: Nontender without evidence of trauma. NEUROLOGIC: Reveals a r ight hemiparesis, a distant affect but intact cranial nerves. ALLERGIES: None. MEDICATIONS: Sinemet, eyedrops, melatonin, Zoloft, Keppra, baclofen. IMPRESSION: 1. Severe chronic neurologic problems with right hemiparesis and recurrent meningioma. 2. Mild facial trauma with nondisplaced facial fractures. PLAN: There is no real evidence of any significant trauma and the trauma service will sign off at th is point. She should have an outpatient ENT consultation but her fractures are nonoperative. /[id number]/MODL
[2018-01-24] MEDS: SERTRALINE HCL 50 MG TAB PO SCH (08:56)
[2018-01-24] MEDS: CARBIDOPA/LEVODOPA 25 MG/100 MG TAB PO SCH ×3 (08:57→21:10)
[2018-01-24] MEDS ORDERED: ENOXAPARIN 40 MG/0.4 ML SYR SC SCH (09:00)
[2018-01-24] MEDS ORDERED: levETIRAcetam 500MG/NACL 100 ML IV SCH (09:00)
--- NOTE | 2018-01-24 13:26 | HOSPPROG ---
Hospitalist Progress Note Assessment/Plan: 62 yo F w seizure disorder admitted w breakthrough seizures seizures: attributable to having keppra held for extended period of time restart keppra at 1000 bid weakness: incomplete rehab at [facility] 12/18 to overmedication baclofen at 20 tid repeat inpt rehab consult fall: trauma workup negative proph: [facility] dispo: inpt Subjective: case d/w dr dias. further history reveals that her level of obtundation at [facility] rehab is probably attributable to being on excessive baclofen Objective: Vital Signs Temp Pulse Resp BP Pulse Ox 36.6 C 62 16 121/83 H 95 01/24/18 12:00 01/24/18 12:00 01/24/18 12:00 01/24/18 12:00 01/24/18 12:00 Laboratory Results 01/24/18 04:11 01/24/18 04:11 01/23/18 01/24/18 01/25/18 04:59 05:59 05:59 Intake Total Output Total Balance - Physical Exam Constitutional: no apparent distress, appears nourished Eyes: PERRL, anicteric sclera Ears, Nose, Mouth, Throat: moist mucous membranes, hearing normal Cardiovascular: regular rate and rhythym, no murmur, rub, or gallop Respiratory: no respiratory distress, no rales or rhonchi Gastrointestinal: normoactive bowel sounds, soft, non-tender abdomen Genitourinary: no bladder fullness, No hernandez in urethra Skin: warm, normal color Musculoskeletal: full muscle strength, no muscle tenderness Neurologic: AAOx3 ICD10 Worksheet Patient Problems: Problems Problem Status Onset Altered mental status Acute Concussion injury of brain Active Migraine with aura Active Seizure disorder Active flatfoot Active Acute encephalopathy Acute Intracerebral hematoma Acute
--- NOTE | 2018-01-24 14:16 | NEUROPROG ---
Assessment: [id number] - Neurology Consult: - CC: Worsening right sided weakness - Narrative Summary: She had a history of multiple brain surgeries to remove meningiomas, a hemorrhagic stroke in 2013, as well as complex migraines. After her 2013 stroke she was left with right sided weakness. She had recently been admitted to [facility] for seizures. She was then transferred to inpatient rehab. It was noted she was very somnolent at the facility after having baclofen increased from 55 mg/day to 80 mg day. Pt recently released from inpatient rehab 2 days ago. At home she fell in the shower. Her found her then noted confusion and rhythmic movement of her body and which was a probable seizure. Her reported her levetiracetam 1500 mg bid had been held at rehab due to somnolence felt to be due to a high levetiracetam level. The lack of levetiracetam is likely why she had the seizure. No further seizures since restarting levetiracetam 1000 mg bid. She was initially confused in the ER but she seemed to be improving. She was admitted for further evaluation to [facility]. I initially saw her on 01/24/18. Head and cervical CT showed no significant findings from her fall other than a non-operative left inferior nasal bone fracture. Her baclofen was lowered to 20 mg TID and levetiracetam restarted at 1000 mg bid. She has returned to baseline with no further somnolence. - PMHx: hemorrhagic stroke 2013 w/resulting right sided deficits, complex migraines, multiple meningiomas with surgical revision, seizure disorder, occipital condylar fracture - SHx: lives in [place] FHx: no strokes - O: VS reviewed General: Alert Eyes: Fundoscopic exam not able to visualize optic disks CV: Heart RRR, no murmur, no carotid bruit Lungs: Clear to auscultation bilaterally, no rhonchi or rales Neuro: - Mental: . Oriented x person/place but not date . concentration appears reduced . speech fluency/comprehension normal . memory appears reduced . fund of knowledge appear reduced - Cranial Nerves: . II: PERRL, VFFTC . III/IV/: EOMI, no nystagmus, normal smooth pursuits, no Ptosis . V: facial sensation intact to LT . VII: face symmetric to eye closure and smile, left eye bulging out due to meningioma . VIII: hearing intact to conversation . IX/X: uvula raises symmetrically . XI: SCM 5/5 B/L strength . XII: tongue protrudes midline w/nl strength - Motor: . Tone: normal tone in left arm . Strength: right arm weak from previous stroke, normal left arm strength - Reflexes: B/L bic/BR 2/4 - Sensory: all 4 extremity intact to light touch - Coord: left arm w/o coord issues - Gait: deferred - ROS: Pt denied acute fever, total vision loss, active severe chest pain, respiratory failure, total body severe rash, total bowel/bladder incontinence, psychosis, active seizures, or active bleeding - Labs: 01/23/18- CBC wnl, Chem wnl, Prolactin 69.4H - Rads: 12/16/17- Brain MRI w/o con: No acute ischemia or hemorrhage. Numerous meningiomas are unchanged since 2 weeks prior. The aggressive nature of the left frontal meningioma involving the left frontal bone and left frontal sinus is unchanged. No mass effect or shift. Extensive encephalomalacia and gliosis involving bilateral parietal lobes and left frontal and left temporal lobes is unchanged. - 01/23/18- Head CT: No acute intracranial abnormality seen. Isodense meningioma is once again seen left frontal as well as left posterior frontal to parietal regions. Stable encephalomalacia related to previous intracranial surgical procedures as detailed in full report. No acute abnormality seen associated with the cervical spine. Nondisplaced fractures left inferior nasal bone near the nasal spine as well as nondepressed fractures of the anterior wall of each maxillary sinus with associated air-fluid levels in the maxillary sinuses (I personally visualized the images on 01/24/18) - Assessment: 1. Seizure and fall: Likely from having her levetiracetam held. No seizures since restarting medication. - 2. Previous hemorrhagic stroke with right sided weakness, Multiple meningiomas: managed outpatient by Dr. Keenan - 3. Acute facial fracture from fall: trauma surgery saw and recommended outpatient ENT consultation - 4. Recent somnolence at inpatient rehab: Likely due to increasing baclofen from 55 mg/day to 80 mg/day. Somnolence improved by lowering baclofen to 20 mg TID. - Plan: - Agree with levetiracetam, would increase dose to 1500 mg bid for seizure prevention prior to discharge - Agree with baclofen 20 mg TID, would reduce dose further if patient has return of somnolence - Dr. Keenan, her outpatient neurologist, will be taking over service tomorrow and can determine her f/u needs Objective: Vital Signs Temp Pulse Resp BP Pulse Ox 36.6 C 62 16 121/83 H 95 01/24/18 12:00 01/24/18 12:00 01/24/18 12:00 01/24/18 12:00 01/24/18 12:00 Laboratory Results 01/24/18 04:11 01/24/18 04:11 01/23/18 01/24/18 01/25/18 04:59 05:59 05:59 Intake Total Output Total Balance Allergies/Adverse Reactions: No Allergies [NKA] Allergy (Verified 12/15/17 09:07)
[2018-01-24] MEDS: ACETAMINOPHEN 325 MG TAB PO PRN ×2 (16:30→21:10)
--- NOTE | 2018-01-24 18:01 | ASMTCMCOM ---
CM Note CM Note Notes: Met with pt's Colton to discuss pt's DC needs. At last [facility] admission, Yesy denied inpt rehab so pt DC'd with [facility] and pvt duty. On 01/04 pt tx from [facility] ED to [facility] for continuous EEG moniitoring. From there, pt accepted at [facility] inpt rehab. Pt DC'd from rehab on 01/21 and admitted at [facility] on 01/23 s/p fall at home after sz. Pt's is hoping that pt will be accepted again at inpt rehab. Pt's hsuband states that pt was aunable to participate in therapiues at rehab which he thinks is due to her keppra dosing. Inpt rehab eval made. CM to follow. Date Signed: 01/24/2018 11:46 AM Electronically Signed By:Cyndy Youssef LCSW
[2018-01-24] MEDS: levETIRAcetam 500 MG TAB PO SCH (21:10)
[2018-01-25] MEDS: levETIRAcetam 500 MG TAB PO SCH ×2 (08:19→21:21)
[2018-01-25] MEDS: CARBIDOPA/LEVODOPA 25 MG/100 MG TAB PO SCH ×3 (08:19→21:21)
[2018-01-25] MEDS: BACLOFEN 10 MG TAB PO SCH ×3 (08:19→21:21)
[2018-01-25] MEDS: SERTRALINE HCL 50 MG TAB PO SCH (08:19)
[2018-01-25] MEDS: ACETAMINOPHEN 325 MG TAB PO PRN (10:05)
[2018-01-25] MEDS ORDERED: MAGNESIUM HYDROXIDE 30 ML UDCUP PO PRN (12:51)
[2018-01-25] MEDS ORDERED: LACTULOSE 20 GM/30 ML UDCUP PO PRN (12:51)
[2018-01-25] MEDS ORDERED: POLYETHYLENE GLYCOL 3350 17 GM PKT PO PRN (12:51)
[2018-01-25] MEDS ORDERED: BISACODYL 10 MG SUPP PR PRN (12:51)
--- NOTE | 2018-01-25 13:18 | ASMTCMCOM ---
CM Note CM Note Notes: Therapies still recommending [facility]. Discussed w/Pilar from [facility]- she is submitting info to [employer] today for approval to [facility]. CM will try to discuss back up plan with pt and today if present. CM will follow. Date Signed: 01/25/2018 01:17 PM Electronically Signed By:Abbie Meyer RN
--- NOTE | 2018-01-25 14:55 | HOSPPROG ---
Hospitalist Progress Note Assessment/Plan: * Seizure -due to holding Keppra -continue Keppra 1000mg BID -per neurology increase 1500mg BID at discharge * Toxic/metabolic encephalopathy -due to increased Baclofen dose -reduce back to 20mg TID * Facial fracture -outpatient follow-up with ENT * h/o Hemorrhagic CVA with chronic right weakness * RUE spasticity and contractures -did poorly with increased Baclofen * Recurrent meningiomas s/p resection/XRT * Parkinsonism -continue Sinemet Subjective: No new complaints. Objective: Vital Signs Temp Pulse Resp BP Pulse Ox 36.5 C 55 L 16 137/73 H 89 L 01/24/18 15:45 01/25/18 07:31 01/25/18 07:31 01/25/18 07:31 01/25/18 07:31 Laboratory Results 01/24/18 04:11 01/24/18 04:11 01/24/18 01/25/18 01/26/18 05:59 05:59 05:59 Intake Total 2710 Output Total 1650 400 Balance 1060 -[address] - sinus and nasal fracture EKG viewed, my personal interpretation is - NSR, no ST changes - Physical Exam Constitutional: no apparent distress, appears nourished, not in pain Cardiovascular: regular rate and rhythym, no murmur, rub, or gallop Respiratory: no respiratory distress, no rales or rhonchi, clear to auscultation Gastrointestinal: normoactive bowel sounds, soft, non-tender abdomen, no palpable masses Skin: no rashes or abrasions, no fluctuance, no induration Neurologic: AAOx3, weakness (right) Psychiatric: interacting appropriately, not anxious, not encephalopathic, thought process linear ICD10 Worksheet Patient Problems: Problems Problem Status Onset Altered mental status Acute Concussion injury of brain Active Migraine with aura Active Seizure disorder Active flatfoot Active Acute encephalopathy Acute Intracerebral hematoma Acute
--- NOTE | 2018-01-25 16:41 | NEUROPROG ---
Assessment: Total unit time of 25 min. Stable and improved on lower Baclofen Continue Keppra, no new events Hope for inpatient rehab again Still awaiting more strategies of meningioma management Subjective: I reviewed her case. She is doing better and notes not much pain or new concerns. I spoke with her this am in detail. Objective: Vital Signs Temp Pulse Resp BP Pulse Ox 36.5 C 57 L 16 124/81 H 91 L 01/24/18 15:45 01/25/18 15:24 01/25/18 15:24 01/25/18 15:24 01/25/18 15:24 Laboratory Results 01/24/18 04:11 01/24/18 04:11 01/24/18 01/25/18 01/26/18 05:59 05:59 05:59 Intake Total 2710 450 Output Total 1650 1000 Balance 1060 -550 seems close to her baseline aphasia and right side weakness with spasticity Allergies/Adverse Reactions: No Allergies [NKA] Allergy (Verified 12/15/17 09:07)
--- NOTE | 2018-01-25 16:58 | ASMTCMCOM ---
CM Note CM Note Notes: Received call from [facility] and they have rec'd authorization from insurance for pt to go to inpt rehab. They are able to accept pt tomorrow in late morning. Discussed w/RN. Date Signed: 01/25/2018 04:57 PM Electronically Signed By:Abbie Meyer RN
[2018-01-25] MEDS: SENNOSIDES/DOCUSATE SODIUM TAB PO SCH (21:20)
[2018-01-25 23:37] VITALS: TEMP 97.3
[2018-01-26 08:05] VITALS: BP 109/74; PULSE 67; O2SAT 90
[2018-01-26] MEDS: levETIRAcetam 500 MG TAB PO SCH (08:16)
[2018-01-26] MEDS: SENNOSIDES/DOCUSATE SODIUM TAB PO SCH (08:16)
[2018-01-26] MEDS: SERTRALINE HCL 50 MG TAB PO SCH (08:16)
[2018-01-26] MEDS: BACLOFEN 10 MG TAB PO SCH (08:16)
[2018-01-26] MEDS: CARBIDOPA/LEVODOPA 25 MG/100 MG TAB PO SCH ×2 (08:16→11:44)
--- NOTE | 2018-01-26 09:08 | NEUROPROG ---
Assessment: Total unit time of 15 minutes Stable now after series of seizures Encephalopathy improve on lower baclofen dose and will further lower to 10mg TID Continue Dbsujey Going to rehab today Subjective: Pt reports no new problems but still says feels "loopy" and would like to take less baclofen. Objective: Vital Signs Temp Pulse Resp BP Pulse Ox 36.3 C 67 16 109/74 90 L 01/26/18 08:00 01/26/18 08:00 01/26/18 08:00 01/26/18 08:00 01/26/18 08:00 Laboratory Results 01/24/18 04:11 01/24/18 04:11 01/25/18 01/26/18 01/27/18 05:59 05:59 05:59 Intake Total 2710 450 Output Total 1650 1800 700 Balance 1060 -1350 -700 Alert and aphasic and about at her baseline. Allergies/Adverse Reactions: No Allergies [NKA] Allergy (Verified 12/15/17 09:07)
--- NOTE | 2018-01-26 10:16 | PDIAF ---
- Diagnosis Diagnosis: seizure Code Status: Full Code - Medication Management Discharge Medications: Medications to Continue on Transfer Carbidopa/Levodopa 25/100Mg [Sinemet 25/100 MG (*)] 1 tab PO BID 30 Days tab [Last Taken 01/22/18] Carboxymethylcellulose 0.5% [Refresh Plus Drops 0.5%] 1 melissa EACHEYE Q2HRS PRN 30 Days droperette 01/21/18 [Last Taken 01/14/18] Melatonin [Melatonin 3 MG (*)] 3 mg PO HS PRN 30 Days tab 01/21/18 [Last Taken 01/21/18] Sertraline HCl [Zoloft 50mg (*)] 50 mg PO DAILY #30 tab 01/21/18 [Last Taken 08/03] levETIRAcetam [Keppra 500 mg (*)] 1,500 mg PO BID 30 Days tab 01/21/18 [Last Taken 01/21/18 08:30] Carbidopa/Levodopa 25/100Mg [Sinemet 25/100 MG (*)] 0.5 tab PO DAILY@12 [Last Taken 01/22/18] Acetaminophen [Tylenol 325mg (*)] 650 mg PO Q4HRS PRN tab 01/26/18 [Last Taken Unknown] Baclofen [Baclofen 10 mg (*)] 10 mg PO TID tab 01/26/18 [Last Taken Unknown] Polyethylene Glycol 3350 [Miralax 17 gm (*)] 17 gm PO DAILY PRN pkt 01/26/18 [ Last Taken Unknown] Sennosides/Docusate Sodium [Senokot-S] 1 - 2 tab PO BID tab 01/26/18 [Last Taken Unknown] Discharge Medications: Refer to the Discharge Home Medication list for PRN reason. - Orders Services needed: Physical Therapy, Occupational Therapy Isolation Type: None Diet Recommendation: no restrictions on diet Diet Texture: Regular Texture Diet - Follow Up Care Current Providers and Referrals: Patient,NotPresent [Unknown] - As per Instructions
--- NOTE | 2018-01-26 10:24 | GDS ---
[f rep st] DISCHARGE SUMMARY DISCHARGE DIAGNOSES: 1. Seizure. 2. Toxic/metabolic encephalopathy due to above. 3. Facial fractures. 4. History of hemorrhagic cerebrovascular accident with chronic right-sided weakness. 5. Right upper extremity spasticity and contractures. 6. Recurrent meningioma, status post resection and radiation treatment. 7. History of Parkinson's. CONSULTANTS: Yoandy Keenan MD, neurology. HOSPITAL COURSE: By problem: 1. Seizures: The patient presented to the hospital on 01/23/2018 with a fall and altered mental sta tus. She had recently been seen at [facility] for what was suspected to be status epilepticus a nd was initiated on Keppra treatment. While at rehab, she was noted to be lethargic and mildly supra therapeutic on Keppra which was then subsequently held. It is suspected that her seizure was due to holding the Keppra. Neurology has recommended that she resume her current dose of Keppra at 1500 mg twice daily. They also recommended that her home dose of baclofen be decreased from 10 mg q.i.d. to t.i.d. On day of discharge, the patient is agreeable to be discharged to inpatient rehab and has bee n cleared by Neurology. 2. Left inferior nasal bone fracture as well as nondepressed fracture of the anterior wall of the ma xillary sinus with air-fluid levels: Prior to discharge, this finding was discussed with Narendra sotomayor from [facility] who recommended outpatient followup. On day of discharge, the patient is w ithout pain. Her vision and extraocular muscles appear to be intact. PHYSICAL EXAMINATION: VITAL SIGNS: On day of discharge, blood pressure 109/74, pulse 67, respirator y rate 16, O2 saturation 90% on room air. Temperature afebrile. GENERAL: No acute distress. HEART : S1, S2. LUNGS: Clear. ABDOMEN: Soft. EXTREMITIES: No edema. NEURO: Extraocular muscles are intact without entrapment. PERTINENT LABORATORIES AND STUDIES: Done this hospital stay: Cervical spine CT done 01/23/2018: Re armen to report. Head CT done 01/23/2018: Refer to report. DISCHARGE MEDICATIONS: Please refer to discharge medication reconciliation [facility] for details. DISCHARGE INSTRUCTIONS: The patient will be discharged to inpatient rehab where she should continue Keppra at 1500 mg p.o. b.i.d. Once again, her home dose of baclofen was decreased from q.i.d. dosing to t.i.d. dosing. She will need follow up with [facility] to further assess her facial frac tures. Copy requested to: Stephanie ORELLANA /[id number]/MODL
[2018-01-26] MEDS ORDERED: BACLOFEN 10 MG TAB PO SCH (16:00)
== END 2018-01-26 11:53 | DRG 101 ==
LOC: EDUNIT# → OBSVTOIN 18:59 → F3N 19:56
PROVIDERS: ADMIT Hospitalist; ATTEND Family Medicine
DX: G40.401 Other generalized epilepsy and epileptic syndromes, not intractable, with status epilepticus (principal); T42.6X6A Underdosing of other antiepileptic and sedative-hypnotic drugs, initial encounter; S02.2XXA Fracture of nasal bones, initial encounter for closed fracture; S02.40CA Maxillary fracture, right side, initial encounter for closed fracture; S02.40DA Maxillary fracture, left side, initial encounter for closed fracture; Z91.81 History of falling; R53.1 Weakness; R47.1 Dysarthria and anarthria; I69.151 Hemiplegia and hemiparesis following nontraumatic intracerebral hemorrhage affecting right dominant side; M62.838 Other muscle spasm; R26.1 Paralytic gait; G20 Parkinson's disease; G43.909 Migraine, unspecified, not intractable, without status migrainosus; Z86.73 Personal history of transient ischemic attack (TIA), and cerebral infarction without residual deficits; Z86.011 Personal history of benign neoplasm of the brain; Z98.1 Arthrodesis status
CPT/HCPCS: 80177-90; 92507-GN; 92523-GN; 96374; 97112-GO; 97116-GP; 97162-GP; 97166-GO; 97530-GP; 97535-GO; G9162-GN-CK; G9163-GN-CI; J1953

== ENCOUNTER 2018-01-26 12:27 | Inpatient (IN) | payer OTHER ==
[2018-01-26] MEDS ORDERED: CARBOXYMETHYLCELLULOSE 0.5% 0.4 ML DROPERETTE EACHEYE PRN (14:02)
[2018-01-26] MEDS ORDERED: ACETAMINOPHEN 325 MG TAB PO PRN (14:02)
[2018-01-26] MEDS ORDERED: POLYETHYLENE GLYCOL 3350 17 GM PKT PO PRN (14:02)
--- NOTE | 2018-01-26 16:11 | GHP ---
[f rep st] HISTORY AND PHYSICAL POST ADMISSION PHYSICIAN EVALUATION AND REHABILITATION TREATMENT PLAN DATE OF ADMISSION: 01/26/2018 DATE OF EVALUATION: 01/26/2018. TIME OF EVALUATION: 1405. REFERRING FACILITY: [facility]. REFERRING PHYSICIAN: Dr. Parker IMPAIRMENT GROUP: 3.9. DATE OF ONSET: 01/23/2018. CONSULTING PHYSICIANS: She was seen in consultation by General Surgery, Dr. Estes, and Neurology, Dr. Parham. REHABILITATION DIAGNOSIS: Debility status post fall and facial fractures and seizure disorder. ETIOLOGIC DIAGNOSIS: Other neurologic conditions. HISTORY OF PRESENT ILLNESS: This patient had been discharged from inpatient rehabilitation 2 days prior. She suffered a fall while at home and then was noted to have seizure activity. She was brought to the hospital where head CT revealed fractures of the nasal bone and bilateral medial cevallos of the maxillary sinus. There was no other intracranial injury. She had been discharged home on a reduced dose of levetiracetam to 1000 mg b.i.d. from 1500 mg b.i.d. because she was noted to have lethargy while in the inpatient rehabilitation unit, and a levetiracetam level came back slightly elevated at 49 with the upper limit of normal being 45. In the hospital, she was monitored for any signs or symptoms of intracranial bleeding or recurrent seizure. Levetiracetam dose was increased to 1500 mg b.i.d. She was stable and ready to resume rehabilitation. Her baclofen dose had been reduced during her hospitalization. STUDIES AND LABS IN THE HOSPITAL: Head CT results were as discussed above. C- spine was cleared with CT scanning. CBC was initially normal, but subsequently she developed anemia on 01/24/2018, with a hemoglobin of 12.5 and a hematocrit of 37.6. Serum chemistry was within normal limits on two determinations. Troponin level was undetectable. Prolactin was markedly elevated at 69.5 with the upper limit of normal being 18.6. Urinalysis showed trace leukocyte esterase but only 5-10 white blood cells. Culture has grown 4 colony types. PRECAUTIONS: She is a fall risk and she has seizure precautions. ACTIVE COMORBIDITIES: She has the tier 3 comorbidity of hemiparesis. Otherwise , she has no active tier 1, tier 2 or tier 3 comorbidities. PAST MEDICAL HISTORY: 1. Recurrent meningiomas, status post surgery and radiation. 2. Right orbital reconstruction after meningioma treatment. 3. Hemorrhagic CVA. 4. Seizure disorder. 5. 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 6. TIAs and migraines mimicking stroke symptoms. PAST SURGICAL HISTORY: Meningioma surgeries and L4-L5 spinal fusion. SOCIAL HISTORY: She is . She lives with her . works during the day. She does not use tobacco, alcohol, or illicit drugs. FAMILY HISTORY: Noncontributory. MEDICATIONS: PRE-HOSPITAL MEDICATIONS: 1. Carbidopa/levodopa 25/100 one tablet p.o. b.i.d. and 1/2 half tablet p.o. at noon. 2. Refresh Plus eyedrops q.2 hours p.r.n. 3. Melatonin 3 mg p.o. at bedtime. 4. Sertraline 50 mg p.o. daily. 5. Levetiracetam 1000 mg p.o. b.i.d. 6. Baclofen 20 mg p.o. four times daily. ADMISSION MEDICATIONS: 1. Acetaminophen 650 mg p.o. q.4 hours p.r.n. 2. Baclofen 10 mg p.o. t.i.d. 3. Carbidopa/levodopa 25/100 one tablet p.o. b.i.d. and 1/2 tablet p.o. daily at noon. 4. Refresh eyedrops each eye q.2 hours p.r.n. 5. Levetiracetam 1500 mg p.o. b.i.d. 6. Melatonin 3 mg p.o. at bedtime p.r.n. 7. Polyethylene glycol 17 g p.o. daily p.r.n. 8. Senna/docusate 1-2 tabs p.o. b.i.d. 9. Sertraline 50 mg p.o. daily. REVIEW OF SYSTEMS: She complains of facial pain. The pain has interfered with sleep. She denies increased pain with swallowing. She denies cough or dyspnea though she reports that she has some upper respiratory infection symptoms with head congestion. She says she has a chipped tooth from the fall. She reports that she recalls the fall and recalls her coming to help her. She denies nausea, vomiting, constipation, or diarrhea. She denies dysuria or urinary frequency. Otherwise, a 10-point review of systems is negative. PHYSICAL EXAM: VITAL SIGNS: Blood pressure is 117/72, heart rate is 63, respiratory rate is 16, oxygen saturation is 95% on room air, temperature is 36.4 degrees centigrade. Her weight is 69 kg for a body mass index of 23.8. GENERAL: This is a well-nourished, well-developed woman, appears her chronologic age, sitting up in a chair, cooperative, and in no acute distress. HEENT: Extraocular movements are intact. Pupils are equal, round, and reactive to light. She has slight anisocoria with her right pupil slightly larger than her left. Mucous membranes are moist. Dentition is in good condition. There are no oropharyngeal mucosal lesions. She has a moderately crowded airway, Mallampati class 3. NECK: Supple. HEART: There is a regular rate and rhythm with no murmurs, rubs, or gallops. LUNGS: Clear to auscultation bilaterally. ABDOMEN: Soft, nontender, nondistended with normoactive bowel sounds and no hepatosplenomegaly. EXTREMITIES: There is no cyanosis, clubbing, or edema. NEUROLOGIC: She is alert and oriented x3. She is slow to respond. Cranial nerves 2-12 are grossly intact. Right upper extremity has rigidity and is held flexed at the elbow. She does not have rigidity at the wrist. Otherwise, strength overall is 5/5. Sensation is intact to light touch. Deep tendon reflexes are globally hypoactive and particularly difficult to elicit at the right ankle and the right patella. She sits with a right scoliosis. CURRENT LEVEL OF FUNCTION: Per the pre-admission screen regarding diet, feeding , and swallowing she is on a regular diet. For grooming she required sit-up with standby assist and voice cues. For dressing, seated, upper body was done with moderate assistance and voice cues. Lower body was done with maximal assist and voice cues. She was continent of bladder and bowel. She required moderate to maximal assistance for bed mobility from supine to sit. She was able to transfer with minimal to moderate assist with voice cues for sit-to- stand and cues to initiate and sequence. She required moderate to maximal assistance of 2 with voice cues for bed to chair. Seated balance required minimal assistance and standing balance required moderate assistance. Endurance was fair. She ambulated 6 feet with maximal assistance and hand-held assist. She was noted to be unable to open right hand to place on walker. Regarding communication, she was noted to have mild to moderate dysarthria. There are no functional changes noted on today's exam from the pre-admission screen. IMPRESSION: This is a 62-year-old woman with a complicated neurologic history including recurrent meningiomas with surgical excision and radiation therapy, a hemorrhagic cerebrovascular accident in 2013, and resultant increased tone on the right side of the body and deficits to mobility and activities of daily living. She had a successful rehabilitation stay and returned home, however, having had over-sedation, her levetiracetam level was found to be elevated and several doses were held and resumed at a lower dose. She subsequently, after being home 2 days, she fell while bathing and then was noted to have seizure activity. She had a confirmatory markedly elevated prolactin level when she was evaluated in the emergency department. Her baclofen dose was lowered in the hospital to reduce lethargy and her levetiracetam dose was resumed at 1500 mg b.i.d. She has pain from her facial fractures. She is stable and appropriate for inpatient rehabilitation where she will benefit from Physical Therapy and Occupational Therapy regarding mobility and activities of daily living with the goal of achieving modified independence for grooming and eating and assistance of one person for other activities of daily living and mobility tasks. She will have assessment and treatment by Speech and Language Pathology regarding dysarthria and possible cognitive issues. Her goal is to return with her and home care services. She will likely continue to require 24-hour assistance. She will receive therapy with physical therapy, occupational therapy, and speech and language pathology for 60 minutes per day for discipline on 5-7 days for of the week. Expected duration of stay is 5-7 days. It is anticipated that upon discharge, she will continue to benefit from home health services including nurse, speech and language pathologist, a nurse's aide, occupational therapist, and physical therapist. PLAN: 1. Debility with complex neurological history, now status post fall and in need of PT and OT to optimize her function towards return home with 24-hour assistance and needing only one person assist. 2. 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 Assessment and treatment per Speech and Language Pathology. 3. Nasal bone and maxillary sinus wall fractures status post fall. She is discharged from the hospital on acetaminophen 650 mg q.4 hours p.r.n. I will change this to scheduled acetaminophen 1000 mg q.8 hours. 4. Seizure disorder. Continue levetiracetam at 1500 mg b.i.d. There was a levetiracetam level drawn in the emergency department, which is pending. Will follow for the results. However, most likely there is no indication to change her levetiracetam dosing. 5. Spasticity. Baclofen has been reduced considerably from 80 mg per day to 30 mg daily. Observe for worsening of spasticity. If it significantly impairs her ability to progress functionally, will consider increasing baclofen or adding a 2nd agent. She may benefit from botulinum toxin injections. Unclear whether these can be arranged while she is in inpatient rehabilitation. 6. Parkinsonism. Continue carbidopa/levodopa and observe for freezing episodes. The noon dose was added during her recent rehabilitation stay because she had freezing episodes in the afternoon. 7. Prophylaxis. Her mobility deficits are chronic and it is likely that her DVT risk is at baseline. We will not institute pharmacologic DVT prophylaxis. She will have SCDs at night. /[id number]/MODL MTDD
[2018-01-26] MEDS: BACLOFEN 10 MG TAB PO SCH ×2 (17:08→20:50)
[2018-01-26] MEDS: MELATONIN 3 MG TAB PO PRN (20:49)
[2018-01-26] MEDS: CARBIDOPA/LEVODOPA 25 MG/100 MG TAB PO SCH (20:49)
[2018-01-26] MEDS: levETIRAcetam 500 MG TAB PO SCH (20:50)
[2018-01-26] MEDS: SENNOSIDES/DOCUSATE SODIUM TAB PO SCH (20:50)
[2018-01-26] MEDS: ACETAMINOPHEN 500 MG TAB PO SCH (20:51)
[2018-01-27] MEDS: ACETAMINOPHEN 500 MG TAB PO SCH ×3 (06:30→20:38)
[2018-01-27] MEDS: levETIRAcetam 500 MG TAB PO SCH ×2 (08:52→20:37)
[2018-01-27] MEDS: SERTRALINE HCL 50 MG TAB PO SCH (08:53)
[2018-01-27] MEDS: BACLOFEN 10 MG TAB PO SCH ×3 (08:53→20:37)
[2018-01-27] MEDS: CARBIDOPA/LEVODOPA 25 MG/100 MG TAB PO SCH ×3 (08:53→20:37)
[2018-01-27] MEDS: SENNOSIDES/DOCUSATE SODIUM TAB PO SCH ×3 (08:53→20:44)
--- NOTE | 2018-01-27 12:00 | SOAPPROG ---
SOAP Progress Note Assessment/Plan: Assessment: * Debility with complex neurological history, now status post fall and in need of PT and OT to optimize her function towards return home with 24-hour assistance and needing only one person assist. 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 Assessment and treatment per Speech and Language Pathology. * Nasal bone and maxillary sinus wall fractures status post fall. Adequate pain control with acetaminophen scheduled 1000 mg Q 8 hr. * Seizure disorder. Continue levetiracetam at 1500 mg b.i.d. Await levetiracetam level drawn 01/23/2018 in the hospital. As she feels over-sedated once level is available will discuss dosing with Neurology. Consider reducing levetiracetam dose and adding a 2nd agent. * Right shoulder pain. X-ray today, 01/27/2018, is suggestive of right bicipital tendinitis; otherwise no acute abnormalities. Continue acetaminophen. Consider additional pain medications if pain is functionally limiting. * Spasticity. Baclofen has been reduced considerably from 80 mg per day to 30 mg daily. Observe for worsening of spasticity. If it significantly impairs her ability to progress functionally, will consider increasing baclofen or adding a 2nd agent. She may benefit from botulinum toxin injections. Unclear whether these can be arranged while she is in inpatient rehabilitation. * Parkinsonism. Continue carbidopa/levodopa and observe for freezing episodes. The noon dose was added during her recent rehabilitation stay because she had freezing episodes in the afternoon. * Prophylaxis. Her mobility deficits are chronic and it is likely that her DVT risk is at baseline. We will not institute pharmacologic DVT prophylaxis. She will have SCDs at night. Plan to discharge home with her and 24 hr care. Anticipated length of stay is approximately 7 days for discharge of 02/02/2018. 01/27/18 14:51 Subjective: Feels sleepy and thinks that the levetiracetam dose might be doing it. Complains of right shoulder pain and thinks she fell on that shoulder. Objective: Vital Signs Temp Pulse Resp BP Pulse Ox 36.4 C 56 L 14 118/79 92 01/27/18 08:00 01/27/18 08:00 01/27/18 08:00 01/27/18 08:00 01/27/18 08:00 01/26/18 01/27/18 01/28/18 05:59 05:59 05:59 Output Total 600 Balance -600 Physical Exam - Physical Exam General Appearance: WD/WN, alert, no apparent distress Respiratory: No respiratory distress, No accessory muscle use Skin: normal color, warm/dry Extremities: other (Right distal posterior acromion with tenderness.) Neuro/Psych: alert, normal mood/affect, oriented x 3, abnormal gait (With front wheeled walker, flexed posture, ataxic especially right lower extremity, narrow base, slow), motor weakness (Marked spasticity right elbow), cognition abnormalities (Slow processing), speech abnormalities ICD10 Worksheet Patient Problems: Problems Problem Status Onset Concussion injury of brain Active Migraine with aura Active Seizure disorder Active flatfoot Active Acute encephalopathy Acute Altered mental status Acute Intracerebral hematoma Acute
[2018-01-27] MEDS: MELATONIN 3 MG TAB PO PRN (20:37)
[2018-01-28] MEDS: ACETAMINOPHEN 500 MG TAB PO SCH ×3 (05:44→21:14)
[2018-01-28] MEDS: BACLOFEN 10 MG TAB PO SCH ×3 (08:42→21:14)
[2018-01-28] MEDS: SENNOSIDES/DOCUSATE SODIUM TAB PO SCH ×2 (08:42→20:04)
[2018-01-28] MEDS: levETIRAcetam 500 MG TAB PO SCH ×2 (08:42→20:00)
[2018-01-28] MEDS: CARBIDOPA/LEVODOPA 25 MG/100 MG TAB PO SCH ×3 (08:42→20:03)
[2018-01-28] MEDS: SERTRALINE HCL 50 MG TAB PO SCH (08:42)
--- NOTE | 2018-01-28 14:38 | SOAPPROG ---
SOAP Progress Note Assessment/Plan: Assessment: * Debility with complex neurological history, now status post fall and in need of PT and OT to optimize her function towards return home with 24-hour assistance and needing only one person assist. 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 Assessment and treatment per Speech and Language Pathology. * Nasal bone and maxillary sinus wall fractures status post fall. Adequate pain control with acetaminophen scheduled 1000 mg Q 8 hr. * Seizure disorder. Continue levetiracetam at 1500 mg b.i.d. No longer feeling over-sedated as of 01/28/2018. Will not consider reducing levetiracetam dose. * Right shoulder pain. X-ray 01/27/2018, is suggestive of right bicipital tendinitis; otherwise no acute abnormalities. Exam today 01/28/2018 is consistent with possible acromioclavicular joint pain however the no separation was seen on imaging. Will add prn naproxen. Continue acetaminophen. * Spasticity. Baclofen has been reduced considerably from 80 mg per day to 30 mg daily. Observe for worsening of spasticity. If it significantly impairs her ability to progress functionally, will consider increasing baclofen or adding a 2nd agent. She may benefit from botulinum toxin injections. Unclear whether these can be arranged while she is in inpatient rehabilitation. * Parkinsonism. Continue carbidopa/levodopa and observe for freezing episodes. The noon dose was added during her recent rehabilitation stay because she had freezing episodes in the afternoon. * Prophylaxis. Her mobility deficits are chronic and it is likely that her DVT risk is at baseline. We will not institute pharmacologic DVT prophylaxis. She will have SCDs at night. Plan to discharge home with her and 24 hr care. Anticipated length of stay is approximately 7 days for discharge of 02/02/2018. 01/28/18 14:36 Subjective: Feeling less sleepy today. Still has right shoulder. She does not feel that an increase in spasticity or tone might be contributing to shoulder pain. Objective: Vital Signs Temp Pulse Resp BP Pulse Ox 36.3 C 56 L 18 118/74 93 01/28/18 08:00 01/28/18 08:00 01/28/18 08:00 01/28/18 08:00 01/28/18 08:00 01/27/18 01/28/18 01/29/18 05:59 05:59 05:59 Intake Total 600 286 Output Total 600 Balance -600 600 286 Physical Exam - Physical Exam General Appearance: WD/WN, alert, no apparent distress Respiratory: No respiratory distress, No accessory muscle use Skin: normal color, warm/dry Extremities: other (Right shoulder with tenderness over acromioclavicular joint) Neuro/Psych: normal mood/affect, oriented x 3 ICD10 Worksheet Patient Problems: Problems Problem Status Onset Concussion injury of brain Active Migraine with aura Active Seizure disorder Active flatfoot Active Acute encephalopathy Acute Altered mental status Acute Intracerebral hematoma Acute
--- NOTE | 2018-01-28 14:39 | PDOREHIP ---
Admission [facility] - Admission - 3 Day Assessment Period Admission Date/Day 1: 01/26/18 Day 2: 01/27/18 Day 3: 01/28/18 - Active Diagnoses Comorbidities and Co-existing Conditions at Admission: 43028. None of the Above - Skin Conditions Unhealed Pressure Ulcer (1 or more/Stage 1 or >)-Admission: 0. No Discharge [facility] - Discharge - 3 Day Assessment Period 2 Days Prior to Anticipated Discharge Date: 01/31/18 1 Day Prior to Anticipated Discharge Date: 02/01/18 Anticipated Discharge Date: 02/02/18
[2018-01-28] MEDS: NAPROXEN SODIUM 220 MG TAB PO PRN (20:03)
[2018-01-29] MEDS: ACETAMINOPHEN 500 MG TAB PO SCH ×3 (06:31→20:55)
[2018-01-29] MEDS: CARBIDOPA/LEVODOPA 25 MG/100 MG TAB PO SCH ×5 (08:18→20:54)
[2018-01-29] MEDS: SERTRALINE HCL 50 MG TAB PO SCH (08:19)
[2018-01-29] MEDS: levETIRAcetam 500 MG TAB PO SCH ×2 (08:19→20:53)
[2018-01-29] MEDS: BACLOFEN 10 MG TAB PO SCH ×3 (08:19→20:54)
[2018-01-29] MEDS: SENNOSIDES/DOCUSATE SODIUM TAB PO SCH ×2 (08:37→20:54)
--- NOTE | 2018-01-29 12:26 | SOAPPROG ---
SOAP Progress Note Assessment/Plan: Assessment: * Debility with complex neurological history, now status post fall and in need of PT and OT to optimize her function towards return home with 24-hour assistance and needing only one person assist. * Initial functional independence measure 61 on 01/29/2018. Requires assist of 2 for transfers at night. She was up x1 to void. Requires moderate assist of 1 for transfers otherwise. Often she could transfer with minimal assist. She ambulated 50 ft with minimal to moderate assist using a front walker. She does grooming and hygiene seated independently. Upper body dressing requires setup, lower body dressing requires moderate assistance for balance. She requires moderate assistance for shower and toilet transfers, contact guard assist for bathing, and moderate to maximal assist for balance with toileting. * Continue PT and OT. * Expressive and receptive aphasia and cognitive impairment. Noted to have decreased memory, problem solving and insight. No martínez dysphagia but on DD 2 textured due to pain with chewing. * Continue [employer]ACHINE [employer]EDER. * Nasal bone and maxillary sinus wall fractures status post fall. Adequate pain control with acetaminophen scheduled 1000 mg Q 8 hr. * Seizure disorder. Continue levetiracetam at 1500 mg b.i.d. No longer feeling over-sedated as of 01/28/2018. Will not consider reducing levetiracetam dose. * Right shoulder pain. X-ray 01/27/2018, is suggestive of right bicipital tendinitis; otherwise no acute abnormalities. Exam today 01/28/2018 is consistent with possible acromioclavicular joint pain however the no separation was seen on imaging. Added prn naproxen on 01/28/2018. Continue acetaminophen. * Spasticity. Baclofen has been reduced considerably from 80 mg per day to 30 mg daily. Observe for worsening of spasticity. If it significantly impairs her ability to progress functionally, will consider increasing baclofen or adding a 2nd agent. She may benefit from botulinum toxin injections. Unclear whether these can be arranged while she is in inpatient rehabilitation. * Parkinsonism. Continue carbidopa/levodopa and observe for freezing episodes. The noon dose was added during her recent rehabilitation stay because she had freezing episodes in the afternoon. * Prophylaxis. Her mobility deficits are chronic and it is likely that her DVT risk is at baseline. We will not institute pharmacologic DVT prophylaxis. She will have SCDs at night. Attended staffing, 15 min. Discussed with case management, nursing, PT, OT, [employer] MACHINE [employer]EDER. Plan to discharge home with her and 24 hr care, but he cannot provide 24 hr care, recommend discharge to facility. With current level of function would be a [facility] facility.. Anticipated length of stay is approximately 7 days for discharge of 02/02/2018. Follow-up [facility] regarding facial fractures after discharge. 01/29/18 12:22 Subjective: [place] like her thinking is slower today says she slept okay. Does not know why she might be feeling slower. Slept well. Pain is adequately controlled. She wonders if maybe she had a seizure this morning but no seizure activity has been noted by staff and there was no loss of bowel or bladder control. Objective: Vital Signs Temp Pulse Resp BP Pulse Ox 36.5 C 56 L 14 124/72 H 94 01/29/18 06:42 01/29/18 06:42 01/29/18 06:42 01/29/18 06:42 01/29/18 06:42 01/28/18 01/29/18 01/30/18 05:59 05:59 05:59 Intake Total 600 926 358 Output Total 101 Balance 600 926 257 - Time Spent With Patient Time Spent With Patient: Greater than 35 min floor time today, including more than 50% of time in coordination of care during staffing meeting, and counseling patient and . Physical Exam - Physical Exam General Appearance: WD/WN, alert, no apparent distress Respiratory: normal breath sounds, No crackles, No rhonchi, No wheezing Cardiac/Chest: regular rate, rhythm, No diastolic murmur, No systolic murmur Skin: normal color, warm/dry Neuro/Psych: alert, normal mood/affect, oriented x 3, aphasia (Word-finding difficulty), cognition abnormalities (Slow processing) ICD10 Worksheet Patient Problems: Problems Problem Status Onset Concussion injury of brain Active Migraine with aura Active Seizure disorder Active flatfoot Active Acute encephalopathy Acute Altered mental status Acute Intracerebral hematoma Acute
[2018-01-29] MEDS: NAPROXEN SODIUM 220 MG TAB PO PRN (15:05)
[2018-01-29] MEDS: MELATONIN 3 MG TAB PO PRN (20:57)
[2018-01-30] MEDS: ACETAMINOPHEN 500 MG TAB PO SCH ×3 (05:32→20:45)
[2018-01-30] MEDS: NAPROXEN SODIUM 220 MG TAB PO PRN ×2 (05:45→14:52)
[2018-01-30] MEDS: SERTRALINE HCL 50 MG TAB PO SCH (08:31)
[2018-01-30] MEDS: SENNOSIDES/DOCUSATE SODIUM TAB PO SCH ×2 (08:31→20:35)
[2018-01-30] MEDS: levETIRAcetam 500 MG TAB PO SCH ×2 (08:32→20:35)
[2018-01-30] MEDS: BACLOFEN 10 MG TAB PO SCH ×3 (08:32→20:45)
[2018-01-30] MEDS: CARBIDOPA/LEVODOPA 25 MG/100 MG TAB PO SCH ×3 (08:32→20:35)
--- NOTE | 2018-01-30 14:18 | SOAPPROG ---
SOAP Progress Note Assessment/Plan: Assessment: 62yo Woman with Debility 2/2 complex neurological history, now status post fall and in need of PT and OT to optimize her function towards return home with 24- hour assistance and needing only one person assist. * Initial functional independence measure 61 on 01/29/2018. Requires assist of 2 for transfers at night. She was up x1 to void. Requires moderate assist of 1 for transfers otherwise. Often she could transfer with minimal assist. She ambulated 50 ft with minimal to moderate assist using a front walker. She does grooming and hygiene seated independently. Upper body dressing requires setup, lower body dressing requires moderate assistance for balance. She requires moderate assistance for shower and toilet transfers, contact guard assist for bathing, and moderate to maximal assist for balance with toileting. * Continue PT and OT. * Expressive and receptive aphasia and cognitive impairment. Noted to have decreased memory, problem solving and insight. No martínez dysphagia but on DD 2 textured due to pain with chewing, Continue [employer]. * Nasal bone and maxillary sinus wall fractures status post fall. Adequate pain control with acetaminophen scheduled 1000 mg Q 8 hr. * Seizure disorder. Continue levetiracetam at 1500 mg b.i.d. No longer feeling over-sedated as of 01/28/2018. Will not consider reducing levetiracetam dose. * Right shoulder pain. X-ray 01/27/2018, is suggestive of right bicipital tendinitis; otherwise no acute abnormalities. Exam today 01/28/2018 is consistent with possible acromioclavicular joint pain however the no separation was seen on imaging. Added prn naproxen on 01/28/2018. Continue acetaminophen. * Spasticity. Baclofen has been reduced considerably from 80 mg per day to 30 mg daily. Observe for worsening of spasticity. If it significantly impairs her ability to progress functionally, will consider increasing baclofen or adding a 2nd agent. She may benefit from botulinum toxin injections. Unclear whether these can be arranged while she is in inpatient rehabilitation. * Parkinsonism. Continue carbidopa/levodopa and observe for freezing episodes. The noon dose was added during her recent rehabilitation stay because she had freezing episodes in the afternoon. * Prophylaxis. Her mobility deficits are chronic and it is likely that her DVT risk is at baseline. We will not institute pharmacologic DVT prophylaxis. She will have SCDs at night. 01/29/18 12:22 Subjective: No new problems or C/O's. No F/C/CP/SOB/N/V/D/C Plan: Cont Dr [facility] rehab treatment plan 01/30/18 14:15 Objective: Vital Signs Temp Pulse Resp BP Pulse Ox 36.7 C 61 15 105/64 93 01/30/18 06:41 01/30/18 06:41 01/30/18 06:41 01/30/18 06:41 01/30/18 06:41 01/29/18 01/30/18 01/31/18 05:59 05:59 05:59 Intake Total 926 843 660 Output Total 100 Balance 926 743 660 Physical Exam - Physical Exam General Appearance: alert, no apparent distress Neck: No full range of motion Respiratory: lungs clear Cardiac/Chest: regular rate, rhythm Abdomen: normal bowel sounds, soft Skin: normal color, warm/dry Neuro/Psych: alert, oriented x 3, abnormal gait, aphasia, motor weakness, sensory deficit, cognition abnormalities, other (No acute changes) ICD10 Worksheet Patient Problems: Problems Problem Status Onset Concussion injury of brain Active Migraine with aura Active Seizure disorder Active flatfoot Active Acute encephalopathy Acute Altered mental status Acute Intracerebral hematoma Acute
[2018-01-30] MEDS: MELATONIN 3 MG TAB PO PRN (20:35)
[2018-01-31] MEDS: ACETAMINOPHEN 500 MG TAB PO SCH ×3 (05:44→20:36)
[2018-01-31] MEDS: levETIRAcetam 500 MG TAB PO SCH ×2 (10:02→20:36)
[2018-01-31] MEDS: CARBIDOPA/LEVODOPA 25 MG/100 MG TAB PO SCH ×3 (10:02→20:36)
[2018-01-31] MEDS: NAPROXEN SODIUM 220 MG TAB PO PRN ×2 (10:03→16:24)
[2018-01-31] MEDS: SENNOSIDES/DOCUSATE SODIUM TAB PO SCH ×2 (10:03→20:36)
[2018-01-31] MEDS: BACLOFEN 10 MG TAB PO SCH ×3 (10:03→20:36)
[2018-01-31] MEDS: SERTRALINE HCL 50 MG TAB PO SCH (10:03)
--- NOTE | 2018-01-31 12:01 | SOAPPROG ---
SOAP Progress Note Assessment/Plan: Assessment: 62yo Woman with Debility 2/2 complex neurological history, now status post fall and in need of PT and OT to optimize her function towards return home with 24- hour assistance and needing only one person assist. * Initial functional independence measure 61 on 01/29/2018. Requires assist of 2 for transfers at night. She was up x1 to void. Requires moderate assist of 1 for transfers otherwise. Often she could transfer with minimal assist. She ambulated 50 ft with minimal to moderate assist using a front walker. She does grooming and hygiene seated independently. Upper body dressing requires setup, lower body dressing requires moderate assistance for balance. She requires moderate assistance for shower and toilet transfers, contact guard assist for bathing, and moderate to maximal assist for balance with toileting. * Continue PT and OT. * Expressive and receptive aphasia and cognitive impairment. Noted to have decreased memory, problem solving and insight. 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 * Nasal bone and maxillary sinus wall fractures status post fall. Adequate pain control with acetaminophen scheduled 1000 mg Q 8 hr. * Seizure disorder. Continue levetiracetam at 1500 mg b.i.d. No longer feeling over-sedated as of 01/28/2018. Will not consider reducing levetiracetam dose. * Right shoulder pain. X-ray 01/27/2018, is suggestive of right bicipital tendinitis; otherwise no acute abnormalities. Exam today 01/28/2018 is consistent with possible acromioclavicular joint pain however the no separation was seen on imaging. Added prn naproxen on 01/28/2018. Continue acetaminophen. * Spasticity. Baclofen has been reduced considerably from 80 mg per day to 30 mg daily. Observe for worsening of spasticity. If it significantly impairs her ability to progress functionally, will consider increasing baclofen or adding a 2nd agent. She may benefit from botulinum toxin injections. Unclear whether these can be arranged while she is in inpatient rehabilitation. * Parkinsonism. Continue carbidopa/levodopa and observe for freezing episodes. The noon dose was added during her recent rehabilitation stay because she had freezing episodes in the afternoon. * Prophylaxis. Her mobility deficits are chronic and it is likely that her DVT risk is at baseline. We will not institute pharmacologic DVT prophylaxis. She will have SCDs at night. 01/29/18 12:22 Subjective: Daily update: No new problems or C/O's. Extremely fatigued. Participating in therapies. No F/C/CP/SOB/N/V/D/C Plan: Cont Dr Pritchard's rehab treatment plan 01/31/18 11:59 Objective: Vital Signs Temp Pulse Resp BP Pulse Ox 36.4 C 61 16 110/77 96 01/31/18 06:52 01/31/18 06:52 01/31/18 06:52 01/31/18 06:52 01/31/18 06:52 01/30/18 01/31/18 02/01/18 05:59 05:59 05:59 Intake Total 843 1200 Output Total 100 550 1 Balance 743 650 -1 Physical Exam - Physical Exam General Appearance: alert, no apparent distress Respiratory: lungs clear Cardiac/Chest: regular rate, rhythm Abdomen: normal bowel sounds, soft Back: No Normal inspection Skin: normal color, warm/dry Neuro/Psych: alert, oriented x 3, abnormal gait, aphasia, motor weakness, sensory deficit, cognition abnormalities, other (No acute changes) ICD10 Worksheet Patient Problems: Problems Problem Status Onset Concussion injury of brain Active Migraine with aura Active Seizure disorder Active flatfoot Active Acute encephalopathy Acute Altered mental status Acute Intracerebral hematoma Acute
[2018-01-31] MEDS: MELATONIN 3 MG TAB PO PRN (20:47)
[2018-02-01] MEDS: NAPROXEN SODIUM 220 MG TAB PO PRN ×3 (05:23→19:22)
[2018-02-01] MEDS: ACETAMINOPHEN 500 MG TAB PO SCH ×3 (05:23→20:30)
[2018-02-01] MEDS: SERTRALINE HCL 50 MG TAB PO SCH (08:34)
[2018-02-01] MEDS: CARBIDOPA/LEVODOPA 25 MG/100 MG TAB PO SCH ×3 (08:34→20:23)
[2018-02-01] MEDS: SENNOSIDES/DOCUSATE SODIUM TAB PO SCH ×2 (08:34→20:22)
[2018-02-01] MEDS: levETIRAcetam 500 MG TAB PO SCH ×2 (08:35→20:22)
[2018-02-01] MEDS: BACLOFEN 10 MG TAB PO SCH ×3 (08:36→20:31)
--- NOTE | 2018-02-01 13:07 | SOAPPROG ---
SOAP Progress Note Assessment/Plan: Assessment: * Debility with complex neurological history, status post fall on 01/23/2018 and in need of PT and OT to optimize her function towards return home with 24-hour assistance and needing only one person assist. * Initial functional independence measure 61 on 01/29/2018. Assist of 2 for transfers at night per nursing, though PT reports she can do 1-person assist transfer. She was up x1 to void. Requires moderate assist of 1 for transfers otherwise. Often she could transfer with minimal assist. She ambulated 50 ft with minimal to moderate assist using a front walker. She does grooming and hygiene seated independently. Upper body dressing requires setup, lower body dressing requires moderate assistance for balance. She requires moderate assistance for shower and toilet transfers, contact guard assist for bathing, and moderate to maximal assist for balance with toileting. * Continue PT and OT. * Expressive and receptive aphasia and cognitive impairment. Noted to have decreased memory, problem solving and insight. No martínez dysphagia but on DD 2 textured due to pain with chewing. * Continue [employer]. * Nasal bone and maxillary sinus wall fractures status post fall. Adequate pain control with acetaminophen scheduled 1000 mg Q 8 hr. * Seizure disorder. Continue levetiracetam at 1500 mg b.i.d. No longer feeling over-sedated as of 01/28/2018. Will not consider reducing levetiracetam dose. * Right shoulder pain. X-ray 01/27/2018, is suggestive of right bicipital tendinitis; otherwise no acute abnormalities. Exam 01/28/2018 is consistent with possible acromioclavicular joint pain however the no separation was seen on imaging. Added prn naproxen on 01/28/2018. Continue acetaminophen. * Spasticity. Baclofen has been reduced considerably from 80 mg per day to 30 mg daily. She may benefit from botulinum toxin injections. * Parkinsonism. Continue carbidopa/levodopa and observe for freezing episodes. The noon dose was added during her recent rehabilitation stay because she had freezing episodes in the afternoon. * Prophylaxis. Her mobility deficits are chronic and it is likely that her DVT risk is at baseline. We will not institute pharmacologic DVT prophylaxis. She will have SCDs at night. Discharge tomorrow, 02/02/2018, with 24 hr assistance per and hired caregivers.. Follow-up [facility] regarding facial fractures after discharge. 02/01/18 13:03 Subjective: No complaints. Sleeping well. Bowels moving. Enthusiastic about discharge home tomorrow. When asked she reports that she thinks she has increased spasticity of the right upper extremity especially in the wrists, however she prefers to tolerate the spasticity and avoid the sedation of the higher doses of baclofen. She has some right shoulder pain still. Objective: Vital Signs Temp Pulse Resp BP Pulse Ox 36.5 C 54 L 15 116/67 92 02/01/18 06:26 02/01/18 06:26 02/01/18 06:26 02/01/18 06:26 02/01/18 06:26 01/31/18 02/01/18 02/02/18 05:59 05:59 05:59 Intake Total 1200 590 240 Output Total 550 1 Balance 650 589 240 Physical Exam - Physical Exam General Appearance: WD/WN, alert, no apparent distress Respiratory: No respiratory distress, No accessory muscle use Skin: normal color, warm/dry Neuro/Psych: alert, normal mood/affect, oriented x 3, motor weakness (Right upper extremity with close to normal range of motion at the elbow and shoulder. Flexion contracture at the wrist. Moves slowly.) ICD10 Worksheet Patient Problems: Problems Problem Status Onset Concussion injury of brain Active Migraine with aura Active Seizure disorder Active flatfoot Active Acute encephalopathy Acute Altered mental status Acute Intracerebral hematoma Acute
--- NOTE | 2018-02-01 13:19 | PDOREHIP ---
Admission [facility] - Admission - 3 Day Assessment Period Admission Date/Day 1: 01/26/18 Day 2: 01/27/18 Day 3: 01/28/18 Discharge [facility] - Discharge - 3 Day Assessment Period 2 Days Prior to Anticipated Discharge Date: 01/31/18 1 Day Prior to Anticipated Discharge Date: 02/01/18 Anticipated Discharge Date: 02/02/18 - Discharge Skin Conditions Unhealed Pressure Ulcer (1 or more/Stage 1 or >)-Discharge: 0. No
[2018-02-01] MEDS: MELATONIN 3 MG TAB PO PRN (20:29)
[2018-02-01 21:06] VITALS: RESP 16
[2018-02-02] MEDS: NAPROXEN SODIUM 220 MG TAB PO PRN ×2 (02:51→13:01)
[2018-02-02] MEDS: ACETAMINOPHEN 500 MG TAB PO SCH (05:49)
[2018-02-02 06:25] VITALS: BP 115/73; PULSE 61; TEMP 97.5; O2SAT 95
[2018-02-02] MEDS: levETIRAcetam 500 MG TAB PO SCH (09:02)
[2018-02-02] MEDS: CARBIDOPA/LEVODOPA 25 MG/100 MG TAB PO SCH ×2 (09:02→12:30)
[2018-02-02] MEDS: BACLOFEN 10 MG TAB PO SCH (09:02)
[2018-02-02] MEDS: SENNOSIDES/DOCUSATE SODIUM TAB PO SCH (09:02)
[2018-02-02] MEDS: SERTRALINE HCL 50 MG TAB PO SCH (09:02)
--- NOTE | 2018-02-02 09:07 | PDDCSUM ---
Discharge Summary Discharge Summary: Name: Abbie Alamo Admission date: 01/26/2018 Discharge date: Today, 02/02/2018 Discharging physician: Sam Chung MD, Kevin Pritchard MD Admitting diagnosis: 3.9, functional impairments status post fall and facial fractures complicated by seizure disorder Discharge diagnosis: Same Comorbid diagnoses: Right-sided hemiplegia, aphasia, cognitive impairment, nasal bone and maxillary sinus wall fractures status post fall, seizure disorder , right shoulder pain status post fall, spasticity, parkinsonism Consultations: physical therapy, occupational therapy, speech language pathology , social work Procedures: X-ray on 01/27/2018 status post fall showed no no acromial abnormalities, consider MRI if symptoms persist. There is a right-sided 6th rib fracture which age was indeterminate. Bicipital groove hypertrophy suggestive of chronic biceps tendinopathy. Reason for admission: Please see the full history and physical from 01/26/[address] Pritchard for full details. Briefly, this is a follow-up rehabilitation admission as she had recently been discharged home from inpatient rehabilitation. At home, she had a fall in the shower when her was not with her, noted later to have seizure activity. She was brought to the hospital where she was found to have fracture of the nasal bone and bilateral medial cevallos of the maxillary sinus with no other new intracranial injury. In the hospital she had no recurrent symptoms of intracranial bleeding or seizure. She was put on a dose of levetiracetam 1500 mg twice a day, and had functional impairments consistent with goals for inpatient rehabilitation. Rehabilitation course: She made slow and steady progress during rehabilitation with a discharge FIM of approximately 77. The goal was to make her sufficiently independent that she could go home with home care assistance as well as 24 hr supervision including about from her . On discharge, she understood that it was a vital importance that she had 24 hr supervision at all times. She was performing hygiene with standby assistance from a wheelchair level, some assistance was necessary for dressing. She needed moderate assistance for transfers and bed mobility, implementing squat pivot transfers. She used a wheelchair for mobility in use a right-sided AFO which she had premorbidly. She also uses a front wheel walker and a right-sided resting hand splint at night. She had no medical complications during her rehabilitation course, but was somewhat limited by right-sided shoulder pain. X-ray was negative of acute fracture but suggestive of a chronic right bicipital tendinosis. Plan is for her to follow up with her primary care physician for additional treatment and potential MRI if symptoms persist. Her spasticity is present and likely functionally limiting at baclofen 30 mg per day, limited by her cognitive impairments. She may likely benefit from target Botox injections in the right upper limb. Carbidopa/levodopa was continued and no known dose was added during her recent rehabilitation course because of afternoon freezing episodes. Discharge plan: Plan to discharge home with family assistance as well as [facility]. She needs 24 hr supervision for safety and assistance with functional impairments. She expressed understanding in this is been emphasized to her and her family throughout this rehabilitation course. She will continue with outpatient occupational therapy and physical therapy. Medications at discharge: Naproxen 220 mg orally 3 times a day as needed Carb Oxy methylcellulose 0.5% 1 application to each eye every 2 hr as needed Melatonin 3 mg orally at bedtime as needed for insomnia Senna/docusate 1-2 tabs orally twice daily MiraLax 17 g orally daily as needed Acetaminophen 650 mg orally every 4 hr as needed Baclofen 10 mg orally 3 times a day Carbidopa/levodopa 25/100 1 tab orally twice daily Carbidopa/levodopa 25/100 mg 0.5 tabs orally daily at noon Levetiracetam 1500 mg orally twice daily Sertraline 50 mg orally daily Pending studies: None Issues to be addressed at follow-up: Patient will be following up for facial fractures with Otolaryngology, and will need follow up with primary care physician for ongoing monitoring of the right-sided shoulder pain. Consider follow-up with physiatry functional issues, spasticity management, and right- sided shoulder pain Follow up: As noted above, will follow-up with Otolaryngology, neurology, primary care physician. Consider follow up with physiatry. I meeting the patient for the 1st time today to assist with this discharge summary. A total of 40 min was spent on the floor in the care of the patient for discharge planning and coordination today. I met with the patient and answered questions. Right shoulder pain has been present since the time of her fall, imaging negative for fracture, she has diffuse shoulder pain on exam and limited range of motion in all planes suggestive of possible adhesive capsulitis versus rotator cuff injury. Consider follow-up MRI with primary care physician after discharge.
== END 2018-02-02 15:27 | disposition home health service (06) | DRG 101 ==
LOC: BREH 12:27
PROVIDERS: ADMIT Internal Medicine; ATTEND Internal Medicine
PROC: F07M3ZZ Motor Function Treatment of Musculoskeletal System - Whole Body (ICD-10-PCS; principal; 2018-01-26)
PROC: F0636ZZ Communicative/Cognitive Integration Skills Treatment of Neurological System - Whole Body (ICD-10-PCS; principal; 2018-01-26)
PROC: F08Z7ZZ Vocational Activities and Functional Community or Work Reintegration Skills Treatment (ICD-10-PCS; principal; 2018-01-26)
DX: G40.401 Other generalized epilepsy and epileptic syndromes, not intractable, with status epilepticus (principal); S02.2XXD Fracture of nasal bones, subsequent encounter for fracture with routine healing; S02.40CD Maxillary fracture, right side, subsequent encounter for fracture with routine healing; S02.40DD Maxillary fracture, left side, subsequent encounter for fracture with routine healing; W18.2XXD Fall in (into) shower or empty bathtub, subsequent encounter; Z91.81 History of falling; R53.81 Other malaise; R47.1 Dysarthria and anarthria; I69.151 Hemiplegia and hemiparesis following nontraumatic intracerebral hemorrhage affecting right dominant side; M62.838 Other muscle spasm; R26.1 Paralytic gait; G20 Parkinson's disease; G43.909 Migraine, unspecified, not intractable, without status migrainosus; Z86.73 Personal history of transient ischemic attack (TIA), and cerebral infarction without residual deficits; Z86.011 Personal history of benign neoplasm of the brain; Z98.1 Arthrodesis status
CPT/HCPCS: 92507-GN; 92522-GN; 97110-GO; 97110-GP; 97112-GO; 97112-GP; 97116-GP; 97140-GO; 97163-GP; 97166-GO; 97530-GO; 97530-GP; 97535-GO

== ENCOUNTER 2018-10-26 09:52 | Observation (INO) | payer OTHER ==
--- NOTE | 2018-10-26 09:42 | EDPHY ---
H & P Time Seen by Provider: 10/26/18 09:49 Constitutional: Initial Vital Signs Temperature (C) 36.1 C 10/26/18 10:13 Heart Rate 65 10/26/18 10:13 Respiratory Rate 18 10/26/18 10:13 Blood Pressure 115/78 10/26/18 10:13 O2 Sat (%) 93 10/26/18 10:13 O2 Delivery Mode Room Air Allergies/Adverse Reactions: No Allergies [NKA] Allergy (Verified 10/26/18 10:13) Home Medications: Medication Instructions Recorded Carboxymethylcellulose 0.5% 1 melissa EACHEYE Q2HRS PRN 30 Days 01/21/18 [Refresh Plus Drops 0.5%] droperette Baclofen [Baclofen 10 mg (*)] 10 mg PO TID #90 tab 02/01/18 Carbidopa/Levodopa 25/100Mg 0.5 tab PO DAILY@12 #15 tab 02/01/18 [Sinemet 25/100 MG (*)] Carbidopa/Levodopa 25/100Mg 1 tab PO BID 30 Days #60 tab 02/01/18 [Sinemet 25/100 MG (*)] Sertraline HCl [Zoloft 50mg (*)] 50 mg PO DAILY #30 tab 02/01/18 levETIRAcetam [Keppra 500 mg (*)] 1,500 mg PO BID 30 Days #180 tab 02/01/18 Medical Decision Making - Diagnostics Imaging Results: Imaging Impressions Chest X-Ray 10/26/18 09:54 Impression: Negative. Head CT 10/26/18 09:55 Impression: 1. Large areas of encephalomalacia involving bilateral parietal lobes and left frontal lobe possibly postsurgical or secondary to old trauma or infarcts. 2. No acute hemorrhage, hydrocephalus, or mass effect. 3. Cerebrovascular atherosclerosis. 4. No definite acute infarct. 5. Mild microvascular ischemic gliosis. 6. Partially calcified left intraorbital mass probably representing partially calcified meningioma, similar to prior study. 7. Consider MRI of the brain, if there is continued clinical concern. Findings and recommendations discussed with Emergency Department physician insurance claims assistant, Janet Nicole PA-C at 1005 hours, 10/26/2018. Final report concurs with initial preliminary interpretation. Head CTA 10/26/18 09:55 Impression: 1. No carotid atherosclerotic disease, flow-limiting stenosis, occlusion, or dissection. 2. Patent bilateral vertebral arteries with a dominant right vertebral artery. Measurement of carotid stenosis is based on the residual internal carotid diameter with [place] Symptomatic Carotid Endarterectomy Trial (NASCET) based stenosis levels. CT Angiogram of the Brain Clinical Indications: Stroke alert, weakness, prior strokes. Prior meningioma resections. Technique: CT angiogram of the brain and neck was performed with the uneventful intravenous administration of 85 mL Isovue-370 contrast. Multiplanar reconstructions including 3D reconstructions performed and evaluated on Vitrea workstation in order to better evaluate the [place] vessels. Images were manipulated by the radiologist at the computer workstation. Dose reduction techniques were utilized. Findings: Major vessels of the [place] are adequately displayed, demonstrating no evidence of aneurysm, vascular malformation, flow-limiting stenosis, or occlusion. Bilateral cavernous internal carotid arteries and vertebrobasilar system demonstrates no evidence of flow-limiting stenosis, aneurysm, occlusion, or dissection. Minimal flow in the superior sagittal sinus probably secondary to chronic thrombosis from previous bilateral parietal parafalcine meningioma resections and multiple prior bilateral craniotomies. Impression: 1. No evidence of flow-limiting stenosis, occlusion, or dissection of the [place] vessels. 2. No definite cerebral aneurysms. 3. Minimal flow in the superior sagittal sinus secondary to probable chronic occlusion from multiple prior surgeries. Findings and recommendations discussed with Emergency Department physician, Walter Massey MD at 1017 hours, 10/26/2018. Final report concurs with initial preliminary interpretation. Neck CTA 10/26/18 09:55 Impression: 1. No carotid atherosclerotic disease, flow-limiting stenosis, occlusion, or dissection. 2. Patent bilateral vertebral arteries with a dominant right vertebral artery. Measurement of carotid stenosis is based on the residual internal carotid diameter with [place] Symptomatic Carotid Endarterectomy Trial (NASCET) based stenosis levels. CT Angiogram of the Brain Clinical Indications: Stroke alert, weakness, prior strokes. Prior meningioma resections. Technique: CT angiogram of the brain and neck was performed with the uneventful intravenous administration of 85 mL Isovue-370 contrast. Multiplanar reconstructions including 3D reconstructions performed and evaluated on Vitrea workstation in order to better evaluate the [place] vessels. Images were manipulated by the radiologist at the computer workstation. Dose reduction techniques were utilized. Findings: Major vessels of the [place] are adequately displayed, demonstrating no evidence of aneurysm, vascular malformation, flow-limiting stenosis, or occlusion. Bilateral cavernous internal carotid arteries and vertebrobasilar system demonstrates no evidence of flow-limiting stenosis, aneurysm, occlusion, or dissection. Minimal flow in the superior sagittal sinus probably secondary to chronic thrombosis from previous bilateral parietal parafalcine meningioma resections and multiple prior bilateral craniotomies. Impression: 1. No evidence of flow-limiting stenosis, occlusion, or dissection of the [place] vessels. 2. No definite cerebral aneurysms. 3. Minimal flow in the superior sagittal sinus secondary to probable chronic occlusion from multiple prior surgeries. Findings and recommendations discussed with Emergency Department physician, Walter Massey MD at 1017 hours, 10/26/2018. Final report concurs with initial preliminary interpretation. Imaging: Discussed imaging studies w/ square dance caller Radiologist ED Course/Re-evaluation: CHIEF COMPLAINT: Stroke alert HISTORY OF PRESENT ILLNESS: This patient is a 63 year old female with past medical history including recurrent meningiomas s/p several resections, hemorrhagic CVA with right sided spasticity, seizure disorder, complex migraines. She arrives today via EMS on a stroke alert. She was last seen normal at 7:45 this morning, two hours prior to arrival. Staff at her assisted living facility noted that she could not ambulate well compared to usual, had slurred speech, and appeared confused. She presents now with mild slurred speech and right extremity weakness. Of note, the patient has a stroke two years ago with resultant right-sided deficits. She does not usually have speech difficulties or confusion. Complains of mild headache. Vitals stable in transport. BGL 81. BP 141/88. HR 59, sinus rhythm on monitor. SpO2 98%. No chest pain, shortness of breath, vomiting, diarrhea, or other associated symptoms. REVIEW OF SYSTEMS: A comprehensive 10 system review of systems is otherwise negative aside from elements mentioned in the history of present illness and medical decision making. PHYSICAL EXAM: HR, BP, O2 Sat, RR. Temp noted General Appearance: Alert, well hydrated, appropriate, and non-toxic appearing. Head: Atraumatic without scalp tenderness or obvious injury Eyes: Pupils equal, round, reactive to light and accommodation, EOMI, no trauma , no injection. Ears: Clear bilaterally, no perforation, normal landmarks Nose: Atraumatic, no rhinorrhea, clear. Throat: There is no erythema or exudates, no lesions, normal tonsils, mucus membranes moist. Neck: Supple, 2+ carotid upstroke, nontender, no lymphadenopathy. Respiratory: No retractions, no distress, no wheezes, and no accessory muscle use. Lungs are clear to auscultation bilaterally. Cardiovascular: Regular rate and rhythm, no murmurs, rubs, or gallops. Bilateral carotid, radial, dorsalis pedis, and posterior tibial pulses intact. Good capillary refill all extremities. Gastrointestinal: Abdomen is soft, nontender, non-distended, no masses, no rebound, no guarding, no peritoneal signs. Musculoskeletal: Normal active ROM of all extremities, atraumatic. Neurological: Alert, appropriate, and interactive. The patient has normal DTRs and non-focal cranial nerves, motor, sensory, and cerebellar exam. Skin: No rashes, good turgor, no nodules on palpation. Past medical history: Recurrent meningiomas s/p several resections, hemorrhagic CVA with right sided spasticity, seizure disorder, complex migraines Past surgical history: Multiple meningioma resections. Family history: Noncontributory. Social history: at bedside. DIFFERENTIAL DIAGNOSIS: The differential diagnosis for the patient's neurologic deficits included but was not limited to peripheral causes, central causes including CVA, TIA, electrolyte abnormalities and dehydration, cardiogenic causes, atypical causes like migraine syndrome. MEDICAL DECISION MAKIN:54 Met EMS on arrival. Exam shows right-sided facial droop. Right contracture likely chronic as patient has history of prior CVAs. Onset of symptoms was 07: 45. Patient will proceed directly to CT. She is not anticoagulated. Plan for CT head and CTA head/neck. CT head and CTA head/neck do not show any acute stroke or vessel occlusion. This patient does have a seizure history after her hemorrhagic stroke in numerous brain surgeries. She is on Keppra. This presentation could certainly be a TIA could also be a post seizure paralysis. Her symptoms seem to be resolving additionally she seems somewhat postictal after her seizure. She is not felt to be a tPA candidate at this time by myself and by Dr. Edward, neurologist at [facility]. Dr. Alexey Montalvo has consulted from Neurology. 10:51 Spoke with hospitalist service. Dr. Keating accepts admission. - Data Points Laboratory Results: Laboratory Results 10/26/18 09:58 10/26/18 09:58 10/26/18 10/26/18 10/26/18 10:19 10:00 09:58 WBC RBC Hgb POC Hgb 15.6 gm/dL gm/dL (12.6-16.3) Hct POC Hct 46 % % (38-47) MCV MCH MCHC RDW Plt Count MPV Neut % (Auto) Lymph % (Auto) Kimble % (Auto) Eos % (Auto) Baso % (Auto) Nucleat RBC Rel Count Absolute Neuts (auto) Absolute Lymphs (auto) Absolute Monos (auto) Absolute Eos (auto) Absolute Basos (auto) Absolute Nucleated RBC Immature Gran % Immature Gran # PT INR APTT POC Sodium 140 mEq/L mEq/L (135-145) Sodium POC Potassium 3.9 mEq/L mEq/L (3.3-5.0) Potassium POC Chloride 99 mEq/L mEq/L (97-110) Chloride Carbon Dioxide Anion Gap POC BUN 19 mg/dL mg/dL (7-23) BUN Creatinine POC Creatinine 0.6 mg/dL mg/dL (0.6-1.0) Estimated GFR Glucose POC Glucose 77 mg/dL mg/dL (70-100) Hemoglobin A1c 5.1 % % (4.0-6.0) Estim Average Glucose 100 mg/dL mg/dL (68-126) Calcium POC Troponin I 0.00 ng/mL ng/mL (0.00-0.08) 10/26/18 10/26/18 10/26/18 09:58 09:58 09:58 WBC 3.50 10^3/uL L 10^3/uL (3.80-9.50) RBC 4.70 10^6/uL 10^6/uL (4.18-5.33) Hgb 15.3 g/dL g/dL (12.6-16.3) POC Hgb Hct 44.9 % % (38.0-47.0) POC Hct MCV 95.5 fL fL (81.5-99.8) MCH 32.6 pg pg (27.9-34.1) MCHC 34.1 g/dL g/dL (32.4-36.7) RDW 12.8 % % (11.5-15.2) Plt Count 302 10^3/uL 10^3/uL (150-400) MPV 9.3 fL fL (8.7-11.7) Neut % (Auto) 57.7 % % (39.3-74.2) Lymph % (Auto) 27.1 % % (15.0-45.0) Kimble % (Auto) 12.9 % % (4.5-13.0) Eos % (Auto) 1.1 % % (0.6-7.6) Baso % (Auto) 0.9 % % (0.3-1.7) Nucleat RBC Rel Count 0.0 % % (0.0-0.2) Absolute Neuts (auto) 2.02 10^3/uL 10^3/uL (1.70-6.50) Absolute Lymphs (auto) 0.95 10^3/uL L 10^3/uL (1.00-3.00) Absolute Monos (auto) 0.45 10^3/uL 10^3/uL (0.30-0.80) Absolute Eos (auto) 0.04 10^3/uL 10^3/uL (0.03-0.40) Absolute Basos (auto) 0.03 10^3/uL 10^3/uL (0.02-0.10) Absolute Nucleated RBC 0.00 10^3/uL 10^3/uL (0-0.01) Immature Gran % 0.3 % % (0.0-1.1) Immature Gran # 0.01 10^3/uL 10^3/uL (0.00-0.10) PT 13.3 SEC SEC (12.0-15.0) INR 0.99 (0.83-1.16) APTT 32.1 SEC SEC (23.0-38.0) POC Sodium Sodium 138 mEq/L mEq/L (135-145) POC Potassium Potassium 4.5 mEq/L mEq/L (3.5-5.2) POC Chloride Chloride 101 mEq/L mEq/L (97-110) Carbon Dioxide 27 mEq/l mEq/l (22-31) Anion Gap 10 mEq/L mEq/L (6-14) POC BUN BUN 20 mg/dL mg/dL (7-23) Creatinine 0.7 mg/dL mg/dL (0.6-1.0) POC Creatinine Estimated GFR > 60 Glucose 77 mg/dL mg/dL (70-100) POC Glucose Hemoglobin A1c Estim Average Glucose Calcium 10.1 mg/dL mg/dL (8.5-10.4) POC Troponin I Medications Given: Baclofen (Baclofen) 10 mg PO TID DEONNA Stop: 04/24/19 15:59 Last Admin: 10/26/18 16:06 Dose: 10 mg Carbidopa/Levodopa (Sinemet) 0.5 tab PO DAILY@12 DEONNA Stop: 04/24/19 11:59 Last Admin: 10/26/18 16:06 Dose: 0.5 tab Discontinued Medications Ibuprofen (Motrin) 400 mg PO EDNOW ONE Stop: 10/26/18 13:34 Last Admin: 10/26/18 13:36 Dose: 400 mg Point of Care Test Results: Chemistry 10/26/18 10/26/18 10:19 10:00 POC Sodium 140 mEq/L mEq/L (135-145) POC Potassium 3.9 mEq/L mEq/L (3.3-5.0) POC Chloride 99 mEq/L mEq/L (97-110) POC BUN 19 mg/dL mg/dL (7-23) POC Creatinine 0.6 mg/dL mg/dL (0.6-1.0) POC Glucose 77 mg/dL mg/dL (70-100) POC Troponin I 0.00 ng/mL ng/mL (0.00-0.08) ISTAT H&H 10/26/18 10:00 POC Hgb 15.6 gm/dL gm/dL (12.6-16.3) POC Hct 46 % % (38-47) Departure - Departure Disposition: [facility] Inpatient Acute Clinical Impression: CVA (cerebral vascular accident) Qualifiers: CVA mechanism: other Qualified Code(s): I63.89 - Other cerebral infarction Condition: Fair Report Scribed for: Walter Massey Report Scribed by: Heavenly Srivastava Date of Report: 10/26/18 Time of Report: 17:58
[2018-10-26 10:24] LABS: PLATELET COUNT 302 10^3/uL (150-400)
[2018-10-26 10:30] LABS: INR 0.99 (0.83-1.16); PROTIME(PATIENT) 13.3 SEC (12.0-15.0)
[2018-10-26] MEDS ORDERED: ACETAMINOPHEN 325 MG TAB PO PRN (12:00)
[2018-10-26] MEDS ORDERED: CARBIDOPA/LEVODOPA 25 MG/100 MG TAB PO SCH (12:00)
[2018-10-26] MEDS ORDERED: ONDANSETRON 4 MG/2 ML VIAL IVP PRN (12:00)
--- NOTE | 2018-10-26 12:39 | PDGENHP ---
History and Physical - Chief Complaint altered mental status - History of Present Illness 63yo F with complicated neurologic history including recurrent meningiomas s/p several resections, hemorrhagic CVA with right sided spasticity, seizure disorder, complex migraines brought to ED by EMS under a stroke alert. History obtained from patient and her . She was in usual state of health at 745 this AM when left for work. A friend had called the patient and noted she wasn't speaking clearly or acting herself so she alerted who had pharmacy intern check on patient. When pharmacy intern arrived, patient was sitting at table but non-communicative, crying, and not responding appropriately. She was transferred to a wheelchair and pharmacy intern did not notice any new weakness. In the ED, a non-contrasted head CT and CTA head/neck did not show any acute stroke or vessel occlusion. Her symptoms had improved in the ED and felt not to be a TPA candidate. Upon my discussion with the patient, she is complaining of a headache and generalized weakness. There was no witnessed seizure activity although she usually has non-convulsive seizures with a prolonged post-ictal state. Per , this presentation isn't consistent with those symptoms. No recent change in seizure medications. History Information - Allergies/Home Medication List Allergies/Adverse Reactions: No Allergies [NKA] Allergy (Verified 10/26/18 10:13) I have personally reviewed and updated: family history, medical history, social history, surgical history - Past Medical History Additional medical history: recurrent meningiomas s/p 4 resections as well as radiation, hemorrhagic stroke 10/2013 with significant right sided deficits, gait disorder, ? multiple TIAs, complex migraines, seizure disorder, multiple orthopedic fractures 2/2 falls/seizures, numerous hospitalizations with subsequent inpatient rehab stays - Surgical History Additional surgical history: resection of 4 meningiomas, left eye orbital reconstruction, multiple orthopedic surgeries - Family History Positive for: non-pertinent - Social History Smoking Status: Never smoked Alcohol Use: Other (drinks glass of wine most nights) Drug Use: None Additional social history: Lives with . Dependent in ADLs. Uses walker and wheelchair. Has caregivers during the day on weekdays. Review of Systems Review of Systems: ROS: 10pt was reviewed & negative except for what was stated in HPI & below Physical Exam Physical Exam: Temp Pulse Resp BP Pulse Ox 36.1 C 57 L 16 122/83 H 94 10/26/18 10:13 10/26/18 11:40 10/26/18 11:40 10/26/18 11:40 10/26/18 11:40 Constitutional: uncomfortable, other (chronically ill appearing) Eyes: PERRL, anicteric sclera, EOMI, other (left eye proptosis, mild bilateral conjunctival injection) Ears, Nose, Mouth, Throat: moist mucous membranes, hearing normal, ears appear normal, no oral mucosal ulcers Cardiovascular: regular rate and rhythym, no murmur, rub, or gallop, No edema Respiratory: no respiratory distress, no rales or rhonchi, clear to auscultation Gastrointestinal: normoactive bowel sounds, soft, non-tender abdomen, no palpable masses Genitourinary: no bladder fullness, no bladder tenderness Skin: warm, normal color, no rashes or abrasions, no fluctuance, no induration, No mottled Neurologic: AAOx3 (slow to respond), sensation intact bilaterally, other (right upper extremity contractures, right sided weakness, mild right facial droop), No pronator drift Psychiatric: not encephalopathic Lab Data & Imaging Review 10/26/18 09:58 10/26/18 09:58 WBC 3.50 10^3/uL (3.80-9.50) L 10/26/18 09:58 RBC 4.70 10^6/uL (4.18-5.33) 10/26/18 09:58 Hgb 15.3 g/dL (12.6-16.3) 10/26/18 09:58 POC Hgb 15.6 gm/dL (12.6-16.3) 10/26/18 10:00 Hct 44.9 % (38.0-47.0) 10/26/18 09:58 POC Hct 46 % (38-47) 10/26/18 10:00 MCV 95.5 fL (81.5-99.8) 10/26/18 09:58 MCH 32.6 pg (27.9-34.1) 10/26/18 09:58 MCHC 34.1 g/dL (32.4-36.7) 10/26/18 09:58 RDW 12.8 % (11.5-15.2) 10/26/18 09:58 Plt Count 302 10^3/uL (150-400) 10/26/18 09:58 MPV 9.3 fL (8.7-11.7) 10/26/18 09:58 Neut % (Auto) 57.7 % (39.3-74.2) 10/26/18 09:58 Lymph % (Auto) 27.1 % (15.0-45.0) 10/26/18 09:58 Glenn % (Auto) 12.9 % (4.5-13.0) 10/26/18 09:58 Eos % (Auto) 1.1 % (0.6-7.6) 10/26/18 09:58 Baso % (Auto) 0.9 % (0.3-1.7) 10/26/18 09:58 Nucleat RBC Rel Count 0.0 % (0.0-0.2) 10/26/18 09:58 Absolute Neuts (auto) 2.02 10^3/uL (1.70-6.50) 10/26/18 09:58 Absolute Lymphs (auto) 0.95 10^3/uL (1.00-3.00) L 10/26/18 09:58 Absolute Monos (auto) 0.45 10^3/uL (0.30-0.80) 10/26/18 09:58 Absolute Eos (auto) 0.04 10^3/uL (0.03-0.40) 10/26/18 09:58 Absolute Basos (auto) 0.03 10^3/uL (0.02-0.10) 10/26/18 09:58 Absolute Nucleated RBC 0.00 10^3/uL (0-0.01) 10/26/18 09:58 Immature Gran % 0.3 % (0.0-1.1) 10/26/18 09:58 Immature Gran # 0.01 10^3/uL (0.00-0.10) 10/26/18 09:58 PT 13.3 SEC (12.0-15.0) 10/26/18 09:58 INR 0.99 (0.83-1.16) 10/26/18 09:58 APTT 32.1 SEC (23.0-38.0) 10/26/18 09:58 POC Sodium 140 mEq/L (135-145) 10/26/18 10:00 Sodium 138 mEq/L (135-145) 10/26/18 09:58 POC Potassium 3.9 mEq/L (3.3-5.0) 10/26/18 10:00 Potassium 4.5 mEq/L (3.5-5.2) 10/26/18 09:58 POC Chloride 99 mEq/L (97-110) 10/26/18 10:00 Chloride 101 mEq/L (97-110) 10/26/18 09:58 Carbon Dioxide 27 mEq/l (22-31) 10/26/18 09:58 Anion Gap 10 mEq/L (6-14) 10/26/18 09:58 POC BUN 19 mg/dL (7-23) 10/26/18 10:00 BUN 20 mg/dL (7-23) 10/26/18 09:58 Creatinine 0.7 mg/dL (0.6-1.0) 10/26/18 09:58 POC Creatinine 0.6 mg/dL (0.6-1.0) 10/26/18 10:00 Estimated GFR > 60 10/26/18 09:58 Glucose 77 mg/dL (70-100) 10/26/18 09:58 POC Glucose 77 mg/dL (70-100) 10/26/18 10:00 Calcium 10.1 mg/dL (8.5-10.4) 10/26/18 09:58 POC Troponin I 0.00 ng/mL (0.00-0.08) 10/26/18 10:19 Visualized and Interpreted imaging results: Yes Interpretation: CXR: no acute abnormality. CT head: large areas of encephalomalacis involving bilateral parietal lobes and left frontal lobe, no acute hemorrhage or mass. CTA head/neck: no carotid disease, stenosis, occlusion or dissection; patent bilateral vetebral arteries; no e/o stenosis, occlusion or dissection of the [place] vessels, no cerebral aneurysms EKG additional interpertation: ECG: sinus rhythm, no acute ishcemia Assessment & Plan Assessment: 63yo F with complicated neurologic history including recurrent meningiomas s/p several resections, hemorrhagic CVA with right sided spasticity, seizure disorder, complex migraines brought to ED by EMS under a stroke alert. Plan: 1. Acute metabolic on chronic encephalopathy: Improving but not back to baseline per . DDx includes CVA/TIA vs seizure with post-ictal state vs complex migraine. I do not think she is in status epilepticus and does not need to be transferred for cEEG monitoring. Not TPA candidate given rapid improvement. 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 - Will ask radiology to comment on interval change on above MRI 3. Seizure disorder: Non-convulsive. - Increasing keppra as above 4. Spasticity: Mostly right sided due to prior CVA. Gets botox injections as outpt. - Continue baclofen 5. Recurrent meningiomas: Followed by Dr Keenan. 6. H/o hemorrhagic CVA in 2013 VTE ppx: SCDs Diet: NPO until bedside swallow, then regular Code: full, per discussion with patient and Dispo: Admit under observation
[2018-10-26] MEDS ORDERED: IBUPROFEN 200 MG TAB PO ONE (13:33)
--- NOTE | 2018-10-26 13:48 | GCON ---
NEUROLOGY CONSULT CHIEF COMPLAINT: Transient neurologic symptoms. HISTORY OF PRESENT ILLNESS: The patient is a very pleasant 63-year-old lady, well known to the Neurology service for multiple complex neurologic problems. She follows with Dr. Yoandy Keenan as an outpatient. She has a history of recurrent meningioma, status post multiple resections, along with previous intracranial hemorrhage, right-sided spasticity, cognitive abnormalities, complex migraines, and a symptomatic seizure disorder. She, at baseline, has cognitive impairment, right-sided spastic hemiparesis and aphasia. Apparently, she became groggy and irritable this morning, and tired, and was brought back to the ED. She has these symptoms after seizures typically. When she was here, there were no ongoing symptoms of seizure activity. She had a head CT, CT of the head and neck, without any evidence of an acute stroke or vessel occlusion. She is improving from this postictal-like state in the ED and has had no witnessed convulsive seizures. REVIEW OF SYSTEMS: Performed with the help of her and only pertinent to the HPI. For past medical history, social history, family history, allergies, see Dr. Keating's H and P. PHYSICAL EXAM: VITAL SIGNS: Blood pressure is 116/78, temperature 36.1, heart rate 60s. GENERAL: The patient is awake and alert, able to follow commands. A comprehensive neurologic exam was unable to be performed as she was getting an echocardiogram in the ED during my evaluation. However, I could observe her face and limbs, and there was no overt or subtle convulsive activity present. She did not appear to be in nonconvulsive seizures during my interview with the patient and her family. IMPRESSION/PLAN: 1. Transient neurologic symptoms. 2. Multiple previous meningiomas, status post resections. 3. History of intracranial hemorrhage. Abbie may have had a recurrent seizure with a postictal state. Not entirely clear. We will proceed with an MRI of brain with and without contrast to visualize any potential acute infarct and to update her meningioma imaging. Her , who is an excellent historian, tells me her baseline Keppra dose is 750 mg twice daily. We will increase to 1000 mg p.o. b.i.d. We discussed potential risks, benefits, and alternatives of this dosage increase, including mood changes, irritability, depression, homicidal and suicidal ideation. There was no overt evidence of subtle or nonconvulsive seizure activity on exam in the emergency department. If there are no acute findings on MRI and she continues to recover from this postictal-like state, certainly discharge tomorrow would be reasonable. We will be available for any questions or concerns on MRI finding. She should be discharged on 1000 mg b.i.d. of Keppra, and Dr. Keenan, her primary neurologist, can renew her prescriptions and follow up with her in the near future. No further recommendations. We will continue to follow p.r.n. Please do not hesitate to call if there are any questions or changes in neurologic status with this patient. Seventy total minutes floor time reviewing extensive previous inpatient records , outpatient records, over 50% in direct counseling and coordination of care. /[id number]/MODL MTDD
[2018-10-26] MEDS ORDERED: GADOBUTROL 10 ML VIAL IVP ONE (14:01)
--- NOTE | 2018-10-26 14:03 | CPEKG ---
Test Reason : OPEN Blood Pressure : / mmHG Vent. Rate : 059 BPM Atrial Rate : 058 BPM P-R Int : 191 ms QRS Dur : 108 ms QT Int : 456 ms P-R-T Axes : 050 -16 056 degrees QTc Int : 452 ms Sinus rhythm Borderline left axis deviation Confirmed by Walter Massey ([id number]) on 10/26/2018 2:02:31 PM Referred By: Confirmed By:Walter Massey
--- NOTE | 2018-10-26 15:14 | ECHO ---
[email or web address] [address] [address] Main: [phone] Fax: Transthoracic Echocardiogram Name: BARRETT CHOU MR#: [id number] Study Date: 10/26/2018 Study Time: 12:31 PM Date of : 1955 Age: 63 year(s) Height: ( ) Weight: 68.49 kg (151 lb.) BSA: Gender: Female Examination: Complete Echo with Agitated Saline Indication: ischemic stroke Image Quality: Adequate Contrast: Requested by: Ezequiel Keating BP: 122 mmHg/83 mmHg Heart Rate: Rhythm: Indication: ischemic stroke Procedure Staff Pecan Gatherer: Helen Taylor [facility] Reading Physician: Robert Guillermo MD Requesting Provider: Conclusions: Normal study Measurements: Chambers Valvular Assessment AV/MV Valvular Assessment TV/PV Normal Normal Normal Name Value Range Name Value Range Name Value Range Ao Dorcas (2D): 2.1 cm (1.4 cm-2.6 AV Vmax: 0.96 m/s (1 m/s-1.7 PV Vmax: 0.65 m/s (0.6 m/s-0.9 cm) m/s) m/s) IVSd (2D): 0.8 cm (0.6 cm-1.1 AV maxP mmHg ( - ) PV PGmax: 2 mmHg ( - ) cm) AV meanP mmHg ( - ) LVDd (2D): 3.8 cm (3.9 cm-5.3 LVOT Vmax: 0.80 m/s (0.7 m/s-1.1 cm) m/s) LVDs (2D): 2.1 cm (2.1 cm-4 GINETTE (Vmax): 1.9 cm2 ( - ) cm) GINETTE (VTI): 2.2 cm ( - ) LVPWd (2D): 0.7 cm ( - ) MV E Vmax: 0.55 m/s ( - ) LVOTd 1.7 cm 1.7 cm mm MV A Vmax: 0.54 m/s ( - ) LVEF (MOD4): 66 % (>=55 %) MV E/A: 1.02 ( - ) RVDd(2D): 2.6 cm (1.9 cm-3.8 MV PHT: 0.067 s ( - ) cmmm) MVA (PHT): 3.3 s ( - ) Continued Measurements: Chambers Valvular Assessment AV/MV Name Value Name Value LADs: 2.9 cm MV DecTime: 229 m/s LADs Lon.6 cm MV E/E' Septal: 7.50 LA Area: 11.7 cm2 MV E/E' Lateral: 7.50 LA Volume: 23 ml Patient: BARRETT CHOU Study Date: 10/26/2018 Page 1 of 2 12:31 PM Additional Vessels Name Value Ao Ascendin.8 cm Findings: Left Ventricle: Normal size left ventricle. No LV hypertrophy. Normal global systolic LV function. EF is 66 %. No regional wall motion abnormality. Normal diastolic LV function. Right Ventricle: Normal size right ventricle. Normal RV function. Left Atrium: The left atrium is normal in size. An agitated saline study was performed and was negative for intracardiac shunting. Right Atrium: The right atrium is normal in size. Mitral Valve: The mitral valve is normal in appearance and function. Trivial mitral valve regurgitation. No mitral stenosis is present. Aortic Valve: The aortic valve is tri-leaflet. Aortic sclerosis is present. There is no significant aortic valve regurgitation. No aortic valve stenosis is present. Tricuspid Valve: The tricuspid valve is normal in appearance and function. Trivial tricuspid valve regurgitation. Pulmonic Valve: The pulmonic valve is normal in appearance and function. There is no pulmonic regurgitation seen. Aorta: The aorta is normal. Normal size aortic root measuring 2.1 cm. Normal size ascending aorta measuring 2.8 cm. IVC: Subcostal technically difficult. Pericardium: No pericardial effusion. No pleural effusion. (No Signature Object) Patient: BARRETT CHOU Study Date: 10/26/2018 Page 2 of 2 12:31 PM [id number]
--- NOTE | 2018-10-26 15:52 | NEUROPROG ---
Assessment: Addendum to consultation: The RN call me and let me know that I misunderstood the patient's when I saw her noon today. Essentially, I understood that she was on Keppra 750 mg twice daily. However, she is actually on 1500 mg twice daily. I have corrected her medication orders so she gets the right amount medication while hospitalized. We will not increase her medication now because today's event is not clear in terms of etiology. She is also on the FDA maximum dose of Keppra. The MRI is complete but the interpretation is pending. I also added a Keppra level for her outpatient neurologist, Dr. Keenan, to consider as well. Objective: Vital Signs Temp Pulse Resp BP Pulse Ox 36.1 C 56 L 14 122/71 H 94 10/26/18 10:13 10/26/18 15:00 10/26/18 15:00 10/26/18 15:00 10/26/18 15:00 PT 13.3 SEC (12.0-15.0) 10/26/18 09:58 INR 0.99 (0.83-1.16) 10/26/18 09:58 Allergies/Adverse Reactions: No Allergies [NKA] Allergy (Verified 10/26/18 10:13)
[2018-10-26] MEDS: BACLOFEN 10 MG TAB PO SCH ×2 (16:06→21:23)
[2018-10-26] MEDS ORDERED: DIAZEPAM 5 MG TAB PO ONE (19:51)
[2018-10-26] MEDS ORDERED: levETIRAcetam 500 MG TAB PO SCH ×2 (21:00)
[2018-10-26] MEDS: CARBIDOPA/LEVODOPA 25 MG/100 MG TAB PO SCH (21:23)
[2018-10-26] MEDS: levETIRAcetam 500 MG TAB PO SCH (21:24)
[2018-10-27 05:39] LABS: PLATELET COUNT 267 10^3/uL (150-400)
[2018-10-27] MEDS ORDERED: SERTRALINE HCL 50 MG TAB PO SCH (09:00)
[2018-10-27] MEDS: levETIRAcetam 500 MG TAB PO SCH (09:10)
[2018-10-27] MEDS: CARBIDOPA/LEVODOPA 25 MG/100 MG TAB PO SCH (09:11)
[2018-10-27] MEDS: BACLOFEN 10 MG TAB PO SCH (09:11)
--- NOTE | 2018-10-27 09:52 | NEUROPROG ---
Assessment: 1. Transient neurologic symptoms, resolved 2. History of multiple meningiomas status post multiple resections 3. Remote history of intracranial hemorrhage 35 total minutes floor time; over 50% counseling and coordination of care The patient has come back to her baseline fully and today is awake, alert and able to converse normally. This is quite different from yesterday when I saw her in the emergency department. MRI brain was done and shows no acute abnormalities such as stroke, hemorrhage etc. Meningiomas appears stable along with other abnormalities of previous encephalomalacia. We discussed that the differential diagnosis may be seizure with postictal, indeterminate spell in the setting of for cognitive reserve or possibly complex migraine. The patient is unable to give me a clear history on what she experienced yesterday. She is on 3000 mg of Keppra daily. Her level is pending. The patient would like to discharge home today. We will try to arrange this with Hospital Medicine. Therapies are working with her now. I recommend follow -up with Dr. Keenan, her outpatient neurologist, they can discuss perhaps repeating an EEG and if any other anticonvulsant medications would be indicated as adjunctive therapy. At this point, we will not change her outpatient medications. The patient and her do not wish to change her medications as well. This is reasonable based on the indeterminate nature of this event. In addition, she is on indefinite driving restrictions and seizure precautions. We will sign off and follow up as needed. Please do not hesitate to call for any questions or changes in neurologic status with this patient. Subjective: Symptoms have resolved Objective: Vital Signs Temp Pulse Resp BP Pulse Ox 36.4 C 64 16 106/71 92 10/27/18 07:24 10/27/18 07:24 10/27/18 07:24 10/27/18 07:24 10/27/18 07:24 Laboratory Results 10/27/18 05:05 10/27/18 05:05 10/26/18 10/27/18 10/28/18 05:59 05:59 05:59 Intake Total 1160 Output Total 950 Balance 210 PT 13.3 SEC (12.0-15.0) 10/26/18 09:58 INR 0.99 (0.83-1.16) 10/26/18 09:58 Today she is awake alert and conversant.fairly lucid Allergies/Adverse Reactions: No Allergies [NKA] Allergy (Verified 10/26/18 10:13)
--- NOTE | 2018-10-27 11:01 | ASMTCMCOM ---
CM Note CM Note Notes: CM met with pt and caregiver, Aminata. Pt reports she wants to be discharged today. Pt open with outpatient PT through [facility] Outpatient PT. Pt is dependent on care but has hired caregivers during the day and , [place] at night. Pt uses wheelchair and walker at home, no additional needs identified. CM available if needs arise. Pts , Colton is Surrogate Decision Maker, MOST in chart. Plan: Home with previous supports of [facility] outpatient PT, home caregivers. Date Signed: 10/27/2018 11:00 AM Electronically Signed By:SHAHID Pascual
[2018-10-27 11:34] VITALS: BP 119/65
--- NOTE | 2018-10-27 12:01 | PDDCSUM ---
Discharge Summary Discharge Summary: Date of Admission: 10/26/2018 Date of Discharge: 10/27/2018 Consultants: neurology (Dr Alexey Montalvo) Studies: 1. Non-con CT head 2. MRI brain 3. CTA head/neck 4. TTE w/bubble Discharge Diagnoses: 1. Transient neurologic symptoms, resolved 2. Acute metabolic encephalopathy, resolved 3. History of multiple meningiomas s/p multiple resections 4. Seizure disorder 5. Remote history of hemorrhagic CVA 6. Chronic right sided spasticity 7. H/o complex migraines Brief Hospital Course: 63yo F with complicated neurologic history including recurrent meningiomas s/p several resections, hemorrhagic CVA with right sided spasticity, seizure disorder, complex migraines brought to ED by EMS under a stroke alert. Was found to be altered at home complaining of headache. Head imaging did not show acute stroke and she did not receive TPA. TTE was without PFO, telemetry did not show atrial dysrhythmia. Neurology was consulted. Unclear etiology of her symptoms: possibly seizure with post-ictal state, indeterminate spell in setting of poor cognitive reserve, versus complex migraine. Her symptoms resolved spontaneously. PT/OT assessed patient and felt to be at baseline. She has essentially 24 hour care at home. Neurology did consider changing her anti- epileptics but opted not to. She is on maximum FDA approved dose of keppra. A keppra level is pending at time of discharge. Medications: Please refer to EMR. No changes this admission. Follow Up Plan: 1. Levetiracetam level is pending at discharge 2. Follow up with Dr Keenan as planned 3. Strongly recommend palliative care involvement given numerous hospitalizations and chronic medical problems Physical Exam: Vitals and telemetry reviewed, no afib/flutter. Alert and oriented. Left eye proptosis. Chronic mild right facial droop, RUE contracture, R upper and lower extremity weakness. RRR without m/r/g, lungs clear, abdomen soft, no leg edema.
--- NOTE | 2018-10-27 15:11 | ASDISCHSUM ---
Discharge Information Plan Status:Home with No Needs Medically Cleared to Leave:10/26/2018 Discharge Date:10/27/2018 12:44 PM CM D/C Disposition:Home, Routine, Self-Care ADT D/C Disposition:Home, Routine, Self-Care Projected Discharge Date:10/27/2018 12:00 AM Transportation at D/C:Family Discharge Delay Reason: Follow-Up Date:10/27/2018 12:00 AM Discharge Slot: Final Diagnosis: Placement Information Patient Contact Information Contact Name:RAZA Relationship: Address:[address] City:[place] Alternate Phone: State/Zip Code:[place] [address] Email: Financial Information Financial Class:Mobile [employer] Primary Plan Desc:[facility]I [facility] [place] [facility] Primary Plan Number:[id number] Secondary Plan Desc: Secondary Plan Number: Assessment Information LACE LACE Length of stay for Answers: 1 day current admission Acuity / Level of Answers: Yes Care: Did the patient have an inpatient admission? Comorbidities - select Answers: Cerebrovascular disease all that apply (CVA, TIA, aneurysms, vasc ular dementia) Other Notes: Seizure disorder # of Emergency department Answers: 1-2 visits in the last 6 months Score: 7 Date Signed: 10/27/2018 03:08 PM Electronically Signed By:SHAHID Pascual [facility] CM Progress Note CM Note CM Note Notes: CM met with pt and caregiver, Aminata. Pt reports she wants to be discharged today. Pt open with outpatient PT through [facility] Outpatient PT. Pt is dependent on care but has hired caregivers during the day and [place] at night. Pt uses wheelchair and walker at home, no additional needs identified. CM available if needs arise. Pts , Colton is Surrogate Decision Maker, MOST in chart. Plan: Home with previous supports of [facility] outpatient PT, home caregivers. Date Signed: 10/27/2018 11:00 AM Electronically Signed By:SHAHID Pascual Case Management Discharge Plan Note Case Management Discharge Discharge Order Complete? Answers: Yes Patient to Obtain Answers: via Family Medications Transportation Arranged Answers: Family/Friends Discharge Comments Notes: Pt agreeable to d/c plan to home with previous arrangement of homecare aid and oupatient therapies. Family to transport. Date Signed: 10/27/2018 03:10 PM Electronically Signed By:SHAHID Pascual Intervention Information
== END 2018-10-27 12:44 | disposition home or self-care (01) ==
LOC: EDUNIT# → INTOOBSV 10:59 → F3N 14:42
PROVIDERS: ADMIT Internal Medicine; ATTEND Internal Medicine
DX: R29.818 Other symptoms and signs involving the nervous system (principal); G93.41 Metabolic encephalopathy; R53.1 Weakness; D32.0 Benign neoplasm of cerebral meninges; R29.707 NIHSS score 7; G81.11 Spastic hemiplegia affecting right dominant side; G40.909 Epilepsy, unspecified, not intractable, without status epilepticus; G43.909 Migraine, unspecified, not intractable, without status migrainosus; Z86.011 Personal history of benign neoplasm of the brain; Z87.81 Personal history of (healed) traumatic fracture; Z91.81 History of falling
CPT/HCPCS: 70450; 70496; 70498; 70553; 71045; 92523; 93005; 93306; 97162; 97165; 97535; 99285; G0378; 80177-90; 82435-PO; 82565-PO; 82947-PO; 84132-PO; 84295-PO; 84484-PO; 84520-PO; 85014-PO; A9585

== ENCOUNTER 2019-01-01 09:30 | Inpatient (IN) | payer OTHER ==
--- NOTE | 2019-01-01 09:38 | EDPHY ---
H & P Time Seen by Provider: 01/01/19 09:34 HPI/ROS: CHIEF COMPLAINT: Altered mental status HISTORY OF PRESENT ILLNESS: The patient is a 63-year-old female with a history of hemorrhagic stroke, meningioma, right-sided deficits and baseline aphasia who presents emergency department with new altered mental status. For the patient's and EMS, the patient awoke at 5:00 a.m.. She seemed to be at her baseline state. She was having answer questions. However, at 7:00 a.m the had difficulty arousing her. She seemed to have a right gaze preference. She was not using either of her lower extremities and she seemed to have decreased movement of her right upper extremity from baseline. EMS noted a glucose of 105. REVIEW OF SYSTEMS: 10 systems were reveiwed and are negative with the exception of the elements mentioned in the history of present illness. NEURO/PSYCH: Past Medical/Surgical History: Past medical history includes meningioma, radiation therapy for meningioma, frequent falls, TIA, complex migraine, ataxia, hemorrhagic stroke in 2013, seizure Past surgical history: Includes meningioma surgery x4, reconstructive surgery for the left eye, lumbar spinal fusion, reconstructive foot surgery Smoking Status: Never smoked Physical Exam: Vitals noted GENERAL: No acute distress, alert. HEENT: Patient appears to have a right gaze preference. She will not turn her head past midline. She will not look past midline to the left. Pupils are equal bilaterally. They are reactive. Patient has mild chemosis of the conjunctiva of her left eye. Mild dry mucous membranes NECK: Normal, supple. Head turned to the right RESPIRATORY: Clear to auscultation bilaterally, no rales, rhonchi or wheezing. CVS: Regular rate and rhythm, no rubs, murmurs, or gallops. ABDOMEN: Soft, nontender, nondistended, no organomegaly. BACK: Normal to inspection, no CVA tenderness. SKIN: Normal color, no rash, warm, dry. No pallor. EXTREMITIES: The patient is fairly stiff bilateral lower extremities. No spontaneous movement a lower extremities. No pedal edema, no calf tenderness, no Homans sign or cords, no joint swelling. Patient's right upper extremity hand is contracted. Patient moves her left upper extremity NEURO/PSYCH: Patient is alert. She is not answering questions. Cannot determine orientation. The patient spontaneously moves her left upper extremity but not or other extremities. No obvious facial droop. Constitutional: Initial Vital Signs Temperature (C) 35.5 C L 01/01/19 09:52 Heart Rate 64 01/01/19 09:52 Respiratory Rate 16 01/01/19 09:52 Blood Pressure 128/88 H 01/01/19 09:52 O2 Sat (%) 98 01/01/19 09:52 O2 Delivery Mode Nasal Cannula O2 (L/minute) 2 Allergies/Adverse Reactions: No Allergies [NKA] Allergy (Verified 10/26/18 10:13) Home Medications: Medication Instructions Recorded Carboxymethylcellulose 0.5% 1 melissa EACHEYE Q2HRS PRN 30 Days 01/21/18 [Refresh Plus Drops 0.5%] droperette Baclofen [Baclofen 10 mg (*)] 10 mg PO TID #90 tab 02/01/18 Carbidopa/Levodopa 25/100Mg 0.5 tab PO DAILY@12 #15 tab 02/01/18 [Sinemet 25/100 MG (*)] Carbidopa/Levodopa 25/100Mg 1 tab PO BID 30 Days #60 tab 02/01/18 [Sinemet 25/100 MG (*)] Sertraline HCl [Zoloft 50mg (*)] 50 mg PO DAILY #30 tab 02/01/18 levETIRAcetam [Keppra 500 mg (*)] 1,500 mg PO BID 30 Days #180 tab 02/01/18 Diazepam [Diazepam] 5 mg PO HS PRN 01/01/19 Medical Decision Making - Diagnostics Imaging Results: Imaging Impressions Head CT 01/01/19 09:40 Impression: Stable noncontrast CT of the head. Extensive features of encephalomalacia throughout both cerebral hemispheres with postsurgical changes noted. Results called to Dr. Vianca Kern at 10:30 AM at the time of the interpretation. ED Course/Re-evaluation: In the emergency department I met EMS on arrival. I took report from the cna. Patient has a history of meningioma, previous hemorrhagic CVA and seizures. Because she has a right gaze preference and does not seem to be at her baseline she was given Ativan to treat for possible seizure. Head CT, laboratory studies and EKG were ordered. The patient's white count is low at at 5. Rest the CBC was unremarkable. Chemistry panel is normal. Troponin negative. Coags are normal. EKG shows normal sinus rhythm, normal rate, normal axis, prolonged ND. There are no ST or T-wave abnormalities. Head CT: Please refer the dictated report by Dr. Green. Patient has an abnormal baseline head CT but is unchanged from her previous. I rechecked the patient. After receiving Ativan her head was midline. She did not have a gaze preference. I feel her symptoms were likely secondary to seizure-like activity that was resolved with Ativan. Patient's arrived. I discussed the case and findings with him. He states she is more somnolent than normal. I discussed case with the hospitalist service. Dr. Brunner will admit. I discussed the case with Dr. Keenan from Neurology. I discussed the plan with the patient and . I answered all his questions. Dr. Keenan upgraded the patient to ICU. Differential Diagnosis: My differential includes but not limited to seizure activity, ischemic CVA, hemorrhagic CVA, subarachnoid hemorrhage, subdural hematoma, epidural hematoma, mass, malignancy, electrolyte abnormality, sugar abnormality, ACS, dysrhythmia - Data Points Laboratory Results: Laboratory Results 01/01/19 09:35 01/01/19 09:35 01/01/19 01/01/19 01/01/19 09:38 09:35 09:35 WBC RBC Hgb Hct MCV MCH MCHC RDW Plt Count MPV Neut % (Auto) Lymph % (Auto) Blair % (Auto) Eos % (Auto) Baso % (Auto) Nucleat RBC Rel Count Absolute Neuts (auto) Absolute Lymphs (auto) Absolute Monos (auto) Absolute Eos (auto) Absolute Basos (auto) Absolute Nucleated RBC Immature Gran % Immature Gran # PT 12.4 SEC SEC (12.0-15.0) INR 0.90 (0.83-1.16) APTT 29.2 SEC SEC (23.0-38.0) Sodium 135 mEq/L mEq/L (135-145) Potassium 4.8 mEq/L mEq/L (3.5-5.2) Chloride 100 mEq/L mEq/L (97-110) Carbon Dioxide 30 mEq/l mEq/l (22-31) Anion Gap 5 mEq/L L mEq/L (6-14) BUN 23 mg/dL mg/dL (7-23) Creatinine 0.8 mg/dL mg/dL (0.6-1.0) Estimated GFR > 60 Glucose 90 mg/dL mg/dL (70-100) Calcium 9.5 mg/dL mg/dL (8.5-10.4) POC Troponin I 0.00 ng/mL ng/mL (0.00-0.08) 01/01/19 09:35 WBC 3.10 10^3/uL L 10^3/uL (3.80-9.50) RBC 4.33 10^6/uL 10^6/uL (4.18-5.33) Hgb 14.1 g/dL g/dL (12.6-16.3) Hct 41.9 % % (38.0-47.0) MCV 96.8 fL fL (81.5-99.8) MCH 32.6 pg pg (27.9-34.1) MCHC 33.7 g/dL g/dL (32.4-36.7) RDW 13.6 % % (11.5-15.2) Plt Count 196 10^3/uL 10^3/uL (150-400) MPV 9.6 fL fL (8.7-11.7) Neut % (Auto) 60.8 % % (39.3-74.2) Lymph % (Auto) 27.4 % % (15.0-45.0) Blair % (Auto) 10.3 % % (4.5-13.0) Eos % (Auto) 0.6 % % (0.6-7.6) Baso % (Auto) 0.3 % % (0.3-1.7) Nucleat RBC Rel Count 0.0 % % (0.0-0.2) Absolute Neuts (auto) 1.88 10^3/uL 10^3/uL (1.70-6.50) Absolute Lymphs (auto) 0.85 10^3/uL L 10^3/uL (1.00-3.00) Absolute Monos (auto) 0.32 10^3/uL 10^3/uL (0.30-0.80) Absolute Eos (auto) 0.02 10^3/uL L 10^3/uL (0.03-0.40) Absolute Basos (auto) 0.01 10^3/uL L 10^3/uL (0.02-0.10) Absolute Nucleated RBC 0.00 10^3/uL 10^3/uL (0-0.01) Immature Gran % 0.6 % % (0.0-1.1) Immature Gran # 0.02 10^3/uL 10^3/uL (0.00-0.10) PT INR APTT Sodium Potassium Chloride Carbon Dioxide Anion Gap BUN Creatinine Estimated GFR Glucose Calcium POC Troponin I Medications Given: Discontinued Medications Sodium Chloride (Ns) 1,000 mls @ 0 mls/hr IV ONCE ONE; Wide Open PRN Reason: Protocol Stop: 01/01/19 09:41 Last Admin: 01/01/19 10:03 Dose: 1,000 mls Lorazepam (Ativan Injection) 1 mg IVP EDNOW ONE Stop: 01/01/19 09:41 Last Admin: 01/01/19 09:48 Dose: 1 mg Point of Care Test Results: Chemistry 01/01/19 09:38 POC Troponin I 0.00 ng/mL ng/mL (0.00-0.08) Departure - Departure Disposition: [facility] Inpatient Acute Clinical Impression: Altered mental status Qualifiers: Altered mental status type: unspecified Qualified Code(s): R41.82 - Altered mental status, unspecified Condition: Good
[2019-01-01] MEDS ORDERED: LORazepam 2 MG/ML INJ IVP ONE (09:40)
[2019-01-01] MEDS ORDERED: NS 1,000 ML IV ONE (09:40)
[2019-01-01 09:55] LABS: PLATELET COUNT 196 10^3/uL (150-400)
[2019-01-01 10:04] LABS: INR 0.9 (0.83-1.16); PROTIME(PATIENT) 12.4 SEC (12.0-15.0)
[2019-01-01] MEDS ORDERED: levETIRAcetam 1000MG/NACL 100 ML IV ONE (11:28)
--- NOTE | 2019-01-01 11:42 | ASMTCMCOM ---
CM Note CM Note Notes: Pt presented to the Emergency Department with altered mental status. History includes a hemorrhagic stroke in 2013, TIA, meningioma with radiation, right sided deficits and baseline aphasia, frequent falls, complex migraines, seizures, lumbar spinal surgery and eye surgery. Pt is and lives with her here in [place]. Per prior CM notes, pt has a caregiver for assistance during the day and has previously been open with outpatient [facility] physical therapy. Pt to be admitted for further observation and treatment. Discharge needs remain unclear at this time. CM will continue to follow. Discharge Plan: To be determined Date Signed: 01/01/2019 11:42 AM Electronically Signed By:Georgette De Leon RN
[2019-01-01] MEDS ORDERED: ONDANSETRON DISINTEGRATING 4 MG TAB PO PRN (12:02)
[2019-01-01] MEDS ORDERED: ONDANSETRON 4 MG/2 ML VIAL IVP PRN (12:02)
--- NOTE | 2019-01-01 14:52 | CPEKG ---
Test Reason : OPEN Blood Pressure : / mmHG Vent. Rate : 055 BPM Atrial Rate : 054 BPM P-R Int : 228 ms QRS Dur : 105 ms QT Int : 460 ms P-R-T Axes : 050 -10 049 degrees QTc Int : 440 ms Sinus rhythm Prolonged CO interval Confirmed by Vianca Kern ([id number]) on 01/01/2019 2:52:10 PM Referred By: Vianca Kern Confirmed By:Vianca Kern
[2019-01-01] MEDS ORDERED: LORazepam 2 MG/ML INJ IVP PRN (16:23)
[2019-01-01] MEDS: NS 1,000 ML IV SCH (17:01)
--- NOTE | 2019-01-01 17:19 | GHP ---
[f rep st] HISTORY AND PHYSICAL DATE OF ADMISSION: 01/01/2019 CHIEF COMPLAINT: Suspected seizure. HISTORY OF PRESENT ILLNESS: A 63-year-old female with history of hemorrhagic stroke with significant right-sided deficits, prior meningioma status post resection and baseline aphasia, who presents to [facility] ER with altered mental status. History is obtained for her who is bedside. States she aw maria teresa at 5 a.m. which is unusual for her, and then went back to bed. He woke at 6:30, which is his nor mal time and she usually asks for water at that time, but she did not. He thought that was unusual. At 7 a.m. he checked on her again, and she was not arousable. She had a blank stare, was looking to the right. Her eyes were not tracking. EMS noted glucose of 105. No recent cough, fevers, nausea, vomiting, diarrhea at home. He thinks she may be having intermitten t seizures in which she has a blank stare and does not respond to her. This can happen several times a week. Says she has been declining over the last several weeks with increased weakness. Has had a normal appetite. At baseline she is verbal, but aphasic. She is slow to comprehend, but does under stand. She uses a walker and one-person assist, but has relied more on a wheelchair over the past fe w weeks. 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 REVIEW OF SYSTEMS: I completed a 10-point review of systems, negative except in HPI. PAST MEDICAL HISTORY: 1. Meningioma. 2. Status post 4 surgeries and radiation. 3. Multiple TIAs. 4. Complex migraines. 5. Hemorrhagic stroke with right-sided deficits. 6. Ataxia. 7. T7 vertebral fracture. 8. Meningioma behind left eye. 9. Seizures. PAST SURGICAL HISTORY: Meningioma resection, left eye orbit reconstructive surgeries, wrist, elbow, L4/L5 spinal fusion, reconstructive foot surgeries x3. FAMILY HISTORY: Noncontributory. SOCIAL HISTORY: Lives with her at home. Uses a walker, but now wheelchair more often. 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 No alcohol or illicits. ALLERGIES: None. HOME MEDICATIONS: Keppra 1500 mg twice daily, Zoloft 50 mg daily, Valium 5 mg as needed, eyedrops, S inemet 0.5 mg daily, 1 tab p.o. twice daily baclofen. PHYSICAL EXAMINATION: VITAL SIGNS: Temperature 36.4, blood pressure 130/87, heart rate in 70s, resp irations 16, 94% on room air. GENERAL: She is in no acute distress. HEENT: Her gaze is right side d. She is turning her head toward my voice. Pupils are reactive. Conjunctival injection, left eye. Left eye protruding out. CV: Regular rate and rhythm. LUNGS: Clear anteriorly. ABDOMEN: Soft, no grimace. NEURO: She is not participating in exam, nonverbal at this point, does groan with ster nal rub. MUSCULOSKELETAL: Right upper and lower extremity rigidity. Increased tone. PSYCH: She i s nonverbal. LABS: WBC 3, hemoglobin 14, hematocrit 41, platelets 196. Coags within normal. Sodium 135, potassi um 4.8, chloride 100, carbon dioxide 30, creatinine 0.8. Troponin 0.[address] extensive features of encephalomalacia throughout both cerebral hemispheres with postsurgical changes. No acute infarct or hemorrhage. ASSESSMENT AND PLAN: 1. Acute metabolic encephalopathy: Suspect secondary to seizure. She was evaluated by her primary neurologist, Dr. Keenan. At this time, she was loaded with Keppra in the emergency room. No acut e stroke on CT. We will hold off on further imaging at this time. Will monitor in the ICU overnight with serial neuro checks and continue Keppra. 2. History of meningiomas: Status post multiple surgeries and radiation. 3. Parkinsonian-like symptoms: She was evaluated by Neurology team at [facility] and is on low-dose Sineme t. Will restart that when taking p.o. 4. History of hemorrhagic stroke with right-sided deficits: Has been declining for several weeks pe r . Does have in-home caretakers 5 days a week. Will have physical therapy/occupational health specialist apy evaluate. 5. Frequent falls: Has had multiple orthopedic fractures and surgeries, physical therapy/occupation al therapy. 6. Deep venous thrombosis prophylaxis, sequential compression devices. DISPOSITION: Patient warrants step-down admission for serial neuro checks and seizure precautions. /[id number]/MODL
[2019-01-01] MEDS: levETIRAcetam 1500MG/NACL 100 ML IV SCH (20:49)
--- NOTE | 2019-01-02 00:40 | GCON ---
[f rep st] CONSULTATION NEUROLOGICAL CONSULTATION REFERRING PHYSICIAN: Dr. Kern ADDITIONAL REFERRING PHYSICIAN: Dr. Brunner. HISTORY OF PRESENT ILLNESS: The patient is a 63-year-old woman whom I am asked to see in neurologic consultation regarding altered mental state. I have known this patient for many years and have frequ ently been involved in her care. There are detailed summaries of her multiple medical problems in e [facility], and she has had admissions here as well as at [facility] and other facilities ov er the years. On this occasion, her says that she was lethargic this morning, but he typical ly watches her for a few hours if she is acting like this and waits for it to resolve. In this case, it was not resolving. He said that she was having her head turn toward the right and tending to loo k toward the right. He did not see specific motor activity of convulsion or increased tone in the ex tremities, but she always has a right-sided severe spastic hemiparesis. She came to the emergency ro and was assessed by Dr. Kern. Here in the emergency department, she was noted to have a right gaze preference. She received lorazepam for the possibility of seizure. She has had a head CT that does not show evidence of new findings, but the profound abnormalities as previously documented with severe encephalomalacia predominantly in the left hemisphere. After receiving the Ativan her head wa s toward the midline, and she did not have a gaze preference any longer. In the interim, she remains very lethargic after the lorazepam, but no clinical seizure activity evid ent. The patient's past medical history is notable for multiple meningiomas with prior surgery 30 ye ars ago and radiation therapy and historically has experienced episodes of acute aphasia and increasi ng right-sided weakness with differential diagnosis of TIA, stroke, seizure, or complex migraine phen omena. There have been occasions in the past where she has received tPA, but we have often been unsu re about stroke. At this point, the general pattern has been 1 of episodes thought to be more likely related to a complex migraine phenomena or complex partial seizure phenomenon. On 1 occasion, she d id experience a small left hemisphere hemorrhagic infarction, which led to worsening of the right-jess ed weakness and a profound spastic hemiparesis. We are unable to definitively sometimes define what characterizes these episodes and in December of 2017. She had a hospitalization with EEG monitoring at [facility] with similar severe impairments and did not have electrographic evidence of seizure. The patient ultimately has had other evaluations as recently as October of 2018 in which she was in need of close monitoring for suspected seizure postictal phenomenon although it was never definitive. Shiloh gonzalez was seen by Dr. Montalvo, and the Keppra dosing was increased to 1500 mg twice daily. We have not had a ny definite problems since then in terms of severe episodes, although he said a few days ago, she had a partial event like this that cleared on its own again back to her baseline. The patient missed her morning Keppra dosing. CURRENT MEDICATIONS: At home, Keppra 1500 mg twice daily, Zoloft 50 mg daily, Valium 5 mg at night a s needed for spasticity, eye drops. Carbidopa levodopa 25/100 mg taking half a tablet every 12 hours , and 25/100 twice daily. This was originally added during 1 of her rehab stays several months ago t o see if might help some of the parkinsonism she has, and it is unclear how effective that it has bee n. She has baclofen 10 mg 3 times per day, which is in place because of the severe spasticity on the right side. Historically, I have treated her with Botox injections for the spasticity and it has ne jack been very effective at controlling it. ALLERGIES: No known drug allergies. PHYSICAL EXAMINATION: VITAL SIGNS: Blood pressure is currently 128/88, pulse of 64, respirations 16 . Temperature 35.5. This was checked axillary. GENERAL: She is lying in the bed in no acute distr ess, but very poorly responsive. HEENT: Eyes are partially open or closed, and mouth is held open w ith no spontaneous movements. She will partially arouse with some vigorous stimulation to have some eye opening, which can be to stimulation or sometimes spontaneously and then unsustained. There is n ot currently a strong head turning or gaze preference. She begins to grimace a little bit as I am ex amining her, particularly when I start to move the right arm and the right leg. She will not attend to me or track me, but her eyes are in a conjugate position currently. She has no asymmetry of facia l movement now. The motor exam reveals the severe right-sided hemiplegia and spasticity. She also h as left-sided weakness, but that is more in the 3/5 range. Reflexes are hyperactive with bilateral B abinski signs. DIAGNOSTIC DATA: Unremarkable. Normal INR. Chemistries unremarkable. Head CT does not show any ev idence of new pathology. IMPRESSION: Total unit time of 70 minutes. This patient is experiencing an episode not dissimilar t o some she has had in the past, although it is a profound degree of decreased responsiveness, suggest ing she may have had some unwitnessed partial seizure phenomena and exacerbation of her baseline neur ologic status, which is normally 1 of being able to interact effectively, although slow. She does dumas ve no evidence now of ongoing seizure activity other than the decreased responsiveness. I do not see subtle or overt seizure activity evident. The head turning and eye deviation responded to the loraz epam arguing more in favor of a left hemisphere seizure phenomenon, which has now resolved. As noted above, which she had a similar phenomenon a year ago, the prolonged EEG monitoring at [facility], did n ot document electrographic seizure activity. Less likely is a stroke or transient ischemic attack or hemorrhage, but we do not see any evidence of that on the CT at least. I think it is safe for her t o remain here at the hospital and not be transferred for continuous EEG monitoring. Her decreased le godfrey of responsiveness justifies continues stay in the emergency department until she is stabilized or transfer to the intensive care unit for close monitoring. Because she missed her Keppra dose this , I gave her a loading dose of a 1000 mg intravenous. For now, we should hold the baclofen and the Sinemet and avoid benzodiazepines. However, I do not want continuous, complete cessation of tami lofen because of risk of withdrawal-related phenomena. Therefore, we will monitor her closely and sh e should continue on the Keppra 1500 mg intravenous twice daily. If there is overt seizure activity, then lorazepam can be used as needed for protection. /[id number]/MODL
[2019-01-02] MEDS: NS 1,000 ML IV SCH (02:11)
--- NOTE | 2019-01-02 09:17 | HOSPPROG ---
Hospitalist Progress Note Assessment/Plan: #Metabolic encephalopathy -minimal responsiveness today -EEG showing generalized slowing, but no seizure over left hemisphere with corresponds to known pathology' -frequent neuro checks, avoids sedative medications #Parkinsonian-like features: holding Sinemet #h/o hemorrhagic CVA with right-sided deficits: relying on wheelchair more over last few weeks; declining per #h/o meningiomas: s/p several resections, chemo #Diet: NPO, hold off feeding tube for now. IVFs #DVT ppx: SCD #Disp: inpatient admission for serial neuro checks, PT Subjective: minimally responsive today Objective: Vital Signs Temp Pulse Resp BP Pulse Ox 37.5 C 88 23 H 113/55 L 94 01/02/19 04:00 01/02/19 04:00 01/02/19 04:00 01/02/19 04:00 01/02/19 04:00 01/01/19 01/02/19 01/03/19 05:59 05:59 05:59 Intake Total 1185 Balance 1185 PT 12.4 SEC (12.0-15.0) 01/01/19 09:35 INR 0.90 (0.83-1.16) 01/01/19 09:35 - Time Spent With Patient Time Spent with Patient: greater than 35 minutes Time Spent with Patient: Greater than 35 minutes spent on this patients care, greater than 50% of time spent counseling, educating, and coordinating care regarding the above mentioned plan. - Physical Exam Constitutional: no apparent distress Eyes: PERRL, other (left eye protruding) Ears, Nose, Mouth, Throat: moist mucous membranes Cardiovascular: regular rate and rhythym Respiratory: no respiratory distress Gastrointestinal: other (no grimace with palpation) Neurologic: other (withdrawls from pain left hand. Rigid, increased tone RUE/RLE ), No AAOx3 Psychiatric: interacting appropriately ICD10 Worksheet Patient Problems: Problems Problem Status Onset Altered mental status Acute Concussion injury of brain Active Migraine with aura Active Seizure disorder Active flatfoot Active Acute encephalopathy Acute CVA (cerebral vascular accident) Acute Intracerebral hematoma Acute
[2019-01-02] MEDS: levETIRAcetam 1500MG/NACL 100 ML IV SCH ×2 (10:29→21:55)
--- NOTE | 2019-01-02 10:34 | NEUROPROG ---
Assessment: Total unit time of 25 min. The patient has a state of unresponsiveness of uncertain source but has had similar phenomena in the past as outlined. I am going to obtain a EEG today to look for any nonconvulsive seizure phenomena and will continue the current dosing of Keppra. We are trying to avoid sedating drugs but may need to put in a feeding tube later today or tomorrow for low- dose baclofen to avoid excessive withdrawal phenomena and to facilitate nutrition of necessary. It might also be worth considering a low-dose stimulant such as Ritalin to see if that could help the reticular activating system. Her asked me today if the EEG does not show as an explanation what the next step would be. I explained this to him and would likely ultimately try to get a brain MRI to make sure there is no evidence of brainstem ischemia that could account for this or bihemispheric pathology beyond her baseline such as thalamic lesions. However, it would be very difficult for her to tolerate an MRI at her current state and we would like to avoid intubation if at all possible. She is protecting her airway fairly well right now but she is at risk of passive aspiration because of this relatively poor state of responsiveness. Subjective: Overnight, the patient has not received any additional sedatives and I have held her sedating medication in the form of baclofen or benzodiazepine. Her says he has not seen any significant change although she has sometimes had some spontaneous movements. He is not witness the strong eye deviation or head deviation that occurred yesterday. She yawns occasionally but is not verbalizing or following commands. Objective: Vital Signs Temp Pulse Resp BP Pulse Ox 37.5 C 88 23 H 113/55 L 94 01/02/19 04:00 01/02/19 04:00 01/02/19 04:00 01/02/19 04:00 01/02/19 04:00 01/01/19 01/02/19 01/03/19 05:59 05:59 05:59 Intake Total 1185 Balance 1185 PT 12.4 SEC (12.0-15.0) 01/01/19 09:35 INR 0.90 (0.83-1.16) 01/01/19 09:35 She is currently poorly responsive partial eye opening spontaneously intermittently. With voice she sometimes responds but a little stimulation leads to better eye opening and particularly when I try to move the right arm and leg where she has somewhat rigidity in typically is painful for her. At right-sided spasticity is not changed. Her left side remains fairly flaccid in the arm and spontaneously will move a little bit in the 2/5 range. The pupils have conjugate roving movement for the most part when I passively polar eyes open and she does not clearly attend to me. She makes a frowning expression sometimes when the pain occurs I did witness or yawning a few times. I do not see any subtle seizure activity. Allergies/Adverse Reactions: No Allergies [NKA] Allergy (Verified 10/26/18 10:13)
--- NOTE | 2019-01-02 13:00 | NEUROPROG ---
Assessment: Total unit time of 25 min. The patient has a state of unresponsiveness of uncertain source but has had similar phenomena in the past as outlined. I am going to obtain a EEG today to look for any nonconvulsive seizure phenomena and will continue the current dosing of Keppra. We are trying to avoid sedating drugs but may need to put in a feeding tube later today or tomorrow for low- dose baclofen to avoid excessive withdrawal phenomena and to facilitate nutrition of necessary. It might also be worth considering a low-dose stimulant such as Ritalin to see if that could help the reticular activating system. Her asked me today if the EEG does not show as an explanation what the next step would be. I explained this to him and would likely ultimately try to get a brain MRI to make sure there is no evidence of brainstem ischemia that could account for this or bihemispheric pathology beyond her baseline such as thalamic lesions. However, it would be very difficult for her to tolerate an MRI at her current state and we would like to avoid intubation if at all possible. She is protecting her airway fairly well right now but she is at risk of passive aspiration because of this relatively poor state of responsiveness. Addendum: The patient is receiving EEG recording currently and there is generalized slowing the particular focal slowing over the left hemisphere without evidence of epileptiform activity and no electrographic seizures. There is significant reactivity of the background rhythms with verbal and tactile stimulation leading to increase frequencies and temporary resolution of the focal slow waves over the left hemisphere. This is a pattern consistent with focal pathology over the left hemisphere which is a good correlation to her known clinical findings and radiographic findings as well as a pattern reflecting a nonspecific encephalopathy. The reactivity is a positive sign and her clinical features are starting to get better. Therefore we will continue close monitoring and I will have Dr. Montalvo follow up tomorrow. Objective: Vital Signs Temp Pulse Resp BP Pulse Ox 37.5 C 88 23 H 113/55 L 94 01/02/19 04:00 01/02/19 04:00 01/02/19 04:00 01/02/19 04:00 01/02/19 04:00 01/01/19 01/02/19 01/03/19 05:59 05:59 05:59 Intake Total 1185 Balance 1185 PT 12.4 SEC (12.0-15.0) 01/01/19 09:35 INR 0.90 (0.83-1.16) 01/01/19 09:35 Allergies/Adverse Reactions: No Allergies [NKA] Allergy (Verified 10/26/18 10:13)
[2019-01-02] MEDS: D5W LR 1,000 ML IV SCH (13:45)
--- NOTE | 2019-01-02 14:03 | PDCONSULT ---
Scientific Advisor Note: ASSESSMENT 63-year-old female with complex neurologic history including multiple meningiomas and hemorrhagic CVA with residual right-sided deficits as well as complex migraines admitted with acute encephalopathy. # encephalopathy. Acute. EEG without nonconvulsive status. CT head without intracranial Unclear precipitating factors may be related to complex migraines. This has happened in past and often slowly resolved spontaneously. Dr. Keenan knows the patient well. # complex migraines. # history of hemorrhagic CVA with residual right-sided deficits PLAN # appreciate care by Dr. Keenan of Neurology. # may consider low-dose stimulant such as Ritalin or similar # minimize sedating medications at all cost # continue IV medications # unable to take p.o. but will defer tube feed placement at this time given history and partner preference # unlikely to do MRI due to complex nature and risk for aspiration # trend electrolytes # Feeding - NPO # Analgesia none # Sedation none # Thromboprophylaxis - SQ hep # Head of bed elevated # Ulcer prophylaxis - H2 all # Glucose SSI # Skin no skin breakdown # Delirium - delirium precautions IMAGING Personally reviewed radiographic images well as formal radiology reads 01/01/2019 CT head multiple areas of encephalomalacia in left frontal, temporal and parietal regions unchanged from prior. No obvious intracranial hemorrhage, mass new mass or midline shift. Partially calcified mass in the lateral aspect of left orbital cavity unchanged from prior Consult I was asked by Dr. Cheek of [facility] to evaluate this patient for ICU care in the setting of acute encephalopathy and possible intracranial hemorrhage Chief complaint Somnolent, arousable LEIGH Leiva is a 63-year-old female well known to [facility] in Dr. Keenan who presented to the ER after being brought by her . He states he will get approximately 5:00 a.m. Which is unusual in back to bed. Then awoke at 6:00 a.m. And found patient minimally arousable with a blank stare and right-sided gaze deviation. Poor tracking ports once the pain. Per she has not had recent fevers, chills, cough, nausea, vomiting, diarrhea. She does intermittently stair and has poor response. She is able to ambulate slowly with a walker, dress herself change and clothes. She has a complex medical history including multiple minute meningioma status post for prior surgeries and radiation as well as complex migraines as well as TIAs and a hemorrhagic stroke with residual right-sided deficits. She currently has a slowly growing meningioma behind her left eye causing symptoms. In the emergency department she was given Ativan for possible nonconvulsive status felt significant change in symptoms. Allergies No known drug allergies Past medical history Multiple meningioma status post 4+ prior surgeries and radiation therapy, complex migraines, hemorrhagic stroke with residual right-sided deficits, ataxia , active growing meningioma behind left eye, possible seizure disorder, Parkinson's like features Medications Keppra 1500 p. O. Twice daily, Zoloft 50 mg daily, Valium p.r.n., Sinemet, baclofen Social history Lives with . Has 24/7 caregiver 5 days a week Family history No family history of recurrent meningiomas Review of systems Unable to obtain review of systems secondary to patient's mental status. Physical exam Vitals afebrile, pulse 74, blood pressure 112/78, respiratory is 16 94% on room air GEN: NAD, lying in bed staring blankly to the right NEURO: Lying in bed, minimally responsive to nail bed pressure, no blink to threat, minimal gag, no significant hyper clonus or hyperreflexia. No flaccidity HEENT: PERRL, EOMI, MMM, OP clear NECK: supple, trachea midline CHEST normal shape, no pes excavatum CVS: rrr no m/r/g PULM: CTA B, no wheezes/rales/rhonchi ABD: soft, NT, ND, NABS EXT: no swelling, no cyanosis, full ROM SKIN: warm, dry, intact, no rash PSYCH flat affect stand blankly at ceiling Labs Reviewed, no significant leukocytosis, anemia, hypoglycemia, metabolic derangements
--- NOTE | 2019-01-02 17:00 | PDMN ---
Medical Necessity Medical necessity: Change to inpt as of 01/02/19 @ 14:37, meets inpt criteria per MD order and Neurology GRG. 63 y/o w/complex neuro hx including mult meningiomas and hemorrhagic CVA w/R sided deficits and complex migraines, admitted w/acute encephalopathy. Upgraded to inpt for persistent minimal responsiveness, ongoing serial neuro checks, neuro consult, SDU care, EEG, IV Keppra, IVF, NPO, anticipate>2MN for ongoing eval/management of above.
[2019-01-02] MEDS ORDERED: PETROLAT,WHT/MIN OIL/SOD CHL 3.5 GM OPHT.OINT EACHEYE PRN (17:24)
[2019-01-03] MEDS: D5W LR 1,000 ML IV SCH ×2 (00:30→03:47)
--- NOTE | 2019-01-03 09:29 | HOSPPROG ---
Hospitalist Progress Note Assessment/Plan: #Metabolic encephalopathy -significant improvement today -EEG showing generalized slowing, but no seizure over left hemisphere with corresponds to known pathology from prior meningiomas, encephalomalacia #Parkinsonian-like features: resume Sinemet #h/o hemorrhagic CVA with right-sided deficits: relying on wheelchair more over last few weeks; declining per #h/o meningiomas: s/p several resections, chemo #Diet: regular diet #DVT ppx: SCD #Disp: inpatient admission for serial neuro checks, PT Subjective: sitting up in chair Objective: Vital Signs Temp Pulse Resp BP Pulse Ox 36.3 C 63 17 102/64 93 01/03/19 07:52 01/03/19 07:52 01/03/19 07:52 01/03/19 07:52 01/03/19 07:52 01/02/19 01/03/19 01/04/19 05:59 05:59 05:59 Intake Total 1551 Output Total 625 Balance 926 PT 12.4 SEC (12.0-15.0) 01/01/19 09:35 INR 0.90 (0.83-1.16) 01/01/19 09:35 - Time Spent With Patient Time Spent with Patient: greater than 35 minutes Time Spent with Patient: Greater than 35 minutes spent on this patients care, greater than 50% of time spent counseling, educating, and coordinating care regarding the above mentioned plan. - Physical Exam Constitutional: no apparent distress, other (sitting up in chair) Eyes: PERRL Ears, Nose, Mouth, Throat: other (left eye protruding) Cardiovascular: regular rate and rhythym Respiratory: no respiratory distress Gastrointestinal: normoactive bowel sounds Genitourinary: No hernandez in urethra Skin: warm Musculoskeletal: other (increased tone RUE/RLE ) Neurologic: other (alert to place, not date, year (BL AX3). Slow to answer) Psychiatric: interacting appropriately ICD10 Worksheet Patient Problems: Problems Problem Status Onset Altered mental status Acute Concussion injury of brain Active Migraine with aura Active Seizure disorder Active flatfoot Active Acute encephalopathy Acute CVA (cerebral vascular accident) Acute Intracerebral hematoma Acute
--- NOTE | 2019-01-03 09:50 | ASMTCMCOM ---
CM Note CM Note Notes: Patient chart reviewed for discharge planning purposes. Per PT note further evaluation is needed for recommendations for follow up. Patient previously had [facility] and private caregivers. CM to follow for needs. Previous hemorrhagic stoke now presenting with questionable seizure activity, CM to follow for needs. Plan: TBD Date Signed: 01/03/2019 09:49 AM Electronically Signed By:Sanjana Miller RN
--- NOTE | 2019-01-03 10:34 | CPEEG ---
[f rep st] ELECTROENCEPHALOGRAM DATE OF STUDY: 01/02/2019 DATE OF INTERPRETATION: 01/03/2019 INTERPRETATION: This EEG is very abnormal due to the following reasons: 1. There are potentially epileptogenic abnormalities over the left frontotemporoparietal head regions. These findings would be consistent with a focal seizure disorder. 2. There was a severe degree of slowing and asymmetry of the left hemisphere. These findings are consistent with the patient's known underlying postsurgical changes in these regions. 3. There was a moderate degree of diffuse slowing present in the background consistent with a moderate diffuse disturbance of cerebral function. There was no definitive evidence of ongoing electrographic seizure activity during the study. REPORT: This EEG contains 6 Hz theta activity over the posterior head regions, maximal right, during alertness. There was a severe degree of left hemispheric slowing and asymmetry composed of continuous polymorphic oahfrlgd-hi-yodk amplitude delta activity and increased amplitudes (breach rhythm). There was also a moderate degree of diffuse nonspecific slowing present in the background as expressed by the ongoing low amplitude delta and predominantly theta slowing over the right hemisphere. Within the ongoing slowing and breach rhythm over the left hemisphere, there were spikes and sharp waves present over the left frontal temporoparietal head regions; however, this activity did not have definite evolution or rhythmicity to qualify as an electrographic seizure discharge. There was reactivity in the tracing. When the technologist said the patient's name, there was mild improvement in the background activity with faster frequency activities. /[id number]/MODL MTDD
[2019-01-03] MEDS: levETIRAcetam 1500MG/NACL 100 ML IV SCH ×2 (10:42→20:14)
--- NOTE | 2019-01-03 11:38 | NEUROPROG ---
Assessment: 1. Multiple meningiomas status post resection 2. Left hemisphere encephalomalacia and postoperative changes secondary to 1. 3. Transient neurologic symptoms This is a very pleasant patient we know well from multiple stereotyped presentations of decreased mental status of unknown etiology. Please see previous notes for details. Her EEG did not show ongoing electrographic seizure activity. However there were spikes and sharp waves over the left hemisphere. We discussed that this tracing could be seen as her baseline or as a postictal tracing. Certainly her underlying structural brain abnormalities could lend itself to other nonspecific encephalopathic symptoms, such as sleep-wake disturbances. Going forward, she will continue Keppra 1500 mg twice daily. Risks, benefits and alternatives were discussed with Candace including mood changes . She will have normal therapies to help with placement from the hospital. Most importantly, if she presents again to the ED with the same symptomatology I recommend immediate transfer to [facility] for immediate continuous EEG monitoring. She has had this study before but presented 12 hr to [facility] after the symptoms started and resolving. Therefore, it may have missed any possible seizure activity. Therefore I would recommend immediate transfer to [facility] if she comes back to our emergency department with these symptoms. The patient and her are agreeable. We will continue to follow as needed. 35 total minutes floor time; over 50% counseling the patient, her , her caregiver and coordination of care Subjective: Symptoms improved Objective: Vital Signs Temp Pulse Resp BP Pulse Ox 36.3 C 63 17 102/64 93 01/03/19 07:52 01/03/19 07:52 01/03/19 07:52 01/03/19 07:52 01/03/19 07:52 01/02/19 01/03/19 01/04/19 05:59 05:59 05:59 Intake Total 1551 Output Total 625 Balance 926 PT 12.4 SEC (12.0-15.0) 01/01/19 09:35 INR 0.90 (0.83-1.16) 01/01/19 09:35 She is now awake and alert Following commands Aphasia Right-sided hemiplegia Allergies/Adverse Reactions: No Allergies [NKA] Allergy (Verified 10/26/18 10:13)
--- NOTE | 2019-01-03 12:49 | PDCONSULT ---
Optical Mechanic Apprentice Note: NOTE: If this patient returns to ED with same symptoms, plan will be to call [facility] for immediate transfer for continuous EEG monitoring. We want to exclude that these are seizures causing her transient neurologic symptoms. Family is in agreement.
[2019-01-03] MEDS ORDERED: CARBOXYMETHYLCELLULOSE 0.5% 0.4 ML DROPERETTE EACHEYE PRN (14:00)
--- NOTE | 2019-01-03 15:09 | WOCRNPDOC ---
WOCRN Advanced Assessment Note - Skin Integrity Problem, Advanced Assess Right First Toe Dressing Type: Allevyn Life Dressing Description: Clean/Dry, Intact Exudate Amount: None Integumentary Issue Intervention: Visualized Under Dressing Katrina Wound Tissue: Calloused Wound Bed Constitution: Scab, Stable Eschar Site Measurement - Head-to-Toe Length X Width X Depth (cm): 0.5x0.6xraised Pressure Injury Stage: Unstageable Pressure Injury Present on Admit: Yes Skin Integrity Problem Comment: Patient has a hammer toe and due to this, the proximal interphalageal joint is raised. This compresses the skin and tissues on the dorsal toe, when a shoe is worn. May use moleskin around the area to keep the pressure off the area. OK to leave scab/eschar dry and intact. May cover with bandaid or allevyn life, or non bordered foam. Wound care will sign off.
[2019-01-03] MEDS: SERTRALINE HCL 50 MG TAB PO SCH (16:51)
[2019-01-03] MEDS: ACETAMINOPHEN 325 MG TAB PO PRN (20:14)
[2019-01-03] MEDS: CARBIDOPA/LEVODOPA 25 MG/100 MG TAB PO SCH (20:14)
[2019-01-04] MEDS: levETIRAcetam 500 MG TAB PO SCH ×2 (08:06→20:56)
[2019-01-04] MEDS: SERTRALINE HCL 50 MG TAB PO SCH (08:06)
[2019-01-04] MEDS: CARBIDOPA/LEVODOPA 25 MG/100 MG TAB PO SCH ×3 (08:06→20:56)
--- NOTE | 2019-01-04 12:14 | NEUROPROG ---
Assessment: 1. Multiple meningiomas status post resection 2. Left hemisphere encephalomalacia and postoperative changes secondary to 1. 3. Transient neurologic symptoms She is now getting completely back to her baseline. She is more alert and lucid today. Going forward, she will continue Keppra 1500 mg twice daily. Risks, benefits and alternatives were discussed with Keppra including mood changes . She will have normal therapies to help with placement from the hospital. Most importantly, if she presents again to the ED with the same symptomatology I recommend immediate transfer to [facility] for immediate continuous EEG monitoring. She has had this study before but presented 12 hr after symptom onset to [facility] after the symptoms started resolving. Therefore, it may have missed any possible seizure activity. Therefore I would recommend immediate transfer to [facility] if she comes back to our emergency department with these symptoms. The patient and her are agreeable. We will continue to follow as needed. 35 total minutes floor time; over 50% counseling the patient, her , her caregiver and coordination of care Subjective: Symptoms resolved/resolving Objective: Vital Signs Temp Pulse Resp BP Pulse Ox 36.4 C 53 L 11 L 116/83 H 95 01/04/19 08:00 01/04/19 11:59 01/04/19 11:59 01/04/19 11:59 01/04/19 11:59 01/03/19 01/04/19 01/05/19 05:59 05:59 05:59 Intake Total 1551 1407 Output Total 625 750 Balance 926 657 PT 12.4 SEC (12.0-15.0) 01/01/19 09:35 INR 0.90 (0.83-1.16) 01/01/19 09:35 She is awake and alert Much more lucid and conversant today Chronic right-sided deepak paresis No seizure activity in my presence Allergies/Adverse Reactions: No Allergies [NKA] Allergy (Verified 10/26/18 10:13)
--- NOTE | 2019-01-04 14:14 | HOSPPROG ---
Hospitalist Progress Note Assessment/Plan: #Metabolic encephalopathy -significant improvement today -EEG showing generalized slowing, but no seizure over left hemisphere with corresponds to known pathology from prior meningiomas, encephalomalacia -if returns to [facility] ER, needs emergent transfer to [facility] for continuous EEG #Parkinsonian-like features: resume Sinemet #h/o hemorrhagic CVA with right-sided deficits: relying on wheelchair more over last few weeks; declining per #h/o meningiomas: s/p several resections, chemo #Deconditioning: PT/OT. Inpt rehab to evaluate #Diet: regular diet #DVT ppx: SCD #Disp: inpatient admission for serial neuro checks, PT. OK for floor Subjective: Mental status improved per her care Objective: Vital Signs Temp Pulse Resp BP Pulse Ox 36.4 C 53 L 11 L 116/83 H 95 01/04/19 08:00 01/04/19 11:59 01/04/19 11:59 01/04/19 11:59 01/04/19 11:59 01/03/19 01/04/19 01/05/19 05:59 05:59 05:59 Intake Total 1551 1407 Output Total 625 750 Balance 926 657 PT 12.4 SEC (12.0-15.0) 01/01/19 09:35 INR 0.90 (0.83-1.16) 01/01/19 09:35 - Time Spent With Patient Time Spent with Patient: greater than 35 minutes Time Spent with Patient: Greater than 35 minutes spent on this patients care, greater than 50% of time spent counseling, educating, and coordinating care regarding the above mentioned plan. - Physical Exam Constitutional: no apparent distress Eyes: other (left eye protrusion) Ears, Nose, Mouth, Throat: moist mucous membranes Cardiovascular: regular rate and rhythym Respiratory: no respiratory distress Gastrointestinal: normoactive bowel sounds Skin: warm Musculoskeletal: other (5/5 UE strength on left) Neurologic: other (alert to hospital. Not date, year. ), No AAOx3 Psychiatric: interacting appropriately ICD10 Worksheet Patient Problems: Problems Problem Status Onset Altered mental status Acute Concussion injury of brain Active Migraine with aura Active Seizure disorder Active flatfoot Active Acute encephalopathy Acute CVA (cerebral vascular accident) Acute Intracerebral hematoma Acute
--- NOTE | 2019-01-04 14:30 | ASMTCMCOM ---
CM Note CM Note Notes: Pt care discussed in rounds, PT recommending inpatient rehab, MD submit order for inpatient rehab. CM to follow. Plan: Inpatient Rehab Date Signed: 01/04/2019 02:29 PM Electronically Signed By:SHAHID Pascual
--- NOTE | 2019-01-05 09:22 | HOSPPROG ---
Hospitalist Progress Note Assessment/Plan: 63-year-old female with complex neurologic history including multiple meningiomas s/p repair and hemorrhagic CVA with residual right-sided deficits as well as complex migraines admitted with acute encephalopathy. #Metabolic encephalopathy -resolved, at baseline -EEG showing generalized slowing, but no seizure over left hemisphere with corresponds to known pathology from prior meningiomas, encephalomalacia -if returns to [facility] ER, needs emergent transfer to [facility] for continuous EEG as timing of EEG during this hospitalization may have missed seizure -cont Keppra 1500mg BID -Neurology consulted #Parkinsonian-like features: cont Sinemet #h/o hemorrhagic CVA with right-sided deficits: relying on wheelchair more over last few weeks; declining per #h/o meningiomas: s/p several resections, chemo #Deconditioning and Generalized weakness: PT/OT. Inpt rehab to evaluate. May need a SNF otherwise #Diet: regular diet #DVT ppx: SCD #Disp: inpatient admission for serial neuro checks, PT. Will need inpatient rehab. Awaiting approval Subjective: no overnight events. Awaiting rehab approval. Some concern that she is not at baseline mentation per family. She can follow commands, provide history, etc . Objective: Vital Signs Temp Pulse Resp BP Pulse Ox 36.5 C 66 18 113/58 L 90 L 01/04/19 23:57 01/04/19 23:57 01/04/19 23:57 01/04/19 23:57 01/04/19 23:57 01/04/19 01/05/19 01/06/19 05:59 05:59 05:59 Intake Total 1407 120 Output Total 750 500 Balance 657 -380 PT 12.4 SEC (12.0-15.0) 01/01/19 09:35 INR 0.90 (0.83-1.16) 01/01/19 09:35 - Physical Exam Constitutional: no apparent distress Eyes: PERRL Ears, Nose, Mouth, Throat: moist mucous membranes Cardiovascular: regular rate and rhythym, No edema Respiratory: no respiratory distress, no rales or rhonchi, clear to auscultation Gastrointestinal: normoactive bowel sounds Skin: warm Musculoskeletal: generalized weakness Neurologic: AAOx3 Psychiatric: interacting appropriately, not anxious, not encephalopathic Lymph, Heme, Immunologic: No petechiae ICD10 Worksheet Patient Problems: Problems Problem Status Onset Altered mental status Acute Concussion injury of brain Active Migraine with aura Active Seizure disorder Active flatfoot Active Acute encephalopathy Acute CVA (cerebral vascular accident) Acute Intracerebral hematoma Acute
--- NOTE | 2019-01-05 09:40 | NEUROPROG ---
Assessment: 1. Multiple meningiomas status post resection 2. Left hemisphere encephalomalacia and postoperative changes secondary to 1. 3. Transient neurologic symptoms She is now getting completely back to her baseline (80% today per child care lead teacher). She is more alert and lucid today. Going forward, she will continue Keppra 1500 mg twice daily. Risks, benefits and alternatives were discussed with Candace including mood changes . She will have normal therapies to help with placement from the hospital. Most importantly, if she presents again to the ED with the same symptomatology I recommend immediate transfer to [facility] for immediate continuous EEG monitoring. She has had this study before but presented 12 hr after symptom onset to [facility] after the symptoms started resolving. Therefore, it may have missed any possible seizure activity. Therefore I would recommend immediate transfer to [facility] if she comes back to our emergency department with these symptoms. The patient and her are agreeable. The patient is very close to her baseline. However, she will need further assessment for disposition in terms of gait and safety. I defer to my colleagues in OT and physical therapy regarding specific recommendations. We will sign off and follow up as needed. Please do not hesitate to call for any questions or changes in neurologic status with this patient. 35 total minutes floor time; over 50% counseling the patient, her , her caregiver and coordination of care Subjective: Patient is further improved today, per caregiver she is at 80% of her baseline Objective: Vital Signs Temp Pulse Resp BP Pulse Ox 36.5 C 66 18 113/58 L 90 L 01/04/19 23:57 01/04/19 23:57 01/04/19 23:57 01/04/19 23:57 01/04/19 23:57 01/04/19 01/05/19 01/06/19 05:59 05:59 05:59 Intake Total 1407 120 Output Total 750 500 Balance 657 -380 PT 12.4 SEC (12.0-15.0) 01/01/19 09:35 INR 0.90 (0.83-1.16) 01/01/19 09:35 Patient is awake and alert She was eating breakfast when I examined her Chronic right-sided edepak paresis Aphasia Allergies/Adverse Reactions: No Allergies [NKA] Allergy (Verified 10/26/18 10:13)
[2019-01-05] MEDS: CARBIDOPA/LEVODOPA 25 MG/100 MG TAB PO SCH ×3 (10:17→20:24)
[2019-01-05] MEDS: SERTRALINE HCL 50 MG TAB PO SCH (10:17)
[2019-01-05] MEDS: levETIRAcetam 500 MG TAB PO SCH ×2 (10:17→20:24)
--- NOTE | 2019-01-05 15:46 | ASMTCMCOM ---
CM Note CM Note Notes: CM was notified by inpatient rehab that they denied pt. CM notified pt's Colton ([phone]) who was upset by this decision and requested inpatient rehab would reconsider. CM left message for inpatient rehab. CM spoke with Rosaline from PT who reports they have spoken to pt and family about [facility] and feels pt would benefit from linkage there. Colton said he wanted to hear back from inpt rehab before considering [facility]. CM to call Colton tomorrow to figure out preferance/plan. CM to follow. Date Signed: 01/05/2019 03:46 PM Electronically Signed By:SHAHID Pascual
[2019-01-05] MEDS ORDERED: LORazepam 0.5 MG TAB PO PRN (18:16)
[2019-01-05] MEDS ORDERED: IPRATROPIUM/ALBUTEROL 3 ML DEYVIAL IH PRN (18:16)
[2019-01-06] MEDS: CARBIDOPA/LEVODOPA 25 MG/100 MG TAB PO SCH ×3 (08:17→20:59)
[2019-01-06] MEDS: SERTRALINE HCL 50 MG TAB PO SCH (08:17)
[2019-01-06] MEDS: levETIRAcetam 500 MG TAB PO SCH ×2 (08:17→20:59)
--- NOTE | 2019-01-06 10:44 | ASMTCMCOM ---
CM Note CM Note Notes: Per Pilar at [facility], they will not accept patient and decision not to change. I spoke with patient's Colton who is amenable to considering [facility]. I encouraged him to visit, and he will attempt to do this tonight. I have sent a referral to [facility]. They will initiate insurance authorization today. Case Management will follow. Date Signed: 01/06/2019 10:44 AM Electronically Signed By:Liza Lucio RN
--- NOTE | 2019-01-06 15:00 | HOSPPROG ---
Hospitalist Progress Note Assessment/Plan: 63-year-old female with complex neurologic history including multiple meningiomas s/p repair and hemorrhagic CVA with residual right-sided deficits as well as complex migraines admitted with acute encephalopathy. #Metabolic encephalopathy -resolved, at baseline -EEG showing generalized slowing, but no seizure over left hemisphere with corresponds to known pathology from prior meningiomas, encephalomalacia -if returns to [facility] ER, needs emergent transfer to [facility] for continuous EEG as timing of EEG during this hospitalization may have missed seizure -cont Keppra 1500mg BID -Neurology consulted #Parkinsonian-like features: cont Sinemet #h/o hemorrhagic CVA with right-sided deficits: relying on wheelchair more over last few weeks; declining per #h/o meningiomas: s/p several resections, chemo #Deconditioning and Generalized weakness: PT/OT. Inpt rehab to evaluate. May need a SNF otherwise #Diet: regular diet #DVT ppx: SCD #Disp: inpatient admission for serial neuro checks, PT. Awaiting approval for SNF. Subjective: no overnight events. no new complaints Objective: Vital Signs Temp Pulse Resp BP Pulse Ox 36.8 C 64 16 115/61 90 L 01/06/19 08:00 01/06/19 08:00 01/06/19 08:00 01/06/19 08:00 01/06/19 08:00 01/05/19 01/06/19 01/07/19 05:59 05:59 05:59 Intake Total 120 697 Output Total 500 1100 300 Balance -380 -403 -300 PT 12.4 SEC (12.0-15.0) 01/01/19 09:35 INR 0.90 (0.83-1.16) 01/01/19 09:35 - Physical Exam Constitutional: chronically ill appearing Eyes: PERRL, EOMI Ears, Nose, Mouth, Throat: moist mucous membranes Cardiovascular: regular rate and rhythym, No edema Respiratory: no respiratory distress, no rales or rhonchi, clear to auscultation Gastrointestinal: normoactive bowel sounds, No distension Skin: warm Musculoskeletal: generalized weakness Lymph, Heme, Immunologic: No petechiae ICD10 Worksheet Patient Problems: Problems Problem Status Onset Altered mental status Acute Concussion injury of brain Active Migraine with aura Active Seizure disorder Active flatfoot Active Acute encephalopathy Acute CVA (cerebral vascular accident) Acute Intracerebral hematoma Acute
[2019-01-07] MEDS: ACETAMINOPHEN 325 MG TAB PO PRN (03:19)
[2019-01-07] MEDS ORDERED: BACLOFEN 10 MG TAB PO PRN (03:25)
[2019-01-07] MEDS: CARBIDOPA/LEVODOPA 25 MG/100 MG TAB PO SCH ×2 (10:55→13:21)
[2019-01-07] MEDS: levETIRAcetam 500 MG TAB PO SCH (10:55)
[2019-01-07] MEDS: SERTRALINE HCL 50 MG TAB PO SCH (10:55)
--- NOTE | 2019-01-07 14:38 | PDDCSUM ---
Discharge Summary Discharge Summary: If returns to [facility] ER, needs emergent transfer to [facility] for continuous EEG as timing of EEG during this hospitalization may have missed seizure 63-year-old female with complex neurologic history including multiple meningiomas s/p repair and hemorrhagic CVA with residual right-sided deficits as well as complex migraines admitted with acute encephalopathy which has now resolved. See below for details per problem list. She was evaluated by Neurology. She is on Keppra bid. she is being discharged to SNF. She has generalized weakness DDx: #Metabolic encephalopathy -resolved, at baseline -EEG showing generalized slowing, but no seizure over left hemisphere with corresponds to known pathology from prior meningiomas, encephalomalacia -if returns to [facility] ER, needs emergent transfer to [facility] for continuous EEG as timing of EEG during this hospitalization may have missed seizure -cont Keppra 1500mg BID -Neurology consulted #Parkinsonian-like features: cont Sinemet #h/o hemorrhagic CVA with right-sided deficits: relying on wheelchair more over last few weeks; declining per #h/o meningiomas: s/p several resections, chemo #Deconditioning and Generalized weakness: PT/OT. SNF Exam: NAD AAO RRR CTA B S/NT/ND MEDS: SEE MED REC TOTAL TIME SPENT ON D/C IS 35 MINS
[2019-01-07 15:30] VITALS: BP 120/63
--- NOTE | 2019-01-07 16:08 | ASDISCHSUM ---
Discharge Information Plan Status:SNF Medically Cleared to Leave:01/06/2019 Discharge Date:01/07/2019 03:44 PM CM D/C [facility]position[facility] ADT D/C Disposition:[facility] Projected Discharge Date:01/07/2019 01:00 PM Transportation at D/C:ALS/BLS Discharge Delay Reason: Follow-Up Date:01/07/2019 01:00 PM Discharge Slot: Final Diagnosis:Altered Mental Status, Multiple Meningiomas s/p resection Placement Information Referral Type:*Retirement/SNF Referral ID:[id number] Provider Name:[facility] Address 1:[address] Address 2: City:[place] Selection Factors: State:[place] Patient Contact Information Contact Name:RAZA Relationship: Address:[address] [place] [address] City:[place] Alternate Phone: State/Zip Code:[place] [address] Email: Financial Information Financial Class:[employer] Primary Plan Desc:[facility] Primary Plan Number:[id number] Secondary Plan Desc: Secondary Plan Number: Assessment Information [facility] CM Progress Note CM Note CM Note Notes: Pt presented to the Emergency Department with altered mental status. History includes a hemorrhagic stroke in 2013, TIA, meningioma with radiation, right sided deficits and baseline aphasia, frequent falls, complex migraines, seizures, lumbar spinal surgery and eye surgery. Pt is and lives with her here in [place]. Per prior CM notes, pt has a caregiver for assistance during the day and has previously been open with outpatient [facility] physical therapy. Pt to be admitted for further observation and treatment. Discharge needs remain unclear at this time. CM will continue to follow. Discharge Plan: To be determined Date Signed: 01/01/2019 11:42 AM Electronically Signed By:Georgette De Leon RN [facility] CM Progress Note CM Note CM Note Notes: Patient chart reviewed for discharge planning purposes. Per PT note further evaluation is needed for recommendations for follow up. Patient previously had [facility] and private caregivers. CM to follow for needs. Previous hemorrhagic stoke now presenting with questionable seizure activity, CM to follow for needs. Plan: TBD Date Signed: 01/03/2019 09:49 AM Electronically Signed By:Sanjana Miller RN [facility] CM Progress Note CM Note CM Note Notes: Pt care discussed in rounds, PT recommending inpatient rehab, MD submit order for inpatient rehab. CM to follow. Plan: Inpatient Rehab Date Signed: 01/04/2019 02:29 PM Electronically Signed By:SHAHID Pascual [facility] CM Progress Note CM Note CM Note Notes: CM was notified by inpatient rehab that they denied pt. CM notified pt's Colton ([phone]) who was upset by this decision and requested inpatient rehab would reconsider. CM left message for inpatient rehab. CM spoke with Rosaline from PT who reports they have spoken to pt and family about [facility] and feels pt would benefit from linkage there. Colton said he wanted to hear back from in rehab before considering [facility]. CM to call Colton tomorrow to figure out preferance/plan. CM to follow. Date Signed: 01/05/2019 03:46 PM Electronically Signed By:SHAHID Pascual [facility] CM Progress Note CM Note CM Note Notes: Per Pilar at [facility], they will not accept patient and decision not to change. I spoke with patient's Colton who is amenable to considering [facility]. I encouraged him to visit, and he will attempt to do this tonight. I have sent a referral to [facility]. They will initiate insurance authorization today. Case Management will follow. Date Signed: 01/06/2019 10:44 AM Electronically Signed By:Liza Lucio RN Case Management Discharge Plan Note Case Management Discharge Discharge Order Complete? Answers: Yes Patient to Obtain Answers: Other Notes: SNF Medications Transportation Arranged Answers: [facility] will Pick (Date 01/07/2019 03:30 PM & Time) Case Management Transport Answers: Yes Form Complete Faxed Final Orders Answers: Yes Agency/Facility Transfer Answers: Yes Report Printed & Faxed to Receiving Agency Family Notified Answers: Yes Discharge Comments Notes: Patient discussed in medical rounds, she is medically ready for discharge today. SMITA Sanz shared the patients shared he does not think she is ready to go. CM call to Colton [phone], he shared he would like her to stay longer for strengthening CM shared the value of discharging to rehab is the focus of care is strengthening to support a safe transition home. states understanding. CM sent final orders to [facility] via [employer] and made call to Lawanda with [facility], patient scheduled for [facility] transport at 3:30. CM available to follow if any additional CM needs arise. Date Signed: 01/07/2019 04:07 PM Electronically Signed By:Jimena Diane Intervention Information
== END 2019-01-07 15:44 | DRG 71 ==
LOC: EDUNIT# → F2N 16:52 → OBSVTOIN 01-02 14:37 → F1N 01-04 21:25
PROVIDERS: ADMIT Internal Medicine; ATTEND Family Medicine
DX: G93.41 Metabolic encephalopathy (principal); I69.351 Hemiplegia and hemiparesis following cerebral infarction affecting right dominant side; R47.01 Aphasia; G25.9 Extrapyramidal and movement disorder, unspecified; Z86.011 Personal history of benign neoplasm of the brain; G43.909 Migraine, unspecified, not intractable, without status migrainosus
CPT/HCPCS: 84484-ER; 92507-GN; 92523-GN; 92526-GN; 92610-GN; 96374; 97112-GO; 97112-GP; 97162-GP; 97167-GO; 97530-GO; 97530-GP; 97535-GO; G0378; J1953; J2060

== ENCOUNTER 2019-01-14 22:25 | Observation (INO) | payer OTHER | END 2019-01-18 15:24 | LOC: F3N 01-15 02:09 ==